=== PATIENT | male | born 1970 | race Caucasian/White ===

== ENCOUNTER 2020-03-01 16:26 | Emergency (ER) | payer OTHER, SELFPAY ==
--- NOTE | ~2020-03-01 | US_ITS ---
EXAMINATION: US venous doppler LE RT EXAM DATE: 03/01/2020 17:39 INDICATION: Right leg swelling, redness. TECHNIQUE: Multiple grayscale, color flow and Doppler images of the right lower extremity deep venous system were obtained and reviewed. Comparison is made to prior examination from 06/23/2010. FINDINGS: The right common femoral, femoral, popliteal and profunda veins demonstrate normal color fl ow, respiratory variation, augmentation and compressibility. Color flow confirmed within the posteri or tibial, peroneal, and greater saphenous veins. IMPRESSION: No right lower extremity deep venous thrombosis. Reviewed, dictated and finalized at location A.
--- NOTE | 2020-03-01 17:03 | PC.NURSE ---
Patient in ultrasound when called for triage.
[2020-03-01 17:55] VITALS: BP 140/67; PULSE 80; RESP 18; TEMP 36.5; O2SAT 100
--- NOTE | 2020-03-01 18:48 | ED.GENADULT ---
HPI - General Adult General Chief complaint: Extremity Injury, Lower Stated complaint: possible dvt Time Seen by Provider: 03/01/20 18:20 Source: patient History of Present Illness HPI narrative: Patient is a 49 y/o male complaining of right lower leg pain since yesterday. He describes his pain as sharp stabbing and rates it as 7/10. His pain is located on medial aspect of lower part of right lower leg and radiate to upper part of right lower leg. There is no alleviating or exacerbating factor. He suspect that he may have been bitten by something, but did not witness any bug biting her. He was seen at urgent care and directed here for further evaluation. He also notes that he has some swelling of right lower leg and foot starting several days ago. He states that he had DVT and PE many years ago. Related Data Home Medications Medication Instructions Recorded Confirmed clonazepam 1 mg tablet 1 mg PO DAILY 05/22/19 05/25/19 mirtazapine 15 mg tablet 15 mg PO HS 05/22/19 05/25/19 aspirin 81 mg PO DAILY 03/01/20 Allergies Allergy/AdvReac Type Severity Reaction Status Date / Time No Known Allergies Allergy Verified 03/04/20 10:35 Review of Systems Constitutional: Constitutional: Denies chills, Denies fever(s), Denies headache(s) and Denies weakness Eyes: Eyes: Denies blurry vision ENT: Denies headache(s) and Denies neck pain Cardiovascular: Cardiovascular: Denies chest pain and Denies dyspnea Respiratory: Respiratory: Denies cough and Denies dyspnea Gastrointestinal: Gastrointestinal: Denies abdominal pain, Denies diarrhea, Denies nausea and Denies vomiting Genitourinary: Genitourinary: Denies hematuria and Denies dysuria Musculoskeletal: Musculoskeletal: Reports as per HPI, Denies back pain, Denies neck pain and Reports other (right lower leg pain and swelling) Neurologic: Denies headache(s) and Denies weakness [facility] Past Medical History Medical History History of pulmonary embolism Family History Family History Father Cerebrovascular accident Patient's father is Family history of aortic aneurysm Mother Patient's mother is Sibling Hypertension Social History Social History (Updated 03/04/20 @ 10:36 by Jacqui Vines [facility]) Smoking packs per day: 0.25 Smoking cigarettes per day: 5.0 Years smoked: 30 Smoking pack-years: 7.50 Smoking status: Current some day smoker Tobacco type: cigarettes Second hand tobacco smoke exposure: No Smoking end date: 05/20/10 Alcohol intake: current Exam Const: General: no acute distress and well developed Orientation/consciousness: oriented to person, oriented to place, oriented to time and patient oriented x3 HENMT: Head: normocephalic Ears: external ears normal General nose exam: Normal external nose present Eyes: General: appearance normal, both eyes and all related structures Conjunctivae: conjunctivae normal Neck: Neck: normal visual inspection and full ROM Chest: Chest palpation & inspection: normal inspection of the chest and no tenderness Resp: Effort & Inspection: normal respiratory effort Auscultation: clear to auscultation bilaterally Cardio: Rate: regular rate Rhythm: regular rhythm GI: GI Palp: No abdominal tenderness and Yes Soft to palpation Skin: General skin exam: normal color and turgor normal Neuro: General: oriented to person, oriented to place, oriented to time and patient oriented x3 Cognition (Neuro): normal cognition Extrem: General: normal to inspection and full ROM Right upper extremity: edema Psych: Appearance: grossly normal Mental Status: mental status grossly normal Affect: normal affect Course Consultations Consultation #1: Discussed with Dr. Joseph, who agrees to follow up with the patient. Date: 03/01/20 Time: 19:57 Vital Signs Vital signs: Vital Signs Tem
[2020-03-01 19:25] LABS: Basophils Absolute Auto 0.1 K/mm3 (0.0-0.1); Basophils Percent Auto 0.7 % (0.2-1.2); Eosinophils Absolute Auto 0.3 K/mm3 (0-0.3); Eosinophils Percent Auto 3.8 % (0-4.4); Hematocrit 46.5 % (42.0-52.0); Hemoglobin 15.5 g/dL (14.0-18.0); Immature Granulocyte Absolute 0.03 K/mm3 (0.00-0.031); Immature Granulocyte Percent A 0.4 % (0-0.5); Lymphocytes Absolute Auto 1.75 K/mm3 (0.9-3.2); Lymphocytes Percent Auto 25.7 % (18.3-44.2); Mean Corpuscular HGB Conc 33.3 g/dl (32-36); Mean Corpuscular Hemoglobin 30.8 pg (26-34); Mean Corpuscular Volume 92.4 fl (80-100); Mean Platelet Volume 8.6 fl (7.4-10.4); Monocytes Absolute Auto 0.6 K/mm3 (0.1-0.6); Neutrophils Absolute Auto 4.1 K/mm3 (1.3-6.7); Neutrophils Percent Auto 60.4 % (45.5-73.1); Platelet Count Result 192 k/mm3 (150-375); Red Blood Count 5.03 M/mm3 (4.6-6.20); Red Cell Distribution Width 12.4 % (11.5-14.5); White Blood Count 6.8 K/mm3 (4.5-10.0)
[2020-03-01 19:35] LABS: INR 0.9; Prothrombin Time 12.3 Seconds (11.1-14.7)
[2020-03-01 19:36] LABS: Partial Thromboplastin Time 25.8 SECONDS (22.3-36.8)
[2020-03-01 19:40] LABS: Anion Gap 12 mmol/L (8-16); Blood Urea Nitrogen 18 mg/dL (9-20); Calcium 9.9 mg/dL (8.4-10.2); Carbon Dioxide 26 mmol/L (22-30); Chloride 103 mmol/L (98-107); D Dimer 0.39 ug/mL (<0.48); Estimated CRCL calculation 101 ml/min; Estimated Glomerular Filt Rate > 60; Glucose 148 mg/dL (75-110); Potassium 4.2 mmol/L (3.4-5.0); Sodium 141 mmol/L (137-145); Uric Acid 6.5 mg/dL (3.5-8.5)
[2020-03-01 19:57] LABS: NT Pro B Type Natriuretic Pept 31 PG/ML (5-100)
[2020-03-01 20:23] VITALS: BP 137/93; PULSE 81; RESP 20; O2SAT 99
== END 2020-03-01 20:24 | disposition home or self-care (01) ==
PROVIDERS: Emergency Provider Emergency Medicine; PCP Internal Medicine
DX: M79.661 Pain in right lower leg (principal); Z79.82 Long term (current) use of aspirin; Z86.711 Personal history of pulmonary embolism; F17.210 Nicotine dependence, cigarettes, uncomplicated
CPT/HCPCS: 36415; 80048; 83880; 84550; 85025; 85380; 85610; 85730; 93971; 99284

== ENCOUNTER 2020-03-21 12:42 | Outpatient (CLI) | payer OTHER, SELFPAY ==
--- NOTE | 2020-03-21 13:22 | ECHO_ITS ---
Patient Info Name: Soy Bucio Age: 50 years : 1970 Gender: Male Ht: 76 in Wt: 260 lbs BSA: 2.54 m2 HR: 71 bpm BP: 141 / 91 mmHg Technical Quality: Good Exam Date: 03/21/2020 1:51 PM Exam Location: [facility] Patient Status: Outpatient Admit Date: 03/21/2020 Staff Ordering Physician: Nirmal Whitley PA-C Supervisor Transcribing Operators: Frederick Manrique RDCS, RT Attending Provider: Nirmal Whitley PA-C Referring Physician: Angi AVILA; Exam Type: CA echo doppler color flow Study Info Indications R60.0 - Localized edema Complete two-dimensional, color flow and Doppler transthoracic echocardiogram is performed. Summary 1. Complete two-dimensional, color flow and Doppler transthoracic echocardiogram is performed. 2. Left ventricular chamber dimension is normal. 3. Left ventricular systolic function is normal, estimated at 60-65%. 4. The left ventricular diastolic function is normal. 5. E/e' 4 is not elevated. 6. Global longitudinal strain is normal at -17.4%. Left Ventricle E/e' 4 is not elevated. Global longitudinal strain is normal at -17.4%. Left ventricular chamber dimension is normal. Left ventricular systolic function is normal, estimated at 60-65%. The left ventricular diastolic function is normal. Right Ventricle Right ventricular chamber dimension is normal. Right ventricular systolic function is normal. Left Atria Left atrial chamber dimension is normal. Right Atria Right atrial chamber dimension is normal. Aortic Valve The aortic valve is trileaflet. There is no aortic valve stenosis. There is no aortic valve regurgitation. Pulmonic Valve There is no pulmonic regurgitation. Mitral Valve There is no mitral valve stenosis. There is no mitral valve regurgitation. Tricuspid Valve There is no tricuspid valve regurgitation. Pericardium/Pleural There is no pericardial effusion. Inferior Vena Cava Normal inferior vena cava with >50% collapse upon inspiration consistent with normal right atrial pressure, 5 mmHg. Aorta The aortic root size at the sinus of Valsalva is normal. Left Ventricular Outflow Tract Name Value Normal LVOT 2D LVOT Diameter 2.2 cm LVOT Doppler LVOT Peak Gradient 5 mmHg LVOT Mean Gradient 3 mmHg LVOT VTI 24 cm LVOT VTI/AV VTI Ratio 0.7 LVOT Stroke Volume 94 ml LVOT CO 7.3 l/min LVOT CI 2.9 l/min/m2 Mitral Valve Name Value Normal MV Doppler MV Decel Addison 236 cm/s2 MV PHT 74 ms MV Area (PHT) 3.0 cm2 4.0-5.0 MV Diastolic Function
== END 2020-03-21 12:43 | disposition home or self-care (01) ==
PROVIDERS: PCP Internal Medicine; Visit Provider Physician Assistant
DX: R60.0 Localized edema (principal)
CPT/HCPCS: 93306

== ENCOUNTER 2020-07-18 11:27 | Emergency (ER) | payer BC, SELFPAY ==
[2020-07-18] VITALS (12 sets, daily range): BP systolic 129–149; BP diastolic 72–91; PULSE 70–86; RESP 12–20; TEMP 36.1; O2SAT 95
--- NOTE | ~2020-07-18 | XR_ITS ---
EXAMINATION: XR chest 2V EXAM DATE: 07/18/2020 13:21 INDICATION: Cough, left leg swelling. TECHNIQUE: Frontal and lateral projections of the chest obtained and reviewed. Comparison is made to prior examination from 03/26/2014. FINDINGS: The lungs are clear. There are no pleural effusions. The cardiomediastinal silhouette is within normal limits. There is no pneumothorax suspected. The bones and soft tissues are unremarkab le. IMPRESSION: No acute cardiopulmonary findings. Reviewed, dictated and finalized at location A. [employer]
--- NOTE | ~2020-07-18 | US_ITS ---
EXAMINATION: US venous doppler [facility] EXAM DATE: 07/18/2020 12:36 INDICATION: Warm swollen left leg. TECHNIQUE: Multiple grayscale, color flow and Doppler images of the left lower extremity deep venous system were obtained and reviewed. There is no prior study for comparison. FINDINGS: The left common femoral, femoral and profunda veins demonstrate normal color flow, respirat ory variation, augmentation and compressibility. Compressibility, color flow confirmed within the le ft popliteal, posterior tibial, peroneal veins. The origin of the greater saphenous is patent. Several centimeters distal to the origin the greater s aphenous vein is completely thrombosed. Enlarged right inguinal lymph nodes measuring up to 3.1 x 0.8 x 1.8 cm, likely reactive given the fatty abril. IMPRESSION: 1. Left greater saphenous superficial thrombophlebitis. 2. No left lower extremity deep venous thrombosis. 3. Left inguinal lymphadenopathy, probably reactive. Reviewed, dictated and finalized at location A. NG MACHINE TENDER
--- NOTE | 2020-07-18 12:15 | PC.NURSE ---
At approximately 1212 pt to [facility] via wheelchair and radiology staff. Skin signs and breathing wnl. No acute distress.
--- NOTE | 2020-07-18 13:07 | ECG_ITS ---
Measurements Intervals [place] Rate: 72 P: 39 UT: 160 QRS: 43 QRSD: 105 T: 45 QT: 395 QTc: 434 Interpretive Statements SINUS RHYTHM NORMAL ECG Electronically Signed On 07-18-2020 14:00:59 OYSTER FISHERMAN by Jason Vigil D.O.
[2020-07-18 13:30] LABS: Alanine Aminotransferase 92 U/L (4-50); Albumin Level 4.8 g/dL (3.5-5.1); Alkaline Phosphatase 72 U/L (38-126); Anion Gap 6 mmol/L (8-16); Aspartate Amino Transferase 63 U/L (17-59); Bilirubin,Total 0.7 mg/dL (0.2-1.3); Blood Urea Nitrogen 13 mg/dL (9-20); Calcium 9.7 mg/dL (8.4-10.2); Carbon Dioxide 28 mmol/L (22-30); Chloride 103 mmol/L (98-107); Estimated CRCL calculation 101 ml/min; Estimated Glomerular Filt Rate > 60; Glucose 115 mg/dL (75-110); Potassium 4.1 mmol/L (3.4-5.0); Sodium 137 mmol/L (137-145)
[2020-07-18 13:35] LABS: CRP 2.4 mg/dL (<1.0)
[2020-07-18 13:40] LABS: NT Pro B Type Natriuretic Pept 33 PG/ML (5-100)
[2020-07-18 14:30] LABS: INR 0.9; Prothrombin Time 13.1 Seconds (11.1-14.7)
[2020-07-18 14:31] LABS: Partial Thromboplastin Time 28.6 SECONDS (22.3-36.8)
[2020-07-18 14:47] LABS: Basophils Absolute Auto 0.1 K/mm3 (0.0-0.1); Basophils Percent Auto 0.6 % (0.2-1.2); Eosinophils Absolute Auto 0.1 K/mm3 (0-0.3); Eosinophils Percent Auto 1.4 % (0-4.4); Hematocrit 45.3 % (42.0-52.0); Hemoglobin 15.1 g/dL (14.0-18.0); Immature Granulocyte Absolute 0.04 K/mm3 (0.00-0.031); Immature Granulocyte Percent A 0.5 % (0-0.5); Lymphocytes Absolute Auto 1.07 K/mm3 (0.9-3.2); Lymphocytes Percent Auto 13.4 % (18.3-44.2); Mean Corpuscular HGB Conc 33.3 g/dl (32-36); Mean Corpuscular Hemoglobin 30.2 pg (26-34); Mean Corpuscular Volume 90.6 fl (80-100); Mean Platelet Volume 9.1 fl (7.4-10.4); Monocytes Absolute Auto 0.8 K/mm3 (0.1-0.6); Monocytes Percent Auto 9.9 % (2.6-8.5); Neutrophils Absolute Auto 5.9 K/mm3 (1.3-6.7); Neutrophils Percent Auto 74.2 % (45.5-73.1); Platelet Count Result 218 k/mm3 (150-375); Red Cell Distribution Width 12.4 % (11.5-14.5)
--- NOTE | 2020-07-18 15:18 | ED.EXTPRO ---
HPI - Extremity Problem General Chief complaint: Extremity Problem,Nontraumatic Stated complaint: LLE swelling and artery is sore to touch Time Seen by Provider: 07/18/20 12:59 Source: patient Mode of arrival: ambulatory Limitations: no limitations History of Present Illness HPI Narrative: This is a 50 year old male with history of PE who presents for evaluation of left lower extremity swelling. He states he has had bilateral leg swelling for several months. HE has noticed over the past 2 days he has worsening swelling to his left leg. He also notes tenderness along inner leg and he has redness. He denies leg numbness or tingling. He denies chest pain or shortness of breath. He also denies fever. He reports he was diagnosed with PE 6 years ago but he was not placed on fpc anticoagulation. He takes aspirin 81 mg. Related Data Home Medications Medication Instructions Recorded Confirmed clonazepam 1 mg tablet 1 mg PO DAILY 05/22/19 03/23/20 mirtazapine 15 mg tablet 15 mg PO HS 05/22/19 03/23/20 aspirin 81 mg PO DAILY 03/01/20 03/23/20 Allergies Allergy/AdvReac Type Severity Reaction Status Date / Time No Known Allergies Allergy Verified 07/18/20 11:49 Review of Systems Review of Systems: All systems reviewed & are unremarkable except as noted in HPI and below Constitutional: Constitutional: Denies chills, Denies fever(s) and Denies weakness Respiratory: Respiratory: Denies cough and Denies dyspnea Gastrointestinal: Gastrointestinal: Denies abdominal pain, Reports bloating, Denies diarrhea, Denies nausea and Denies vomiting Integumentary/Breasts: Skin/Breast: Reports erythema Neurologic: Denies headache(s), Denies numbness and Denies weakness [facility] Past Medical History Medical History History of pulmonary embolism Family History Family History Father Cerebrovascular accident Patient's father is Family history of aortic aneurysm Mother Patient's mother is Sibling Hypertension Social History Social History Smoking packs per day: 0.25 Smoking cigarettes per day: 5.0 Years smoked: 30 Smoking pack-years: 7.50 Smoking status: Current every day smoker Tobacco type: cigarettes Second hand tobacco smoke exposure: No Smoking end date: 05/20/10 Alcohol intake: current Gender identity (if verbalized by the patient): Male Exam Narrative: Exam Narrative: GENERAL: Well-appearing, well-nourished, and in no acute distress. HEAD: Normocephalic, atraumatic EYES: PERRLA and EOMI, conjunctiva clear without discharge THROAT:Mucous membranes moist, RESPIRATORY: No respiratory distress, Airway patent, Respirations non-labored, Clear to auscultation without rales, rhonchi or wheeze HEART: Regular rate and rhythm. No murmur heard. Normal peripheral pulses. ABDOMEN: Soft, nontender, nondistended, normal active bowel sounds. No masses. No rebound or guarding, No organomegaly. NEURO: Alert and oriented x3. CN 2-12 grossly intact. No focal deficits. PSYCH: Normal mood and affect. Const: General: alert Orientation/consciousness: patient oriented x3 Skin: Other: mild erythema to left lower extremity medial thigh and lower leg, TTP palpation Neuro: General: patient oriented x3 and moves all extremities Extrem: Other: bilateral pedal edema, worse on left, pitting edema to left; bilateral palpable pedal pulses Course Reevaluation(s) Reevaluation #1: I Discussed with patient labs and ultrasound findings. I discussed discharge plan to start on prophylaxis thinner. He understands he will need to follow up with PCP Date: 07/18/20 Time: 15:00 Consultations Consultation #1: I Discussed case with Dr. Joseph about diagnosis and my plan to start prophylactic anticoagulation given hi
== END 2020-07-18 15:51 | disposition home or self-care (01) ==
PROVIDERS: Emergency Provider General Practice; PCP Internal Medicine
DX: I80.292 Phlebitis and thrombophlebitis of other deep vessels of left lower extremity (principal); Z86.711 Personal history of pulmonary embolism; R60.0 Localized edema; Z79.82 Long term (current) use of aspirin; F17.210 Nicotine dependence, cigarettes, uncomplicated
CPT/HCPCS: 36415; 71046; 80053; 83880; 85025; 85610; 85730; 86140; 93005; 93971; 99284

== ENCOUNTER → 2020-09-06 03:32 | Outpatient (CLI) | payer BC, SELFPAY ==
[2020-09-06 20:30] LABS: SARS-CoV-2 RNA PCR Negative
== END ==
PROVIDERS: PCP Internal Medicine; Visit Provider Internal Medicine Gastroenterology
DX: Z01.812 Encounter for preprocedural laboratory examination (principal); Z20.822 Contact with and (suspected) exposure to COVID-19
CPT/HCPCS: C9803; U0003; U0005

== ENCOUNTER 2020-09-09 01:43 | Day surgery (SDC) | payer BC, SELFPAY ==
[2020-08-31 16:13] VITALS: BMI 30.3
[2020-09-09 08:31] VITALS: BP 139/80; PULSE 79; RESP 18; TEMP 37.2; O2SAT 99; BMI 30.6
[2020-09-09] MEDS: LACTATED RINGERS 1,000 ML 150 ML IV CONT (08:37)
--- NOTE | 2020-09-09 08:46 | WPDANESEPPF ---
Anes - Initial Pre Proc Eval Procedure: Operation Date: 09/09/20 11:30 Proposed Procedures p Esophagogastroduodenoscopy - Valdemar Huerta MD Date/Time: 09/09/20 08:46 Surgeon: Valdemar Huerta MD Pre Op Diagnosis: dysphagia Patient Data Age: 50 Gender: M Height: 6 ft 4 in Weight: 114.1 kg Last Vital Signs Temp 99 F 09/09/20 08:31 Pulse 79 09/09/20 08:31 Resp 18 09/09/20 08:31 BP 139/80 09/09/20 08:31 Pulse Ox 99 09/09/20 08:31 Allergies Allergy/AdvReac Type Severity Reaction Status Date / Time No Known Allergies Allergy Verified 09/09/20 08:29 Home Medications Medication Instructions Recorded Confirmed Type clonazepam 1 mg tablet 1 mg PO DAILY 05/22/19 08/31/20 History mirtazapine 15 mg tablet 15 mg PO HS 05/22/19 08/31/20 History aspirin 81 mg PO DAILY 03/01/20 08/31/20 History simvastatin 20 mg tablet 20 mg PO DAILY #90 tablet 03/02/20 08/31/20 Rx fenofibrate 54 mg tablet 54 mg PO DAILY #90 tablet 03/29/20 08/31/20 Rx clindamycin phosphate 1 % topical 1 applic TOPICAL BID #30 g 06/27/20 08/31/20 Rx gel losartan 100 mg tablet 100 mg PO DAILY #90 tablet 07/25/20 08/31/20 Rx gabapentin 100 mg capsule 100 mg PO .hs #90 cap 08/16/20 08/31/20 Rx hydrocodone 10 mg-acetaminophen 1 tablet PO Q12H PRN #60 tablet 08/17/20 08/31/20 Rx 325 mg tablet varenicline 0.5 mg (11)-1 mg (42) See Rx Instructions PO DIRECTED 08/22/20 09/09/20 Rx tablets in a dose pack #53 ea Patient hx anesthesia problems: none Family hx anesthesia problems: none PMFSH Past Medical History Medical History (Updated 09/09/20 @ 08:40 by Angel Maki MD) Anxiety disorder, unspecified Essential (primary) hypertension History of pulmonary embolism Pure hypercholesterolemia, unspecified Family History Family History Father Cerebrovascular accident Patient's father is Family history of aortic aneurysm Mother Patient's mother is Sibling Hypertension Social History Social History Smoking packs per day: 1 Smoking cigarettes per day: 20.0 Years smoked: 35 Smoking pack-years: 35.00 Smoking status: Current every day smoker Tobacco type: cigarettes Second hand tobacco smoke exposure: No Smoking end date: 05/20/10 Alcohol intake: current Drinks per week: 7 Living arrangements: with family Gender identity (if verbalized by the patient): Male Spiritual care concerns: No Anes - Eval Final PreProcedure Day of Procedure 09/09/20 08:46 Patient weight: obese Heart: regular rate and rhythm Lungs: clear to auscultation Airway: Mallampati scale class II Neurological: alert and oriented Last oral intake: >/= 8 hours ASA classification: III Emergent: no Anesthetic plan: proceed Anesthesia type and monitoring: general GIVS and standard monitoring Informed Consent: The patient's anesthetic plan and its attendant risks and benefits were discussed with the patient/family/POA. Questions were solicited and answers provided to the satisfaction of the patient/family/POA.
--- NOTE | 2020-09-09 08:54 | PM.HPGS ---
History of Present Illness History of Present Illness Consent: Risks, benefits, and alternatives have been discussed and questions answered. Patient agrees to proceed with procedure. Chief complaint: dysphagia Narrative: Soy Bucio is a 50 year old male With swallowing issues. At times it feels as though saliva from his throat will go down the wrong pipe and gag him. also, sometimes when drinking water it will seem to go the wrong way and caused him to choke. He denies any difficulty getting food down Review of Systems Review of Systems: All systems reviewed & are unremarkable except as noted in HPI and below PMFSH Past Medical History Medical History Anxiety disorder, unspecified Essential (primary) hypertension History of pulmonary embolism Pure hypercholesterolemia, unspecified Family History Family History Father Cerebrovascular accident Patient's father is Family history of aortic aneurysm Mother Patient's mother is Sibling Hypertension Social History Social History Smoking packs per day: 1 Smoking cigarettes per day: 20.0 Years smoked: 35 Smoking pack-years: 35.00 Smoking status: Current every day smoker Tobacco type: cigarettes Second hand tobacco smoke exposure: No Smoking end date: 05/20/10 Alcohol intake: current Drinks per week: 7 Living arrangements: with family Gender identity (if verbalized by the patient): Male Spiritual care concerns: No Meds Home Medications and Allergies Home Medications Medication Instructions Recorded Confirmed Type clonazepam 1 mg tablet 1 mg PO DAILY 05/22/19 08/31/20 History mirtazapine 15 mg tablet 15 mg PO HS 05/22/19 08/31/20 History aspirin 81 mg PO DAILY 03/01/20 08/31/20 History simvastatin 20 mg tablet 20 mg PO DAILY #90 tablet 03/02/20 08/31/20 Rx fenofibrate 54 mg tablet 54 mg PO DAILY #90 tablet 03/29/20 08/31/20 Rx clindamycin phosphate 1 % topical 1 applic TOPICAL BID #30 g 06/27/20 08/31/20 Rx gel losartan 100 mg tablet 100 mg PO DAILY #90 tablet 07/25/20 08/31/20 Rx gabapentin 100 mg capsule 100 mg PO .hs #90 cap 08/16/20 08/31/20 Rx hydrocodone 10 mg-acetaminophen 1 tablet PO Q12H PRN #60 tablet 08/17/20 08/31/20 Rx 325 mg tablet varenicline 0.5 mg (11)-1 mg (42) See Rx Instructions PO DIRECTED 08/22/20 09/09/20 Rx tablets in a dose pack #53 ea Allergies Allergy/AdvReac Type Severity Reaction Status Date / Time No Known Allergies Allergy Verified 09/09/20 08:29 Vital Signs Vital Signs - 24 hr 09/09/20 08:31 Temperature 37.2 C Pulse Rate 79 Respiratory Rate 18 Blood Pressure 139/80 Pulse Oximetry 99 Exam Const: General: alert Orientation/consciousness: patient oriented x3 Resp: Auscultation: clear to auscultation bilaterally Cardio: Rhythm: regular rhythm GI: GI Palp: Yes Soft to palpation and No Tenderness to palpation present (GI) Neuro: General: patient oriented x3 Assessment and Plan Assessment and plan (1) Dysphagia: Code(s): R13.10 - Dysphagia, unspecified Status: Acute Assessment and Plan: EGD with possible biopsy or dilatation or cautery.
[2020-09-09 09:07] VITALS: BP 118/75; PULSE 78; RESP 18; O2SAT 95
[2020-09-09 09:17] VITALS: BP 122/72; PULSE 66; RESP 18; O2SAT 98
[2020-09-09 09:25] VITALS: BP 128/78; PULSE 67; RESP 18; O2SAT 96
== END 2020-09-09 09:42 | disposition home or self-care (01) ==
PROVIDERS: PCP Internal Medicine; Visit Provider Internal Medicine Gastroenterology
PROC: 0DJ08ZZ Inspection of Upper Intestinal Tract, Via Natural or Artificial Opening Endoscopic (ICD-10-PCS; CPT 43235; principal; 2020-09-09 11:30)
DX: R13.12 Dysphagia, oropharyngeal phase (principal); K22.70 Barrett's esophagus without dysplasia; K21.00 Gastro-esophageal reflux disease with esophagitis, without bleeding; K29.70 Gastritis, unspecified, without bleeding; Z79.82 Long term (current) use of aspirin; F41.9 Anxiety disorder, unspecified; Z86.711 Personal history of pulmonary embolism; E78.00 Pure hypercholesterolemia, unspecified; Z87.891 Personal history of nicotine dependence; E66.9 Obesity, unspecified; Z68.30 Body mass index [BMI] 30.0-30.9, adult
CPT/HCPCS: 43239; 87081; 88305; 88313; C9803; J2704; J7120; U0003; U0005

== ENCOUNTER 2022-10-16 15:27 | Outpatient (CLI) | payer BC, SELFPAY ==
--- NOTE | 2022-10-16 15:42 | ECG_ITS ---
Measurements Intervals [place] Rate: 73 P: 32 CT: 159 QRS: 10 QRSD: 104 T: 17 QT: 410 QTc: 454 Interpretive Statements SINUS RHYTHM DELAYED PRECORDIAL R/S TRANSITION BORDERLINE T WAVE ABNORMALITY- INFERIOR LEADS BASELINE ARTIFACT- I, II, III, AVR, AVL, AVF BORDERLINE ECG COMPARED TO ECG 07/18/2020 13:29:14 NO SIGNIFICANT CHANGES Electronically Signed On 10-16-2022 16:27:01 CDT by Jason Vigil D.O.
[2022-10-16 16:12] LABS: Anion Gap 9 mmol/L (8-16); Blood Urea Nitrogen 10 mg/dL (9-20); Calcium 9.4 mg/dL (8.4-10.2); Carbon Dioxide 29 mmol/L (22-30); Chloride 102 mmol/L (98-107); Estimated Glomerular Filt Rate > 60; Glucose 109 mg/dL (65-110); Potassium 4.1 mmol/L (3.4-5.0); Sodium 140 mmol/L (137-145)
== END 2022-10-16 15:28 | disposition home or self-care (01) ==
LOC: ANHSURGERY 15:32
PROVIDERS: Anesthesiology; PCP Internal Medicine; Visit Provider Surgery
DX: I10 Essential (primary) hypertension (principal); Z79.899 Other long term (current) drug therapy; E78.00 Pure hypercholesterolemia, unspecified
CPT/HCPCS: 36415; 80048; 93005

== ENCOUNTER 2022-10-17 00:14 | Day surgery (SDC) | payer BC, SELFPAY ==
[2022-10-11 09:28] VITALS: BMI 32.2
--- NOTE | 2022-10-11 09:36 | PC.NURSE ---
Report to the Outpatient Waiting Room, entrance under the green pavilion located off [facility], at time 6:00 on date 10/17/22. Planned Procedure Time: 7:30. Time changes happen often and if your time is changed the preop area will call you the afternoon before. - You and your visitor will be asked to self-screen and do not enter if you have any COVID symptoms. - A mask is optional within the hospital at this time. Patients may have clear liquids (water, carbonated beverages, clear teas, apple juice) until 3 hours prior to surgery (4:30) with a maximum of 20 ounces. - No food from midnight until time of surgery Take the following medications with a SIP of water the morning of surgery: CARVEDILOL, CLONAZEPAM, PAROXETINE DO NOT STOP ANY OF YOUR OTHER PRESCRIPTION MEDICATIONS PRIOR TO SURGERY?EXCEPT THE FOLLOWING Medications to discontinue per physician: SWITCH TO 81MG ASPIRIN STARTING 10/11/22 Please no make-up, nail setswana, hairspray, perfume, deodorant, or body powder the day of surgery. No jewelry (including any body piercings) or valuables the day of surgery, leave them at home. Please take a shower or bath the night before, or the morning of, surgery with an antibacterial soap (HIBICLENS). Wear comfortable, loose fitting clothing. - Jewelry must be removed prior to entering the operating room. Rings and piercings that are not removed may be cut off. - The hospital will not accept responsibility for valuables. - Please leave all valuables, including medications, at home the day of surgery. If you are going home after surgery, a licensed front end driver must drive you home. - NO public transportation without another adult if you receive anesthesia. - We recommend that an adult stay with you for 24 hours following discharge. - We also recommend that you do not drive, make important decision, drink alcoholic beverages, or take any drugs that were not prescribed by your health care provider for at least 24 hours after your discharge time. Follow any additional instructions given to you from your surgeon. If you or anyone in your household have experienced Covid symptoms in the past week, please notify your surgeon or the nurse liaison at the phone number below for possible testing. Telephone instructions given to PT - EDY FRENCH and asked if any additional questions and then verbalized understanding. Patient advised to call surgeon office or pre surgery nurse liaison [phone] if any additional questions.
--- NOTE | 2022-10-16 14:32 | WPDANESEPPF ---
Anes - Initial Pre Proc Eval Procedure: Operation Date: 10/17/22 07:30 Proposed Procedures p Open Umbilical Hernia Repair with Possible Mesh - Josiah Bowden MD Date/Time: 10/16/22 14:32 Surgeon: Josiah Bowden MD Pre Op Diagnosis: reducible umbilical hernia Patient Data Age: 52 Gender: M Height: 1.93 m Weight: 120.2 kg Allergies Allergy/AdvReac Type Severity Reaction Status Date / Time No Known Allergies Allergy Verified 10/17/22 06:22 Home Medications Medication Instructions Recorded Confirmed Type clonazepam 1 mg tablet (Klonopin) 1 mg PO DAILY 05/22/19 10/17/22 History mirtazapine 15 mg tablet (Remeron) 15 mg PO HS 05/22/19 10/17/22 History hydrochlorothiazide 12.5 mg tablet 12.5 mg PO DAILY #30 tabs 04/11/22 10/17/22 Rx simvastatin 20 mg tablet 20 mg PO DAILY #90 tabs 05/30/22 10/17/22 Rx paroxetine HCl 10 mg tablet (Paxil) 10 mg PO DAILY 07/25/22 10/17/22 History fenofibrate 54 mg tablet 54 mg PO DAILY #90 tabs 09/10/22 10/17/22 Rx aspirin 325 mg tablet 325 mg PO DAILY 10/11/22 10/17/22 History carvedilol 6.25 mg tablet 6.25 mg PO Q12H #60 tabs 10/11/22 10/17/22 Rx omeprazole 40 mg capsule,delayed See Rx Instructions .Route 10/11/22 10/17/22 Rx release .COMPLEX #30 caps Patient hx anesthesia problems: none Family hx anesthesia problems: none Results Review: All pre-operative results and documents have been reviewed as part of the pre-operative evaluation. FORMERLY [facility], [facility]–1983 Past Medical History Medical History Anxiety disorder, unspecified Essential (primary) hypertension History of pulmonary embolism Pure hypercholesterolemia, unspecified Family History Family History Father Cerebrovascular accident Patient's father is Family history of aortic aneurysm Mother Patient's mother is Sibling Hypertension Social History Social History Smoking packs per day: 0.5 Smoking cigarettes per day: 10.0 Years smoked: 35 Smoking pack-years: 17.50 Smoking status: Current some day smoker Tobacco type: cigarettes Second hand tobacco smoke exposure: No Smoking end date: 05/20/10 Alcohol intake: current Drinks per week: 6 Substance use: never Substance use type: does not use Lack of Transportation: No Lack of Food: Never True Current Housing: I Have Housing Concerned About Future Housing: No Difficulty Paying Gas/Electric Bills: No Difficulty Paying for Meds: No Currently Unemployed: No Living arrangements: with family Gender identity (if verbalized by the patient): Male Spiritual care concerns: No Anes - Eval Final PreProcedure Day of Procedure 10/16/22 14:32 Patient weight: obese Heart: regular rate and rhythm Lungs: clear to auscultation Airway: Mallampati scale class II (upper chipped tooth) Neurological: alert and oriented Last oral intake: >/= 8 hours ASA classification: III Emergent: no Anesthetic plan: proceed Anesthesia type and monitoring: general ETT and standard monitoring Results Review: All pre-operative results and documents have been reviewed as part of the pre-operative evaluation. Informed Consent: The patient's anesthetic plan and its attendant risks and benefits were discussed with the patient/family/POA. Questions were solicited and answers provided to the satisfaction of the patient/family/POA.
[2022-10-17] VITALS (8 sets, daily range): BP systolic 124–157; BP diastolic 70–99; PULSE 66–77; RESP 10–20; TEMP 36.3–36.5; O2SAT 93–99
[2022-10-17] MEDS: ACETAMINOPHEN 500 MG TABLET 1000 MG PO (06:25)
[2022-10-17] MEDS: LACTATED RINGERS 1,000 ML 30 ML IV CONT (06:51)
[2022-10-17] MEDS: KETOROLAC 15 MG/ML VIAL (*BKC) IV PUSH ×2 (06:53→08:24)
--- NOTE | 2022-10-17 07:27 | WPDHPUPDATE1 ---
History and Physical Update Update Date/Time: 10/17/22 07:27 History and Physical has been reviewed, including an updated exam of the patient. There are NO changes in the patient's condition. Risks, benefits, and alternatives have been discussed and questions answered. Patient agrees to proceed with procedure.
[2022-10-17] MEDS: ceFAZolin 3 GM/D5W 100 ML 100 ML IVPB (07:38)
[2022-10-17] MEDS: LIDO 1%/EPINEPHRINE 1:100,000 20 ML VIAL 30 ML INFILTRATE (07:59)
--- NOTE | 2022-10-17 08:43 | P.OP_ITS ---
Procedure Note - Detailed Date of Procedure 10/17/22 Pre-op Diagnosis Reducible umbilical hernia Post-op Diagnosis Same Procedure Performed Open umbilical hernia repair without mesh Surgeon Josiah Bowden MD Premium Card Cancellation Clerk Franco WILLAMS Anesthesia General Indications Patient is a 52-year-old male presented with a enlarging bulge at the umbilicus. It was reducible. On examination he had a reducible umbilical hernia. Presents now for repair. Findings 2cm x 2cm umbilical defect. Preperitoneal fat within the hernia sac. Description of Procedure After informed consent was obtained patient brought to the operating room was placed in supine position and general LMA anesthesia was then administered. The abdomen was then prepped and draped in usual sterile fashion. Time-out was then performed correctly identifying the patient as well as procedure to be performed. He was given 3g of Ancef for perioperative IV antibiotics. I then made a curved half-clemens incision just at the lower portion of the umbilical fold. This was to excise some of the excess skin at the umbilicus due to the herniation. Dissection carried down through the dermis with a scalpel and the portion of excess skin was excised off and discarded. I then dissected down through the subcutaneous tissues electrocautery and identified the hernia sac. I followed this down to the neck of the hernia sac at the fascial defect. I then encircled the. With blunt clamp dissection and then disconnected the hernia sac from the overlying dermis of the umbilicus. We then opened the hernia sac to find some preperitoneal fat within the hernia sac. I then resected the hernia sac down to the level of the fascia edges. The preperitoneal fat was then reduced back into the abdomen. The defect measured 2cm in length by 2cm in width. I then decided to go ahead closed the defect with out the use of any mesh. Edges came together without any tension. Eight separate 0 Ethibond sutures were then placed with good 1cm bites on either side of the defect of fascia. The defect was closed without any problems. I then irrigated the incision sterile saline solution hemostasis was excellent. I then injected 1% lidocaine mixed with 0.5% Marcaine with epinephrine around the fascial edges and in the subcutaneous tissues around the incision. I then recreated the inverted umbilicus by tacking down the dermis of the umbilicus to the fascia utilizing 3-0 Vicryl suture. Interrupted 2-0 Vicryl sutures were then used to close the deeper subcutaneous tissues. This is followed by liver interrupted 3-0 Vicryl sutures placed in a deep dermal fashion to approximate the skin edges. A running subcuticular 4-0 Monocryl suture was then used to close the incision and approximate the skin edges completely. The incision was then cleaned and then skin glue was applied to the incision line. A pressure dressing was applied to the wound. And abdominal binder was placed as well. The patient tolerated the procedure well no complications. All sponges, needles, and instrument counts were correct at the end procedure. EBL was __5_cc. The patient was awakened and taken to recovery in stable and satisfactory condition. Implants None Estimated Blood Loss 5 Drains No Packing No Pathology None sent Complications No immediate complications Condition Stable Disposition PACU [facility] Billing Surgery - Charge Forward: Surgery Billing
[2022-10-17] MEDS: oxyCODONE HCL (*CRX) 5 MG TAB IR PO (09:54)
== END 2022-10-17 10:38 | disposition home or self-care (01) ==
PROVIDERS: PCP Internal Medicine; Visit Provider Surgery
PROC: (CPT 49591; principal; 2022-10-17 07:30)
DX: K42.9 Umbilical hernia without obstruction or gangrene (principal); I10 Essential (primary) hypertension; E78.00 Pure hypercholesterolemia, unspecified; F41.9 Anxiety disorder, unspecified; Z86.711 Personal history of pulmonary embolism; Z79.82 Long term (current) use of aspirin; F17.210 Nicotine dependence, cigarettes, uncomplicated; E66.9 Obesity, unspecified; Z68.32 Body mass index [BMI] 32.0-32.9, adult
CPT/HCPCS: 49591; A9270; J0690; J1100; J1170; J1885; J2250; J2405; J2704; J3010; J7120

== ENCOUNTER 2022-11-09 08:01 | Outpatient (CLI) | payer BC, SELFPAY ==
--- NOTE | ~2022-11-09 | MR_ITS ---
MRI of the brain Clinical History: Imbalance, vertigo Technique: Axial and sagittal T1-weighted images were acquired. These were followed by axial T2-weigh brisa, diffusion weighted, gradient, and FLAIR images. Thin cut coronal T1-weighted and T2-weighted sarahy ges, and thin cut axial T1-weighted images, were acquired through the internal auditory canals. Follo wing intravenous administration of 20 cc MultiHance gadolinium, T1-weighted fat-sat imaging was perfo rmed through the brain in the axial and coronal planes. Thin cut T1-weighted postcontrast imaging was performed through the internal auditory canals in the axial and coronal planes. Findings: No abnormal signal seen in the brain parenchyma. No acute infarct, intracranial hemorrhage, or mass lesion. Ventricles and subarachnoid spaces are mildly prominent. Orbits are unremarkable. Paranasal sinuses a nd mastoid air cells are clear. Major intracranial flow voids are intact. Sagittal midline structures are intact. No abnormal mass lesion or enhancement seen at the internal auditory canals or cerebellopontine angle regions. IMPRESSION: Unremarkable exam. Reviewed, dictated and finalized at location . IMPRESSION: Unremarkable exam.
== END 2022-11-09 08:02 | disposition home or self-care (01) ==
PROVIDERS: PCP Internal Medicine; Visit Provider Physician Assistant
DX: R42 Dizziness and giddiness (principal); R29.6 Repeated falls; R26.89 Other abnormalities of gait and mobility
CPT/HCPCS: 70553; A9577

== ENCOUNTER 2023-05-28 13:07 | Emergency (ER) | payer OTHER, SELFPAY ==
--- NOTE | ~2023-05-28 | XR_ITS ---
EXAMINATION: XR hip RT 2V w AP pelvis DATE: 05/28/2023 14:30 INDICATION: Hip pain. Fall. TECHNIQUE: An anteroposterior view of the pelvis and 2 views of right hip were obtained. COMPARISON: Right hip radiographs 04/17/2011 FINDINGS: Bone alignment is normal. No fracture. There is mild osteoarthritis of the hips. IMPRESSION: 1. Mild osteoarthritis of the hips. Reviewed, dictated and finalized at location A. IFIED TECHNICIAN SPECIALIST
[2023-05-28 13:10] VITALS: BP 146/88; PULSE 70; RESP 16; TEMP 36.5; O2SAT 100
[2023-05-28 14:16] VITALS: BP 136/88; PULSE 72; RESP 15; O2SAT 95
--- NOTE | 2023-05-28 15:18 | ED.LOWEXIN ---
HPI - Extremity Injury (Lower) General Chief Complaint: Extremity Injury, Lower Stated Complaint: Hip pain Time Seen by Provider: 05/28/23 14:11 Source: patient Mode of arrival: ambulatory Limitations: no limitations History of Present Illness HPI Narrative: Patient is a 53-year-old male who presents ED with report of right hip pain. Patient reports he injured himself while deer hunting several weeks ago and states he tripped while trying to jump over a [place]ut. He states his right leg folded up towards his face. He complains of pain to his right hip and groin since then. Patient has been ambulatory, but pain is worse with walking and sitting. Patient has not tried anything for pain. 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 Has not tried contacting PCP. Denies any numbness or tingling. No swelling. Related Data Home Medications Medication Instructions Recorded Confirmed clonazepam 1 mg tablet (Klonopin) 1 mg PO DAILY 05/22/19 01/14/23 mirtazapine 15 mg tablet (Remeron) 15 mg PO HS 05/22/19 01/14/23 paroxetine HCl 10 mg tablet (Paxil) 10 mg PO DAILY 07/25/22 01/14/23 aspirin 325 mg tablet 325 mg PO DAILY 10/11/22 01/14/23 Allergies Allergy/AdvReac Type Severity Reaction Status Date / Time No Known Allergies Allergy Verified 05/28/23 14:09 Review of Systems Review of Systems: CONSTITUTIONAL: Denies fever, chills, or sweats. MUSCULOSKELETAL: See HPI. NEUROLOGIC: Denies headache, dizziness, numbness, or weakness. All systems reviewed & are unremarkable except as noted in HPI and below PMFSH Past Medical History Medical History Anxiety disorder, unspecified Essential (primary) hypertension History of pulmonary embolism Pure hypercholesterolemia, unspecified Surgical History Surgical History Hx of umbilical hernia repair Open umbilical hernia repair on 10/17/22. Family History Family History Father Cerebrovascular accident Patient's father is Family history of aortic aneurysm Mother Patient's mother is Sibling Hypertension Social History Social History Smoking packs per day: 0.5 Smoking cigarettes per day: 10.0 Years smoked: 35 Smoking pack-years: 17.50 Smoking status: Current some day smoker Tobacco type: cigarettes Second hand tobacco smoke exposure: No Smoking end date: 05/20/10 Alcohol intake: current Drinks per week: 6 Substance use: never Substance use type: does not use Lack of Transportation: No Lack of Food: Never True Current Housing: I Have Housing Concerned About Future Housing: No Difficulty Paying Gas/Electric Bills: No Difficulty Paying for Meds: No Currently Unemployed: No Living arrangements: with family Gender identity (if verbalized by the patient): Male Spiritual care concerns: No Exam Narrative: GENERAL: Well appearing, well-nourished, non-toxic, in no acute distress. HEAD: Normocephalic, atraumatic. RESPIRATORY: Airway patent, respirations nonlabored. Clear to auscultation bilaterally, no rales, rhonchi, wheezing. CARDIOVASCULAR: Regular rate and rhythm without murmurs, rubs, or gallops. Pedal pulses 2+. MUSCULOSKELETAL: Moves all extremities. No gross deformities. No significant pain with range of motion of right leg/flexion/extension of hip. Negative SLR. Mild tenderness to palpation over right proximal lateral thigh/hip joint. No swelling. SKIN: Warm, dry, normal color. NEURO: A&O X3. Speech clear. Cranial nerves II-XII grossly intact. Steady gait. No ataxic movements. PSYCHIATRIC: Appropriate mood and affect. Normal interaction. Course Vital Signs Vital signs: Vital Signs
[2023-05-28] MEDS: KETOROLAC (*BKC) 60 MG/2 ML VIAL IM (15:24)
== END 2023-05-28 15:52 | disposition home or self-care (01) ==
PROVIDERS: Emergency Provider Physician Assistant; PCP Internal Medicine
DX: M25.551 Pain in right hip (principal); F17.210 Nicotine dependence, cigarettes, uncomplicated; F41.9 Anxiety disorder, unspecified; I10 Essential (primary) hypertension; Z86.711 Personal history of pulmonary embolism
CPT/HCPCS: 73502; 96372; 99283; J1885

== ENCOUNTER 2023-08-29 14:42 | Outpatient (CLI) | payer BC, SELFPAY ==
--- NOTE | ~2023-08-29 | XR_ITS ---
XR hip BI 2V w AP pelvis 08/29/2023 15:12 Indication: Status post fall. Right hip pain. Procedure: AP pelvis and 2 views each hip Comparison: No prior studies for comparison. Findings: Pelvic rings are intact. No fracture, subluxation or dislocation. Sacral foramen are symmet candace. There is mild symmetric osteoarthritis of the hips. Impression: 1: No acute fracture. Reviewed, dictated and finalized at location A. Impression: 1: No acute fracture.
== END 2023-08-29 14:43 ==
PROVIDERS: PCP Internal Medicine; Visit Provider Internal Medicine
DX: M25.551 Pain in right hip (principal); W19.XXXD Unspecified fall, subsequent encounter
CPT/HCPCS: 73521

== ENCOUNTER 2023-09-12 08:42 | Outpatient (CLI) | payer BC, SELFPAY ==
--- NOTE | ~2023-09-12 | MR_ITS ---
MRI of the right hip Clinical history: Pain Technique: Coronal T1-weighted, T2-weighted, and proton-density fat-sat images, and axial T1-weighted and proton-density fat-sat images were acquired through the pelvis. Coronal T2-weighted images and c oronal, axial, and sagittal proton-density fat-sat images were acquired through the right hip. Findings: There is no acute fracture or avascular necrosis of either hip. Bone marrow signals the pro ximal femora and pelvic bones are unremarkable. Bilateral hip joint spaces are intact. Bilateral mild diffuse chondral thinning bilaterally. No hip joint effusion seen. Probable mild degenerative tearin g of the right anterior acetabular labrum. Visualized musculature about the pelvis and right hip is unremarkable. No muscle atrophy or edema. Vi sualized tendons are intact. No soft tissue mass or fluid flexion seen. No evidence of bursitis. IMPRESSION: Suspected mild degenerative tearing of the anterior acetabular labrum. Mild chondral thinning of bilateral hip joints. No acute abnormality seen. Reviewed, dictated and finalized at location .
--- NOTE | ~2023-09-12 | US_ITS ---
US abdomen limited INDICATION: Abnormal lab studies. PROCEDURE: Realtime right upper abdominal ultrasound. COMPARISON: No prior studies for comparison. FINDINGS: The pancreas is normal without focal mass or pancreatic ductal dilation. Liver echotexture is increased, consistent with fatty infiltration. There is normal directional flow in the portal ve in. The gallbladder is normal without stones, gallbladder wall thickening or pericholecystic fluid. Comm on bile duct measures 4 mm. No sonographic Manrique's sign. IMPRESSION: 1: Fatty infiltration of the liver. Reviewed, dictated and finalized at location B.
== END 2023-09-12 08:43 ==
PROVIDERS: PCP Internal Medicine; Visit Provider Internal Medicine
DX: R79.89 Other specified abnormal findings of blood chemistry (principal); M25.551 Pain in right hip; K76.0 Fatty (change of) liver, not elsewhere classified
CPT/HCPCS: 73721; 76705

== ENCOUNTER 2023-11-11 10:03 | Outpatient (CLI) | payer BC, SELFPAY ==
--- NOTE | ~2023-11-11 | XR_ITS ---
XR hip BI 2V w AP pelvis Ordering provider: Bryson Samuels DO History: . PAIN FROM FALL X4 MNTHS AGO, TEAR IN RT HIP ON MRI . Comparison: August 29, 2023 FINDINGS: BONES: No acute fracture or dislocation. Sclerotic lesion seen in the right femoral neck most likely bone island. HIP JOINT SPACES: Normal. SACROILIAC JOINT SPACES/LUMBAR SPINE: The sacroiliac joint spaces are normal. Normal visualized lower lumbar spine. PUBIC SYMPHYSIS: Normal. SOFT TISSUES: Normal. IMPRESSION: No acute osseous abnormality of the bilateral hips and pelvis. Reviewed, dictated and finalized at location A.
--- NOTE | ~2023-11-11 | US_ITS ---
EXAMINATION: US arterial ankle brachial ind DATE: 11/11/2023 10:49 INDICATION: Right lower limb pain TECHNIQUE: Segmental pressures and plethysmographic and Doppler waveforms of the brachial and lower e xtremity arteries were obtained. COMPARISON: None. FINDINGS: Right and left brachial artery pressures of 137 mm Hg and 137 mm Hg, respectively, are concordant (no rmal difference <= 30 mmHg). The right ankle-brachial index (CHRISTIANO) is 1.42 (normal >= 0.9-1.0). The right great toe-brachial index (TBI) is 1.09 (normal >= 0.65). Arterial Doppler waveforms are triphasic with brisk systolic upstroke s at both right posterior tibial and dorsalis pedis arteries. The left CHRISTIANO is 1.36. The left TBI is 0.97. Arterial Doppler waveforms are triphasic with brisk systo lic upstrokes at both left posterior tibial and dorsalis pedis arteries. IMPRESSION: 1. No significant arterial occlusive disease with normal bilateral ABIs and TBIs. Reviewed, dictated and finalized at location B. IMPRESSION: 1. No significant arterial occlusive disease with normal bilateral ABIs and TBI s.
== END 2023-11-11 10:04 | disposition home or self-care (01) ==
PROVIDERS: PCP Internal Medicine; Visit Provider Internal Medicine
DX: M79.604 Pain in right leg (principal); M79.605 Pain in left leg; M25.551 Pain in right hip
CPT/HCPCS: 73521; 93922

== ENCOUNTER 2024-02-11 14:39 | Outpatient (CLI) | payer BC, SELFPAY ==
--- NOTE | ~2024-02-11 | MR_ITS ---
EXAMINATION: MR pelvis wo con DATE: 02/11/2024 16:00 INDICATION: Left hip pain TECHNIQUE: 1. Magnetic resonance imaging (MRI) of the pelvis was performed without intravenous contrast. Sequenc es included axial, sagittal and coronal T1-weighted FSE, axial and coronal PD-weighted FS FSE and sag ittal T2-weighted FS FSE. 2. MRI of the left hip was performed without intravenous contrast. Sequences included small field of view of the left hip with axial PD-weighted FS FSE, sagittal PD-weighted FS FSE, coronal PD-weighted FS FSE and coronal T2 weighted FSE. Additional radial T1-weighted FGR oriented orthogonal to the le ft acetabular rim were obtained for evaluation of the labrum. COMPARISON: None. FINDINGS: Bones/labrum/cartilage: Alignment is normal. There is bilateral decreased anterosuperiorly femoral head/neck offset which can predispose towards cam-type femoral acetabular impingement. Low signal intensity bone island at the right femoral neck. No fracture, avascular necrosis or pathologic marrow replacing process. There is degenerative tearing of the left acetabular labrum most prominent anterosuperiorly where it has a mac erated appearance. There are small marginal osteophytes extending into the base of the posterior supe rior left acetabular labrum. There is mild partial-thickness cartilage loss with smooth chondral surf carissa and without degenerative subchondral changes along the posterior left hip. Fluid: Symmetric physiologic amount of fluid within both hip joints. No bursitis or other abnormal fluid col lections. Soft tissues: Normal and symmetric muscle bulk and signal in the pelvis and visualized proximal thighs. The iliopso as, gluteal and proximal hamstring tendons are normal. Limited evaluation of visceral organs of the p ignacia is unremarkable. No pathologically enlarged pelvic/inguinal lymphadenopathy. IMPRESSION: 1. Mild left hip osteoarthritis with anterosuperior predominant degenerative tearing of the left acet abular labrum. Reviewed, dictated and finalized at location A. IMPRESSION: 1. Mild left hip osteoarthritis with anterosuperior predominant degenerative te aring of the left acetabular labrum.
== END 2024-02-11 14:40 | disposition home or self-care (01) ==
PROVIDERS: PCP Internal Medicine; Visit Provider Internal Medicine
DX: M16.12 Unilateral primary osteoarthritis, left hip (principal); S73.102A Unspecified sprain of left hip, initial encounter; X58.XXXA Exposure to other specified factors, initial encounter; R10.31 Right lower quadrant pain; R10.32 Left lower quadrant pain
CPT/HCPCS: 72195; 73721

== ENCOUNTER 2024-03-04 12:42 | Outpatient (CLI) | payer BC, SELFPAY ==
--- NOTE | 2024-03-04 13:00 | ECG_ITS ---
Test Date: 2024-03-04 13:02:37 Measurements Intervals [place] Rate: 66 P: 37 NV: 192 QRS: 18 QRSD: 103 T: 15 QT: 382 QTc: 402 Interpretive Statements SINUS RHYTHM WARNING: DATA QUALITY MAY AFFECT INTERPRETATION No previous ECG available for comparison Electronically Signed On 03-04-2024 13:07:04 CDT by Devika Ovalle M.D.
== END 2024-03-04 12:43 | disposition home or self-care (01) ==
LOC: ANHSURGERY 12:48
PROVIDERS: PCP Internal Medicine; Visit Provider Surgery
DX: Z01.810 Encounter for preprocedural cardiovascular examination (principal); I10 Essential (primary) hypertension
CPT/HCPCS: 93005

== ENCOUNTER 2024-03-09 00:16 | Day surgery (SDC) | payer BC, SELFPAY ==
[2024-02-28 15:51] VITALS: BMI 29.8
--- NOTE | 2024-02-28 16:07 | SUR.PREOP ---
Report to the Outpatient Waiting Room, entrance under the green pavilion located off [facility], at time 1030 on date 03/09/24. Planned Procedure Time: 1230.? Time changes happen often and if your time is changed the preop area will call you the afternoon before. - You and your visitor will be asked to self-screen and do not enter if you have any COVID symptoms. Please call surgeon if you need to reschedule. - A mask is optional within the hospital at this time. Patients may have clear liquids (water, carbonated beverages, clear teas, apple juice) until 3 hours prior to surgery with a maximum of 20 ounces. - No food from midnight until time of surgery and no smoking - Infants may have breast milk until 4 hours before surgery, formula 6 hours prior to surgery. - Children will be allowed to drink immediately following surgery.? If applicable, please bring a bottle or sippy cup to assist with drinking. Juice, water, soda, and popsicles are readily available.? For infants on formula, please bring formula the day of surgery.? Pacifiers are allowed. Take only the following medications with a SIP of water on the morning of surgery: carvedilol, trintellix DO NOT STOP ANY OF YOUR OTHER PRESCRIPTION MEDICATIONS PRIOR TO SURGERY EXCEPT THE FOLLOWING Medications to discontinue per physician ___check with dr. welsh on aspirin if needed to stop Date to take last dose Please no make-up, nail greek, hairspray, perfume, deodorant, or body powder the day of surgery.? No jewelry (including any body piercings) or valuables the day of surgery, leave them at home.? Please take a shower or bath the night before, or the morning of, surgery with an antibacterial soap.? Wear comfortable, loose fitting clothing.? Children are encouraged to wear pajamas. - Jewelry must be removed prior to entering the operating room.? Rings and piercings that are not removed may be cut off. - The hospital will not accept responsibility for valuables.? - Please leave all valuables, including medications, at home the day of surgery. If you are going home after surgery, a licensed driver lifter of sanitation truck must drive you home.? - NO public transportation without another adult if you receive anesthesia. - We recommend that an adult stay with you for 24 hours following discharge. - We also recommend that you do not drive, make important decision, drink alcoholic beverages, or take any drugs that were not prescribed by your health care provider for at least 24 hours after your discharge time. For Pediatric surgeries, we recommend two adults accompany the child home. Follow any additional instructions given to you from your surgeon. Telephone instructions given to ___patient___and asked if any additional questions and then verbalized understanding. Patient advised to call surgeon office or pre surgery nurse liaison [phone] if any additional questions.
[2024-03-09] VITALS (8 sets, daily range): BP systolic 133–162; BP diastolic 86–95; PULSE 73–91; RESP 13–18; TEMP 36.6–36.8; O2SAT 97–100
[2024-03-09] MEDS: LACTATED RINGERS 1,000 ML 30 ML IV CONT (08:55)
--- NOTE | 2024-03-09 09:06 | WPDHPUPDATE1 ---
History and Physical Update Update Date/Time: 03/09/24 09:06 History and Physical has been reviewed, including an updated exam of the patient. There are NO changes in the patient's condition. Risks, benefits, and alternatives have been discussed and questions answered. Patient agrees to proceed with procedure.
--- NOTE | 2024-03-09 09:42 | WPDANESEPPF ---
Anes - Initial Pre Proc Eval Procedure: Operation Date: 03/09/24 10:30 Proposed Procedures p Pilonidal Cystectomy - Josiah Bowden MD Date/Time: 03/09/24 09:42 Surgeon: Josiah Bowden MD Pre Op Diagnosis: Chr Pilonidal Cyst Patient Data Age: 54 Gender: M Height: 1.93 m Weight: 112.6 kg Last Vital Signs Temp 97.8 F 03/09/24 08:46 Pulse 73 03/09/24 08:46 Resp 18 03/09/24 08:46 BP 133/86 03/09/24 08:46 Pulse Ox 98 03/09/24 08:46 O2 Del Method Room Air 03/09/24 08:46 Allergies Allergy/AdvReac Type Severity Reaction Status Date / Time No Known Allergies Allergy Verified 03/09/24 08:57 Home Medications Medication Instructions Recorded Confirmed Type aspirin 325 mg tablet 325 mg PO DAILY 10/11/22 03/09/24 History carvedilol 12.5 mg tablet 12.5 mg PO Q12H #180 tabs 08/19/23 03/09/24 Rx clonazepam 1 mg tablet (Klonopin) 1 mg PO DAILY #90 tabs 11/20/23 03/09/24 Rx fenofibrate 54 mg tablet 54 mg PO DAILY #90 tabs 11/20/23 03/09/24 Rx lisinopril 20 mg tablet 20 mg PO DAILY #90 tabs 11/20/23 03/09/24 Rx simvastatin 20 mg tablet 20 mg PO DAILY #90 tabs 11/20/23 03/09/24 Rx omeprazole 40 mg capsule,delayed 40 mg PO DAILY 02/28/24 03/09/24 History release vortioxetine 20 mg tablet 20 mg PO DAILY 02/28/24 03/09/24 History (Trintellix) Patient hx anesthesia problems: none Family hx anesthesia problems: none Results Review: All pre-operative results and documents have been reviewed as part of the pre-operative evaluation. [facility] Past Medical History Medical History Anxiety disorder, unspecified Essential (primary) hypertension History of pulmonary embolism Pure hypercholesterolemia, unspecified Surgical History Surgical History Hx of umbilical hernia repair Open umbilical hernia repair on 10/17/22. Family History Family History Father Cerebrovascular accident Patient's father is Family history of aortic aneurysm Mother Patient's mother is Sibling Hypertension Social History Social History Smoking packs per day: 0.5 Smoking cigarettes per day: 10.0 Years smoked: 35 Smoking pack-years: 17.50 Smoking status: Former smoker Tobacco type: cigarettes Second hand tobacco smoke exposure: No Smoking end date: 05/20/10 Alcohol intake: current Drinks per week: 6 Substance use: never Substance use type: does not use Do You Feel Safe in your Home?: Yes Lack of Transportation: No Lack of Food: Never True Current Housing: I Have Housing Concerned About Future Housing: No Difficulty Paying Gas/Electric Bills: No Difficulty Paying for Meds: No Currently Unemployed: No Education: Bachelor's Degree Difficulty w/ Childcare or Family Care: No Living arrangements: with family Occupation/Education: occupation 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 HTN, hyperlipidemia, smoker 1pack/week, suspect CEZAR pt prev uses CPAP on his own for snoring, no longer uses. Hypercoagulable state in the past w PE/DVT, pt w factor 5 leiden def, apparently heterozygote, only on full dose ASA.
[2024-03-09] MEDS: ceFAZolin 2 GM/D5W 50 ML 2 GM/50 ML BAG IVPB (10:24)
[2024-03-09] MEDS: LIDO 1%/EPINEPHRINE 1:100,000 50 ML VIAL 30 ML INFILTRATE (11:34)
--- NOTE | 2024-03-09 12:20 | W.PM.PROC2 ---
Procedure Note - Detailed Date of Procedure 03/09/24 Pre-op Diagnosis Chr Pilonidal Cyst Post-op Diagnosis Same Procedure Performed Extensive pilonidal cystectomy Surgeon Josiah Bowden MD Anesthesia General Indications Patient is a 53-year-old gentleman who has had a prior pilonidal abscess which was drained. The abscess resolved he has continued to have problems with a pilonidal cyst with formation of a draining sinus tract to the upper midline of the gluteal cleft. He presents now for elective pilonidal cystectomy and excision of the sinus tract. Findings Patient pilonidal cystic disease of the upper 1/2 of the midline gluteal cleft. The single draining sinus tract extended about 2cm above the upper portion of the cleft in the midline. No active abscess in the subcutaneous tissues was noted. Description of Procedure After informed consent was obtained patient brought to the operating room where he was placed under general endotracheal anesthesia and then turned into the prone position on the operating table. Care was taken to make sure all the pressure points well padded. A time-out was then performed and the patient was identified the procedure to be performed was stated. He was given perioperative IV antibiotics. The area the lower back and upper midline gluteal cleft was then prepped and draped usual sterile fashion. I then started by making a elongated elliptical incision to incorporate the sinus tract opening and the upper 1/2 of the upper midline gluteal cleft. Dissection was initially carried down through the dermis skin with a scalpel and then electrocautery was used to completely excise out the ellipse of skin and the underlying subcutaneous tissue containing the whole cyst wall and chronic inflammatory tissue. The subcutaneous tissue was sized all the way down to the presacral fascia. The specimen was passed off table sent to pathology for examination. Electrocautery was then used to achieve hemostasis in the wound. The wound was then irrigated sterile saline solution. I then injected 1% lidocaine mixed with 0.5% Marcaine in a 50 50 mixture cement epinephrine in the presacral fascia and subcutaneous tissues around the incision. The wound was then closed in multiple layers of interrupted 0 Vicryl suture, followed by layers of 2-0 Vicryl suture, and then layers of interrupted 3-0 Vicryl sutures to close the subcutaneous tissues and close all the space. Lastly interrupted 3-0 nylon sutures were placed in a vertical mattress fashion to approximate the skin edges. Incision was then cleaned and then antibiotic ointment and a sterile dressing was applied. There was no significant tension on the closure. The patient tolerated the procedure well no complications. All sponges, needles, and instrument counts were correct at the end procedure. EBL was _50__cc. The patient was awakened and taken to recovery in stable and satisfactory condition. Implants None Estimated Blood Loss 50 Drains No Packing No Pathology Yes (Pilonidal cyst and sinus tract sent to pathology) Complications No immediate complications Condition Stable Disposition PACU [facility] Billing Surgery - Charge Forward: Surgery Billing
== END 2024-03-09 13:42 | disposition home or self-care (01) ==
PROVIDERS: PCP Internal Medicine; Visit Provider Surgery
PROC: (CPT 11771; principal; 2024-03-09 10:30)
DX: L05.91 Pilonidal cyst without abscess (principal); I10 Essential (primary) hypertension; F41.9 Anxiety disorder, unspecified; E78.00 Pure hypercholesterolemia, unspecified; Z79.82 Long term (current) use of aspirin; Z98.890 Other specified postprocedural states; Z87.891 Personal history of nicotine dependence; Z86.711 Personal history of pulmonary embolism; Z82.49 Family history of ischemic heart disease and other diseases of the circulatory system
CPT/HCPCS: 11771; 88305; A9270; J0690; J1100; J1885; J2003; J2004; J2250; J2405; J2704; J3010; J7120

== ENCOUNTER 2024-03-17 08:59 | Outpatient (CLI) | payer BC, SELFPAY ==
--- NOTE | 2024-03-17 09:20 | NEURO_ITS ---
Impression: # Complains of numbness of feet. Not diabetic. # Sensory neuropathy # Normal needle/EMG exam. # Clinical correlation recommended. Nerve Conduction Studies Anti Sensory Summary Table Stim Site NR Peak (ms) P-T Amp (?V) Site1 Site2 Delta-P (ms) Dist (cm) Per (m/s) Left Sup Fibular Anti Sensory (Ant Lat Mall) NO RESPONSE 14 cm NR 14 cm Ant Lat Mall 16.0 Right Sup Fibular Anti Sensory (Ant Lat Mall) NO RESPONSE 14 cm NR 14 cm Ant Lat Mall 16.0 Left Sural Anti Sensory (Lat Mall) NO RESPONSE Calf NR Calf Lat Mall 16.0 Right Sural Anti Sensory (Lat Mall) NO RESPONSE Calf NR Calf Lat Mall 16.0 Motor Summary Table Stim Site NR Onset (ms) O-P Amp (mV) Site1 Site2 Delta-0 (ms) Dist (cm) Per (m/s) Left Peroneal Motor (Vastus Med) Ankle 4.4 3.9 Popit Ankle 10.1 45.0 45 Popit 14.5 3.4 Right Peroneal Motor (Vastus Med) Ankle 4.1 2.5 Popit Ankle 9.7 43.0 44 Popit 13.8 2.2 Left Tibial Motor (Abd Teresa Brev) Ankle 4.2 1.5 Knee Ankle 11.9 45.0 38 Knee 16.1 1.1 Right Tibial Motor (Abd Teresa Brev) Ankle 4.5 5.2 Knee Ankle 11.5 44.0 38 Knee 16.0 2.4 F Wave Studies NR F-Lat (ms) L-R F-Lat (ms) Left Peroneal (Mrkrs) (EDB) 60.40 1.57 Right Peroneal (Mrkrs) (EDB) 58.83 1.57 Left Tibial (Mrkrs) (Abd Hallucis) 60.82 1.64 Right Tibial (Mrkrs) (Abd Hallucis) 59.19 1.64 EMG Side Muscle Nerve Root Ins Act Fibs Amp Dur Recrt Comment Right AntTibialis Dp Br Fibular L4-5 Nml Nml Nml Nml Nml Right Gastroc Tibial S1-2 Nml Nml Nml Nml Nml Right Fibularis Long Sup Br Fibular L5-S1 Nml Nml Nml Nml Nml Right Flex Dig Long Tibial L5-S2 Nml Nml Nml Nml Nml Right Ext Dig Brev Dp Br Fibular L5, S1 Nml Nml Nml Nml Nml Right QuadratusFem QuadFemoris L4-5, S1 Nml Nml Nml Nml Nml Left AntTibialis Dp Br Fibular L4-5 Nml Nml Nml Nml Nml Left Gastroc Tibial S1-2 Nml Nml Nml Nml Nml Left Fibularis Long Sup Br Fibular L5-S1 Nml Nml Nml Nml Nml Left Flex Dig Long Tibial L5-S2 Nml Nml Nml Nml Nml Left Ext Dig Brev Dp Br Fibular L5, S1 Nml Nml Nml Nml Nml Left QuadratusFem QuadFemoris L4-5, S1 Nml Nml Nml Nml Nml MTDD
== END 2024-03-17 09:00 | disposition home or self-care (01) ==
PROVIDERS: PCP Internal Medicine; Visit Provider Internal Medicine
DX: R20.0 Anesthesia of skin (principal); G62.9 Polyneuropathy, unspecified
CPT/HCPCS: 95886; 95910

== ENCOUNTER 2024-09-30 08:14 | Outpatient (CLI) | payer BC, SELFPAY ==
--- OUTSIDE RECORDS SUMMARY | 2024-09-30 08:25 | XMS_ITS ---
Author Organization [employer] [facility] Address [address] [place] [address] Care Team Providers Care Rn Review Name Role Phone Lis Polk Primary Care Provider REASON FOR VISIT Lab Review/TEXT PLEASE Vital Signs Height 74 in 06/29/2024 Weight 250 lbs 06/29/2024 BMI 32.09 kg/m2 06/29/2024 Encounters Encounter Location Date Provider Diagnosis [facility], [facility] - Lis Polk [address] [place] [address] 06/29/2024 Lis Polk Plan Of Treatment No Information Progress Notes * Soy FRENCHDOB:[birth year] (54 yo M)Acc No.[id number]:06/29/2024 Progress Notes Patient: Soy ROWLAND Provider: Socrates Polk MD :1970 A ge:54 Y S ex:Male Date:06/29/2024 Address:[facility] [address] , [facility] Subjective: * Chief Complaints: * 1 . Lab Review/TEXT PLEASE. * Medical History: Objective: * Vitals: H t: 74, Wt: 250, BMI: 32.09. Assessment: Plan: * Treatment: * Billing Information: * Visit Code: * Procedure Codes: * Electronic signature of Horacio Polk MD on 09/30/2024 at 08:25 AM CDT Sign off status: Pending * Provider: Socrates Polk MD Date: 0 06/29/2024 Generated for Printi ng/Faxing/eTransmitting on: 0 09/30/2024 08:25 AM CDT
--- OUTSIDE RECORDS SUMMARY | 2024-09-30 08:25 | XMS_ITS | Clinical Summary ---
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 Active clonazePAM (KlonoPIN) 1 mg tablet Take 1 mg by mouth. Active fenofibrate (LOFIBRA) 54 mg Take 54 mg by mouth. Active losartan (COZAAR) 100 mg tablet Take 100 mg by mouth. Active mirtazapine (REMERON) 15 mg tablet Take 15 mg by mouth daily at bedtime. Active PARoxetine HCl (PAXIL) 20 mg tablet 08/28/2020 Active rivaroxaban (XARELTO) 15 mg Tablet 15 mg. Active simvastatin (ZOCOR) 20 mg tablet Take 20 mg by mouth daily at bedtime. Active varenicline (Chantix Starting Month Box) 0.5 mg (11)- 1 mg (42) tablets STARTER dose pack 08/29/2020 Active HYDROcodone-acet aminophen (NORCO) 10-325 mg Tablet Take by mouth. 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 Gender Identity Not on file Sexual Orientation Not on file Last Filed Vital Signs Vital Sign Reading Time Taken Comments Blood Pressure 133/81 10/21/2020 9:18 AM CDT Pulse 84 10/21/2020 9:18 AM CDT Temperature 36.7 C (98 F) 10/21/2020 9:18 AM CDT Respiratory Rate - - Oxygen Saturation 98% 10/21/2020 9:18 AM CDT Inhaled Oxygen Concentration - - Weight 113.1 kg (249 lb 4.8 oz) 10/21/2020 9:18 AM CDT Height 193 cm (6' 4) 10/21/2020 9:18 AM CDT Body Mass Index 30.35 10/21/2020 9:18 AM CDT Plan of Treatment Health Maintenance Due Date Last Done Comments DTAP/TDAP/TD VACCINES (1 - Tdap) 1990 HEPATITIS B VACCINES (1 of 3 - 19+ 3-dose series) 02/17 COLORECTAL SCREENING 2016 Colorectal Cancer Screening 2016 FIT-DNA Q 3 years 2016 FIT/FOBT Q 1 year 2016 Flex Sig/CT Colonography Q 5 years 2016 ZOSTER VACCINE (1 of 2) 2021 INFLUENZA VACCINE (#1) 2023 Care Teams Propeller Driven Airplane Mechanic Relationship Specialty Start Date End Date Cam Joseph DO [address] [facility] [address] [place] [address] PCP - General Internal Medicine 09/22/20
--- OUTSIDE RECORDS SUMMARY | 2024-09-30 08:25 | XMS_ITS ---
Author Name Auto Generated, Auto Generated Organization [facility] [facility] Address [address] [place] [address] Phone [phone] Care Team Providers Care Gas Plumber Name Role Phone Angelica Fowler Unavailable Bryson Samuels I Unavailable [phone] Functional Status No Results Mental Status No Results Allergies and Intolerances Name Onset Date Reaction Severity No Known Allergies (Allergy) [place] Jul 05 21:56:00 2024 Encounters Program Name Primary Diagnosis Admission Date/Time Dis charge Date/Time Home Care SatJul 08 19:00 :00 2024Jul 14 18:59:59 2024 Medications Medication Directions Start Date End Date acetaminophen 500 mg tablet 2 tabs TABLE T Oral PRN Every 8 Hours as needed for pain. SatJul 09:00:00 2024Jul 14:00:00 2024 Eliquis 2.5 mg tablet 1 tab TABLET Oral 2 Times Daily SatJul 09:00:00 2024Jul 14:00:00 2024 carvediloL 12.5 mg tablet 1 tab TABLET O ral 2 Times Daily SatJul 09:00:00 2024Jul 14:00:00 2024 clonazePAM 1 mg tablet 1-2 tabs TABLET O ral PRN Every 12 Hours as needed for anxiety SatJul 09:00:00 2024Jul 14:00:00 2024 Valium 5 mg tablet 1 tab TABLET Oral VA N Every 8 Hours as needed for muscle spasms SatJul 09 01:00:00 2024Jul 14 01:00:00 EST 2024 BenadryL 25 mg capsule 1 cap CAPSULE Ora l Hour Of Sleep Isabel Feb 20 01:00:00 EST 2024 Feb 25 01:00:00 EST 2024 fenofibrate 54 mg tablet 1 tab TABLET Or al Every Morning Isabel Feb 20 01:00:00 EST 2024 Feb 25 01:00:00 EST 2024 Mcgrath 5 mg-325 mg tablet 1 tab TABLET Or al PRN Every 4 Hours as needed for pain Isabel Feb 20 01:00:00 EST 2024 Feb 25 01:00:00 EST 2024 lisinopriL 20 mg tablet 1 tab TABLET Ora l Every Morning Isabel Feb 20 01:00:00 EST 2024 Feb 25 01:00:00 EST 2024 melatonin 10 mg tablet 1 tab TABLET Oral Hour Of Sleep Isabel Feb 20 01:00:00 EST 2024 Feb 25 01:00:00 EST 2024 meloxicam 7.5 mg tablet 1 tab TABLET Ora l 2 Times Daily for 14 Days Isabel Feb 20 01:00:00 EST 2024 Feb 25 01:00:00 EST 2024 Remeron 15 mg tablet 1 tab TABLET Oral H our Of Sleep Isabel Feb 20 01:00:00 EST 2024 Feb 25 01:00:00 EST 2024 PriLOSEC 40 mg capsule,delayed release 1 cap CAPSULE,DELAYED RELEASE (ENTERIC COATED) Oral Every Morning Isabel Feb 20 01:00:00 EST 2024 Feb 25 01:00:00 EST 2024 Zofran 4 mg tablet 1 tab TABLET Oral VA N Every 6 Hours as needed for nausea/vomiting Isabel Feb 20 01:00:00 EST 2024e Feb 25 01:00:00 EST 2024 Lyrica 75 mg capsule 1 cap CAPSULE Oral 2 Times Daily for 14 Days Isabel Feb 20 01:00:00 EST 2024 Feb 25 01:00:00 EST 2024 Senna-S 8.6 mg-50 mg tablet 1-2 tabs TAB LET Oral 2 Times Daily Isabel Feb 20 01:00:00 EST 2024 Feb 25 01:00:00 EST 2024 simvastatin 20 mg tablet 1 tab TABLET Or al Every Morning Isabel Feb 20 01:00:00 EST 2024 Feb 25 01:00:00 2024 traMADoL 50 mg tablet 1 tab TABLET Oral PRN Every 8 Hours as needed for pain. SatJul 09 01:00:00 2024Jul 14 01:00:00 2024 Problems Active Concerns * Nicotine dependence, cigarettes, uncomplicated* Code: * Start Date: SatJul 09 00:00:00 2024 * End Date: * Text: * Other [place] [facility]current[facility] drug therapy* Code: * Start Date: SatJul 09 00:00:00 2024 * End Date: * Text: * prison (current) use of aspirin* Code: * Start Date: SatJul 09 00:00:00 2024 * End Date: * Text: * Other reduced mobility* Code: * Start Date: SatJul 09 00:00:00 2024 * End Date: * Text: * Personal history of other venous thrombosis and embolism* Code: * Start Date: SatJul 09 00:00:00 2024 * End Date: * Text: * Personal history of pulmonary embolism* Code: * Start Date: SatJul 09 00:00:00 2024 * End Date: * Text: * Hyperlipidemia, unspecified* Code: * Start Date: SatJul 09 00:00:00 2024 * End Date: * Text: * Anxiety disorder, unspecified* Code: * Start Date: SatJul 09 00:00:00 2024 * End Date: * Text: * Essential (primary) hypertension* Code: * Start Date: SatJul 09 00:00:00 2024 * End Date: * Text: * Strain of muscle, fascia and tendon of right hip, subsequent encounter* Code: * Start Date: SatJul 09 00:00:00 2024 * End Date: * Text: Resolved Concerns * Problem Other specified injury of muscle, fascia and tendon of unspecified hip, subsequent encounter* Code: * Start Date: SatJul 07 00:00:00 2024 * End Date: SatJul 09 00:00:00 2024 Reason for Referral
--- OUTSIDE RECORDS SUMMARY | 2024-09-30 08:25 | XMS_ITS | Patient Health Record ---
Author [place] [facility] [place] [facility] Address [address] [facility] [address] [place] [address] Care Team Providers Care Office Rental Clerk Name Role Phone Bryson Samuels DO Primary Care Provider Rodney Cedeno Unavailable [phone] Migration, Provider Unavailable Unavailable Allergies No Known Allergies Results Component Value Reference Range Notes UDT Reviewed date:10/31/2023 05:13:27 PM Interpretation:Normal Performing Lab: Notes/Report: Normal THC neg 0 - 50 ng/ml Cocaine neg Amphetamine neg Buprenorphine (BUP) neg Secobarbital (Bar) neg Oxazepam (BZO) neg 6-krprgrlyyx-2,5-ueatxorj-6,3-diphenylpyrrolidine (FLOYD P) neg Methamphetamine (MET) neg Methylenedioxymethamphetamine (MDMA) neg Morphine (MOP 300/[id number]) neg Methadone (MTD) neg Phencyclidine (PCP) neg Nortriptyline (TCA) neg x neg UDT Reviewed date:11/28/2023 04:14:38 PM Interpretation: Performing Lab: Notes/Report: THC N 0 - 50 ng/ml Cocaine N 0 - 300 ng/ml Amphetamine N 0 - 1000 ng/ml Buprenorphine (BUP) N 0 - 10 ng/ml Secobarbital (Bar) N 0 - 300 ng/ml Oxazepam (BZO) N 0 - 300 ng/ml 2-obcxbzrftt-1,3-ioeufxqv-3,3-diphenylpyrrolidine (FLOYD P) N 0 - 300 ng/ml Methamphetamine (MET) N 0 - 1000 ng/ml Methylenedioxymethamphetamine (MDMA) N 0 - 500 ng/ml Morphine (MOP 300/[id number]) N 0 - 300 ng/ml Methadone (MTD) N 0 - 300 ng/ml Phencyclidine (PCP) N 0 - 25 ng/ml Nortriptyline (TCA) N 0 - 1000 ng/ml x N 0 - 300 ng/ml Reason For Referral No Information Medications Medication SIG (Take, Route, Fr equency, Duration) Notes Start Date End Date Status clonazePAM 1 MG 1 tablet Oral three times a day for 30 days 02/03/2024 Active Mirtazapine 15 MG 1 tablet at bedtime Oral Once a day for 30 days Active Simvastatin 20 MG TAKE 1 TABLET BY CHARMAINE TH DAILY Oral for 90 Days Active Trintellix 20 MG 1 tablet Orally Once a day for 30 days Active Fenofibrate 54 MG TAKE 1 TABLET BY CHARMAINE TH EVERY DAY Oral for 90 Days Active Omeprazole 40 MG TAKE 1 CAPSULE BY MO UTH EVERY DAY Oral for 90 Days Active Lisinopril 20 MG TAKE 1 TABLET BY CHARMAINE TH DAILY Oral for 90 Days Active Social History Tobacco Use: Social History Observation Description Date Details (start date - stop date) Former Smoker NA - NA Sex Assigned At : Social History Observation Description Sex Assigned At Male Tobacco Control (Standard) Question Answer Notes Tobacco use: Former smoker AUDIT-C (Standard) Question Answer Notes Did you have a drink containing alcohol in the p ast year? Yes How often did you have six o r more drinks on one occasion in the past year? Never (0 point) Problems Problem Type SNOMED Code ICD Code Onset Dates Problem Status W/U Status Risk Notes Problem Alcohol dependence (94707551) Alcohol dependence, uncomplicated (F10.20) Active confirmed Problem Severe recurrent major depression without psychotic features (36526616) Major depressive disorder, recurrent severe without psychotic features (F33.2) Active confirmed Problem Generalized anxiety disorder (00299499) Generalized anxiety disorder (F41.1) Active confirmed Vital Signs Heart Rate 68 /min 02/03/2024 Height-cm 193.04 cm 02/03/2024 Blood pressure diastolic 78 mm Hg 02/03/2024 Weight-kg 113.58 kg 02/03/2024 Height 76.00 in 02/03/2024 Blood pressure systolic 133 mm Hg 02/03/2024 Weight 250.4 lbs 02/03/2024 BMI 30.48 kg/m2 02/03/2024 Encounters Encounter Location Date Provider Diagnosis [facility] [address] [facility] [address] [place] [address] 10/03/2023 Rodney Balbir Alcohol dependence, uncomplicated F10.20 ; Major depressive disorder, recurrent severe without psychotic features F33.2 ; Hyperglycemia, unspecified R73.9 and Generalized anxiety disorder F41.[address] [facility] [address] [place] [address] 10/31/2023 Rodney Balbir [facility] Z79.899 ; Major depressive disorder, recurrent severe without psychotic features F33.2 ; Generalized anxiety disorder F41.1 and Alcohol dependence, uncomplicated F10.20 [place] [id number] [facility] [address] [facility] [address] [place] [address] 11/28/2023 Rodney Balbir Major depressive disorder, recurrent severe without psychotic features F33.2 ; 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 ; Generalized anxiety disorder F41.1 and Alcohol dependence, uncomplicated F10.[address] [address] 02/03/2024 Rodney Balbir Major depressive disorder, recurrent severe without psychotic features F33.2 ; [facility] drug therapy Z79.899 ; Generalized anxiety disorder F41.1 and Alcohol dependence, uncomplicated F10.[address] [address] 10/05/2023 Provider Migration [address] [address] 10/06/2023 Provider Migration [address] [address] 03/25/2024 Rodney Balbir [place] [address] [address] 03/25/2024 Rodney Balbir Assessments Encounter Date Diagnosis (ICD Code) Assessment Notes Treatment Notes Treatment Clinical Notes Section Notes 10/03/2023 Alcohol dependence, uncomplicated (ICD-10 - F10.20) 10/03/2023 Major depressive disorder, recurrent severe without psychotic features (ICD-10 - F33.2) 10/03/2023 Generalized anxiety disorder (ICD-10 - F41.1) 10/03/2023 Hyperglycemia, unspecified (ICD-10 - R73.9) 10/31/2023 Major depressive disorder, recurrent severe without psychotic features (ICD-10 - F33.2) Electronic Prior Authorization was requested for Trintellix 20 MG Tablet. Provider can order medication once approval received. Anxiety and Depression - Assessment: Patient reports continued anxiety and depression despite current medications (clonazepam 1 mg TID, vilazodone 40 mg daily). - Plan: - Discontinue vilazodone by tapering down to 20 mg for one week and then stopping. - Initiate Trintellix, starting with 10 mg for one week and then increasing to 20 mg. - Complete prior authorization for Trintellix. - Schedule a four-week follow-up appointment to assess response to the new medication. Insomnia - Assessment: Patient reports difficulty falling back asleep due to racing thoughts. - Plan: - Monitor sleep patterns and discuss potential interventions at the next follow-up appointment. Sexual Dysfunction - Assessment: Patient reports sexual side effects with vilazodone and previous use of Paxil. - Plan: - Discontinue vilazodone as mentioned above and switch to Trintellix, which may help reverse SSRI-induced sexual dysfunction. - Monitor for improvement in sexual side effects at the next follow-up appointment. Alcohol Use - Assessment: Patient reports consuming one to two alcoholic drinks daily after work. - Plan: - Encourage moderation in alcohol consumption and discuss potential impact on mental health at the next follow-up appointment. Medication Management - Assessment: Patient is currently taking clonazepam, mirtazapine, Coreg 12.5, Vascepa 20 mg, and fenofibrate. - Plan: - Continue current medications, with the exception of vilazodone as mentioned above. - Monitor for any potential interactions or side effects at the next follow-up appointment. Follow-up Appointments - Assessment: Due to the patient's use of clonazepam, in-person appointments are required for monitoring purposes. - Plan: - Schedule a four-week follow-up appointment to assess the patient's response to Trintellix and overall mental health status. - Once the patient is more stable, consider extending the interval between appointments to two or three months, while still requiring in-person visits. 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 - Plan: - Discontinue vilazodone by tapering down to 20 mg for one week and then stopping. - Initiate Trintellix, starting with 10 mg for one week and then increasing to 20 mg. - Complete prior authorization for Trintellix. - Schedule a four-week follow-up appointment to assess response to the new medication. Insomnia - Assessment: Patient reports difficulty falling back asleep due to racing thoughts. - Plan: - Monitor sleep patterns and discuss potential interventions at the next follow-up appointment. Sexual Dysfunction - Assessment: Patient reports sexual side effects with vilazodone and previous use of Paxil. - Plan: - Discontinue vilazodone as mentioned above and switch to Trintellix, which may help reverse SSRI-induced sexual dysfunction. - Monitor for improvement in sexual side effects at the next follow-up appointment. Alcohol Use - Assessment: Patient reports consuming one to two alcoholic drinks daily after work. - Plan: - Encourage moderation in alcohol consumption and discuss potential impact on mental health at the next follow-up appointment. Medication Management - Assessment: Patient is currently taking clonazepam, mirtazapine, Coreg 12.5, Vascepa 20 mg, and fenofibrate. - Plan: - Continue current medications, with the exception of vilazodone as mentioned above. - Monitor for any potential interactions or side effects at the next follow-up appointment. Follow-up Appointments - Assessment: Due to the patient's use of clonazepam, in-person appointments are required for monitoring purposes. - Plan: - Schedule a four-week follow-up appointment to assess the patient's response to Trintellix and overall mental health status. - Once the patient is more stable, consider extending the interval between appointments to two or three months, while still requiring in-person visits. 11/28/2023 Major depressive disorder, recurrent severe without psychotic features (ICD-10 - F33.2) Electronic Prior Authorization was requested for Trintellix 20 MG Tablet. Provider can order medication once approval received. Depression - Plan: - Continue Trintellix 20 mg daily for depression management. - Monitor for any side effects and report any new or worsening symptoms. Anxiety - Plan: - Continue mirtazapine for anxiety management. - Consider counseling or therapy for long-term anxiety management and coping skills development. - Discuss with primary care physician about the possibility of adding propranolol or metoprolol for anxiety and blood pressure management. Insomnia - Plan: - Continue Clonazepam at the current dose for now, with a plan to gradually reduce the dose by 0.5 mg every two months. - Consider erjm-goe-zuoxnku sleep aid, such as melatonin, as an alternative for sleep management. - Discuss with primary care physician about the possibility of prescribing hydroxyzine for anxiety and sleep. Sexual Side Effects - Plan: - Discuss with primary care physician about the possibility of prescribing sildenafil (generic for Viagra) for sexual side effects management. - Monitor for any side effects and report any new or worsening symptoms. Hypertension - Plan: - Continue current blood pressure medications as prescribed by primary care physician. - Discuss with primary care physician about the possibility of adding propranolol or metoprolol for blood pressure and anxiety management. - Monitor blood pressure regularly and report any significant changes to primary care physician. Follow-up - Plan: - Schedule a follow-up appointment in two months to assess progress and adjust treatment plan as needed. 02/03/2024 Major depressive disorder, recurrent severe without psychotic features (ICD-10 - F33.2) Electronic Prior Authorization was requested for Trintellix 20 MG Tablet. Provider can order medication once approval received. Depression - Assessment: The patient reports that his depression is still present but manageable. He is able to function fairly well in his day-to-day routine and work. - Plan: - Continue current medications, Trintellix 20 mg once daily and mirtazapine 15 mg once daily. - Reassess in 3 months or sooner if the patient experiences any significant changes in symptoms. Anxiety - Assessment: The patient experiences excessive worrying and anticipatory anxiety before social events but is able to enjoy himself once he arrives. 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 - Plan: - Continue clonazepam 1 mg three times a day for anxiety management. - Encourage the patient to gradually increase exposure to situations that cause anxiety and consider seeking therapy for additional support. - Reassess in 3 months or sooner if needed. Torn Cartilage - Assessment: The patient has a torn cartilage and is postponing surgery until winter. This limits his ability to engage in physical activities such as walking and squatting. - Plan: - Encourage the patient to discuss the surgery and recovery plan with his orthopedic surgeon. - Recommend exploring alternative low-impact exercises that can be done safely while waiting for surgery. Sexual Side Effects - Assessment: The patient reports that the sexual side effects from his medications are manageable but is interested in obtaining sildenafil (Viagra) for additional support. He mentions that Trintellix (centelixis) is better than other medications in terms of side effects. - Plan: - Send a note to Dr. Nuñez, the patient's primary care physician, to discuss the possibility of prescribing sildenafil. - The patient will follow up with Dr. Nuñez in a couple of months. Alcohol Intake - Assessment: The patient reports that his alcohol intake is better and limited to weekends. He states it's controllable. - Plan: - Encourage the patient to continue monitoring his alcohol intake and to seek support if needed. Follow-up - Plan: - Schedule a 3-month follow-up appointment to reassess the patient's symptoms and treatment plan. - The patient is advised to contact the clinic if any significant changes in symptoms occur before the scheduled follow-up. 02/03/2024 [facility] drug [facility] (ICD-10 - Z79.899) Depression - Assessment: The patient reports that his depression is still present but manageable. He is able to function fairly well in his day-to-day routine and work. - Plan: - Continue current medications, Trintellix 20 mg once daily and mirtazapine 15 mg once daily. - Reassess in 3 months or sooner if the patient experiences any significant changes in symptoms. Anxiety - Assessment: The patient experiences excessive worrying and anticipatory anxiety before social events but is able to enjoy himself once he arrives. 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 - Plan: - Continue clonazepam 1 mg three times a day for anxiety management. - Encourage the patient to gradually increase exposure to situations that cause anxiety and consider seeking therapy for additional support. - Reassess in 3 months or sooner if needed. Torn Cartilage - Assessment: The patient has a torn cartilage and is postponing surgery until winter. This limits his ability to engage in physical activities such as walking and squatting. - Plan: - Encourage the patient to discuss the surgery and recovery plan with his orthopedic surgeon. - Recommend exploring alternative low-impact exercises that can be done safely while waiting for surgery. Sexual Side Effects - Assessment: The patient reports that the sexual side effects from his medications are manageable but is interested in obtaining sildenafil (Viagra) for additional support. He mentions that Trintellix (centelixis) is better than other medications in terms of side effects. - Plan: - Send a note to Dr. Nuñez, the patient's primary care physician, to discuss the possibility of prescribing sildenafil. - The patient will follow up with Dr. Nuñez in a couple of months. Alcohol Intake - Assessment: The patient reports that his alcohol intake is better and limited to weekends. He states it's controllable. - Plan: - Encourage the patient to continue monitoring his alcohol intake and to seek support if needed. Follow-up - Plan: - Schedule a 3-month follow-up appointment to reassess the patient's symptoms and treatment plan. - The patient is advised to contact the clinic if any significant changes in symptoms occur before the scheduled follow-up. 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 - Monitor for any side effects and report any new or worsening symptoms. Anxiety - Plan: - Continue mirtazapine for anxiety management. - Consider counseling or therapy for long-term anxiety management and coping skills development. - Discuss with primary care physician about the possibility of adding propranolol or metoprolol for anxiety and blood pressure management. Insomnia - Plan: - Continue Clonazepam at the current dose for now, with a plan to gradually reduce the dose by 0.5 mg every two months. - Consider aeug-jgu-dnvihqr sleep aid, such as melatonin, as an alternative for sleep management. - Discuss with primary care physician about the possibility of prescribing hydroxyzine for anxiety and sleep. Sexual Side Effects - Plan: - Discuss with primary care physician about the possibility of prescribing sildenafil (generic for Viagra) for sexual side effects management. - Monitor for any side effects and report any new or worsening symptoms. Hypertension - Plan: - Continue current blood pressure medications as prescribed by primary care physician. - Discuss with primary care physician about the possibility of adding propranolol or metoprolol for blood pressure and anxiety management. - Monitor blood pressure regularly and report any significant changes to primary care physician. Follow-up - Plan: - Schedule a follow-up appointment in two months to assess progress and adjust treatment plan as needed. 10/31/2023 Generalized anxiety disorder (ICD-10 - F41.1) Anxiety and Depression - Assessment: Patient reports continued anxiety and depression despite current medications (clonazepam 1 mg TID, vilazodone 40 mg daily). - Plan: - Discontinue vilazodone by tapering down to 20 mg for one week and then stopping. - Initiate Trintellix, starting with 10 mg for one week and then increasing to 20 mg. - Complete prior authorization for Trintellix. - Schedule a four-week follow-up appointment to assess response to the new medication. Insomnia - Assessment: Patient reports difficulty falling back asleep due to racing thoughts. - Plan: - Monitor sleep patterns and discuss potential interventions at the next follow-up appointment. Sexual Dysfunction - Assessment: Patient reports sexual side effects with vilazodone and previous use of Paxil. - Plan: - Discontinue vilazodone as mentioned above and switch to Trintellix, which may help reverse SSRI-induced sexual dysfunction. - Monitor for improvement in sexual side effects at the next follow-up appointment. Alcohol Use - Assessment: Patient reports consuming one to two alcoholic drinks daily after work. - Plan: - Encourage moderation in alcohol consumption and discuss potential impact on mental health at the next follow-up appointment. Medication Management - Assessment: Patient is currently taking clonazepam, mirtazapine, Coreg 12.5, Vascepa 20 mg, and fenofibrate. - Plan: - Continue current medications, with the exception of vilazodone as mentioned above. - Monitor for any potential interactions or side effects at the next follow-up appointment. Follow-up Appointments - Assessment: Due to the patient's use of clonazepam, in-person appointments are required for monitoring purposes. - Plan: - Schedule a four-week follow-up appointment to assess the patient's response to Trintellix and overall mental health status. - Once the patient is more stable, consider extending the interval between appointments to two or three months, while still requiring in-person visits. 11/28/2023 Generalized anxiety disorder (ICD-10 - F41.1) Depression - Plan: - Continue Trintellix 20 mg daily for depression management. - Monitor for any side effects and report any new or worsening symptoms. Anxiety - Plan: - Continue mirtazapine for anxiety management. - Consider counseling or therapy for long-term anxiety management and coping skills development. - Discuss with primary care physician about the possibility of adding propranolol or metoprolol for anxiety and blood pressure management. Insomnia - Plan: - Continue Clonazepam at the current dose for now, with a plan to gradually reduce the dose by 0.5 mg every two months. - Consider tloe-fne-xucxhcz sleep aid, such as melatonin, as an alternative for sleep management. - Discuss with primary care physician about the possibility of prescribing hydroxyzine for anxiety and sleep. Sexual Side Effects - Plan: - Discuss with primary care physician about the possibility of prescribing sildenafil (generic for Viagra) for sexual side effects management. - Monitor for any side effects and report any new or worsening symptoms. Hypertension - Plan: - Continue current blood pressure medications as prescribed by primary care physician. - Discuss with primary care physician about the possibility of adding propranolol or metoprolol for blood pressure and anxiety management. - Monitor blood pressure regularly and report any significant changes to primary care physician. Follow-up - Plan: - Schedule a follow-up appointment in two months to assess progress and adjust treatment plan as needed. 10/31/2023 Alcohol dependence, uncomplicated (ICD-10 - F10.20) Anxiety and Depression - Assessment: Patient reports continued anxiety and depression despite current medications (clonazepam 1 mg TID, vilazodone 40 mg daily). - Plan: - Discontinue vilazodone by tapering down to 20 mg for one week and then stopping. - Initiate Trintellix, starting with 10 mg for one week and then increasing to 20 mg. - Complete prior authorization for Trintellix. - Schedule a four-week follow-up appointment to assess response to the new medication. Insomnia - Assessment: Patient reports difficulty falling back asleep due to racing thoughts. - Plan: - Monitor sleep patterns and discuss potential interventions at the next follow-up appointment. Sexual Dysfunction - Assessment: Patient reports sexual side effects with vilazodone and previous use of Paxil. - Plan: - Discontinue vilazodone as mentioned above and switch to Trintellix, which may help reverse SSRI-induced sexual dysfunction. - Monitor for improvement in sexual side effects at the next follow-up appointment. Alcohol Use - Assessment: Patient reports consuming one to two alcoholic drinks daily after work. - Plan: - Encourage moderation in alcohol consumption and discuss potential impact on mental health at the next follow-up appointment. Medication Management - Assessment: Patient is currently taking clonazepam, mirtazapine, Coreg 12.5, Vascepa 20 mg, and fenofibrate. - Plan: - Continue current medications, with the exception of vilazodone as mentioned above. - Monitor for any potential interactions or side effects at the next follow-up appointment. Follow-up Appointments - Assessment: Due to the patient's use of clonazepam, in-person appointments are required for monitoring purposes. - Plan: - Schedule a four-week follow-up appointment to assess the patient's response to Trintellix and overall mental health status. - Once the patient is more stable, consider extending the interval between appointments to two or three months, while still requiring in-person visits. 02/03/2024 Generalized anxiety disorder (ICD-10 - F41.1) Depression - Assessment: The patient reports that his depression is still present but manageable. He is able to function fairly well in his day-to-day routine and work. - Plan: - Continue current medications, Trintellix 20 mg once daily and mirtazapine 15 mg once daily. - Reassess in 3 months or sooner if the patient experiences any significant changes in symptoms. Anxiety - Assessment: The patient experiences excessive worrying and anticipatory anxiety before social events but is able to enjoy himself once he arrives. 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 - Plan: - Continue clonazepam 1 mg three times a day for anxiety management. - Encourage the patient to gradually increase exposure to situations that cause anxiety and consider seeking therapy for additional support. - Reassess in 3 months or sooner if needed. Torn Cartilage - Assessment: The patient has a torn cartilage and is postponing surgery until winter. This limits his ability to engage in physical activities such as walking and squatting. - Plan: - Encourage the patient to discuss the surgery and recovery plan with his orthopedic surgeon. - Recommend exploring alternative low-impact exercises that can be done safely while waiting for surgery. Sexual Side Effects - Assessment: The patient reports that the sexual side effects from his medications are manageable but is interested in obtaining sildenafil (Viagra) for additional support. He mentions that Trintellix (centelixis) is better than other medications in terms of side effects. - Plan: - Send a note to Dr. Nuñez, the patient's primary care physician, to discuss the possibility of prescribing sildenafil. - The patient will follow up with Dr. Nuñez in a couple of months. Alcohol Intake - Assessment: The patient reports that his alcohol intake is better and limited to weekends. He states it's controllable. - Plan: - Encourage the patient to continue monitoring his alcohol intake and to seek support if needed. Follow-up - Plan: - Schedule a 3-month follow-up appointment to reassess the patient's symptoms and treatment plan. - The patient is advised to contact the clinic if any significant changes in symptoms occur before the scheduled follow-up. 02/03/2024 Alcohol dependence, uncomplicated (ICD-10 - F10.20) Depression - Assessment: The patient reports that his depression is still present but manageable. He is able to function fairly well in his day-to-day routine and work. - Plan: - Continue current medications, Trintellix 20 mg once daily and mirtazapine 15 mg once daily. - Reassess in 3 months or sooner if the patient experiences any significant changes in symptoms. Anxiety - Assessment: The patient experiences excessive worrying and anticipatory anxiety before social events but is able to enjoy himself once he arrives. 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 - Plan: - Continue clonazepam 1 mg three times a day for anxiety management. - Encourage the patient to gradually increase exposure to situations that cause anxiety and consider seeking therapy for additional support. - Reassess in 3 months or sooner if needed. Torn Cartilage - Assessment: The patient has a torn cartilage and is postponing surgery until winter. This limits his ability to engage in physical activities such as walking and squatting. - Plan: - Encourage the patient to discuss the surgery and recovery plan with his orthopedic surgeon. - Recommend exploring alternative low-impact exercises that can be done safely while waiting for surgery. Sexual Side Effects - Assessment: The patient reports that the sexual side effects from his medications are manageable but is interested in obtaining sildenafil (Viagra) for additional support. He mentions that Trintellix (centelixis) is better than other medications in terms of side effects. - Plan: - Send a note to Dr. Nuñez, the patient's primary care physician, to discuss the possibility of prescribing sildenafil. - The patient will follow up with Dr. Nuñez in a couple of months. Alcohol Intake - Assessment: The patient reports that his alcohol intake is better and limited to weekends. He states it's controllable. - Plan: - Encourage the patient to continue monitoring his alcohol intake and to seek support if needed. Follow-up - Plan: - Schedule a 3-month follow-up appointment to reassess the patient's symptoms and treatment plan. - The patient is advised to contact the clinic if any significant changes in symptoms occur before the scheduled follow-up. 11/28/2023 Alcohol dependence, uncomplicated (ICD-10 - F10.20) Depression - Plan: - Continue Trintellix 20 mg daily for depression management. - Monitor for any side effects and report any new or worsening symptoms. Anxiety - Plan: - Continue mirtazapine for anxiety management. - Consider counseling or therapy for long-term anxiety management and coping skills development. - Discuss with primary care physician about the possibility of adding propranolol or metoprolol for anxiety and blood pressure management. Insomnia - Plan: - Continue Clonazepam at the current dose for now, with a plan to gradually reduce the dose by 0.5 mg every two months. - Consider [id number] sleep aid, such as melatonin, as an alternative for sleep management. - Discuss with primary care physician about the possibility of prescribing hydroxyzine for anxiety and sleep. Sexual Side Effects - Plan: - Discuss with primary care physician about the possibility of prescribing sildenafil (generic for Viagra) for sexual side effects management. - Monitor for any side effects and report any new or worsening symptoms. Hypertension - Plan: - Continue current blood pressure medications as prescribed by primary care physician. - Discuss with primary care physician about the possibility of adding propranolol or metoprolol for blood pressure and anxiety management. - Monitor blood pressure regularly and report any significant changes to primary care physician. Follow-up - Plan: - Schedule a follow-up appointment in two months to assess progress and adjust treatment plan as needed. Plan Of Treatment No Information Insurance Providers Payer Name Payer Address Payer Phone Subscriber Number Group Number Insured Name Patient Relationship to Insured Coverage Start Date Coverage End Date [employer] [employer] [address] [place] [address] [id number] GERALDO FRENCH Self - patient is the insured Medical (General) History Medical History History ICD Code Problems: Alcohol dependence Complaining of erectile dysfunction Essential hypertension Generalized anxiety disorder Hyperglycemia Hyperlipidemia Severe recurrent major depression withou t psychotic features ,
--- OUTSIDE RECORDS SUMMARY | 2024-09-30 08:25 | XMS_ITS | Encounter Summary ---
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
--- OUTSIDE RECORDS SUMMARY | 2024-09-30 08:25 | XMS_ITS | Encounter Summary ---
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
--- OUTSIDE RECORDS SUMMARY | 2024-09-30 08:25 | XMS_ITS ---
Author Name Auto Generated, Auto Generated Organization [facility] Address [address] [place] [address] Phone [phone] Care Team Providers Care Crystal Evaluator Name Role Phone Angelica Fowler Unavailable Bryson Samuels I Unavailable [phone] Functional Status No Results Mental Status No Results Allergies and Intolerances Name Onset Date Reaction Severity No Known Allergies (Allergy) [place] Jul 05 21:56:00 2024 Encounters Program Name [...] 5 mg tablet 1 tab TABLET Oral SC N Every 8 Hours as needed for muscle spasms SatJul 09 01:00:00 2024Jul 14 01:00:00 EST 2024 BenadryL 25 mg capsule 1 cap CAPSULE Ora l Hour Of Sleep Isabel Feb 20 01:00:00 EST 2024 Feb 25 01:00:00 EST 2024 fenofibrate 54 mg tablet 1 tab TABLET Or al Every Morning Isabel Feb 20 01:00:00 EST 2024 Feb 25 01:00:00 EST 2024 [place] 5 mg-325 mg tablet 1 tab TABLET [...] 4 mg tablet 1 tab TABLET Oral SC N Every 6 Hours as needed for [...] * End Date: * Text: * Other custodial (current) drug therapy* Code: * Start Date: SatJul 09 00:00:00 2024 * End Date: * Text: * retirement (current) use of aspirin* Code: * Start [...]
--- OUTSIDE RECORDS SUMMARY | 2024-09-30 08:25 | XMS_ITS ---
Author Organization [facility] Address [address] [place] [address] Care Team Providers Care Channel Director Name Role Phone Lis Polk Primary Care Provider REASON FOR VISIT Needing Insurance Information Encounters Encounter Location Date Provider Diagnosis [facility] - Lis Polk [address] [place] [address] 06/19/2024 Lis Polk Plan Of Treatment No Information Progress Notes * Soy FRENCHDOB:[birth year] (54 yo M)Acc No.[id number]:06/19/2024 Patient: Brea JAMES Soy :1970 A ge:54 Y S ex:Male Address:[address] , [place], [address] * true * Date: Generated for Printi ng/Faxing/eTransmitting on: 0 09/30/2024 08:25 AM CDT
--- OUTSIDE RECORDS SUMMARY | 2024-09-30 08:26 | XMS_ITS | Clinical Summary ---
Author Organization [facility] Address [address] [place] [address] Care Team Providers Care Recreation Technician Name Role Phone Cam Joseph MD Unavailable [phone] Bryson Samuels DO Unavailable Bryson Samuels DO Primary Care Provider [phone] Allergies No known active allergies Medications clonazePAM (KlonoPIN) 1 mg tabletIndicati ons:anxiety Take 1-2 tablets (1-2 mg total) by mouth 2 (two) times a day as needed for anxiety Active mirtazapine (REMERON) 15 mg tablet Take 1 tablet (15 mg total) by mouth nightly Active aspirin 325 mg tablet Take 1 tablet (325 mg total) by mouth every evening Active simvastatin (ZOCOR) 20 mg tablet Take 1 tablet (20 mg total) by mouth every morning Active fenofibrate (TRICOR) 54 mg tablet Take 1 tablet (54 mg total) by mouth every morning Active omeprazole (PriLOSEC) 40 mg capsule Take 1 capsule (40 mg total) by mouth every morning 09/10/19 21 Active carvediloL (COREG) 12.5 mg tablet Take 1 tablet (12.5 mg total) by mouth 2 (two) times a day 12/01/19 24 Active lisinopriL (PRINIVIL,ZEST RIL) 20 mg tablet Take 1 tablet (20 mg total) by mouth every morning 11/10/19 24 Active diphenhydrAMIN E 25 mg capsule Take 1 tablet/capsule (25 mg total) by mouth nightly Active melatonin 10 mg tablet Take 1 tablet (10 mg total) by mouth nightly Active chlorhexidine (HIBICLENS) 4 % external liquid Shower once a day starting 5 days before surgery, and morning of surgery. 120 mL 07/01/19 25 Active diazePAM (VALIUM) 5 mg tablet Take 1 tab every 8 hours as needed for muscle spasms 15 tablet 07/01/19 25 Active acetaminophen (TYLENOL) 500 mg tablet Take 2 tablets (1,000 mg total) by mouth every 8 (eight) hours as needed for pain Do not exceed 4g acetaminophen in 24hrs 90 tablet 07/06/19 25 Active hydrOXYzine (VISTARIL) 25 mg capsule Take 1 capsule (25 mg total) by mouth 3 (three) times a day as needed for anxiety 40 capsule 07/09/19 25 Active Additional Information Patient not taking.Reported on 08/20/2024 sildenafiL (VIAGRA) 100 mg tablet TAKE 1 TABLET BY MOUTH DAILY NEEDED. MAX DAILY DOSE: 1 TABLET 06/18/19 25 Active ergocalciferol (VITAMIN D) 50,000 unit capsule TAKE 1 CAPSULE BY MOUTH WEEKLY. MAX DAILY DOSE: 84772 UNITS 06/21/19 25 Active dextroamphetam ine-amphetamin e XR (ADDERALL XR) 20 mg 24 hr capsule TAKE 1 CAPSULE BY MOUTH EVERY DAY. MAX DAILY DOSE: 20 08/05/19 25 Active oxyCODONE (ROXICODONE) 5 mg immediate release tabletIndicati ons:Pain Take 1 tablet (5 mg total) by mouth every 4 (four) hours as needed for pain 30 tablet 09/02/19 25 Active oxyCODONE (ROXICODONE) 5 mg immediate release tabletIndicati ons:Pain Take 1 tablet (5 mg total) by mouth every 4 (four) hours as needed for pain 30 tablet 08/07/19 25 025 Discontin ued(Reord er) Active Problems Problem Noted Date Diagnosed Date Anxiety disorder, unspecified 07/09/2024 Essential (primary) hypertension 07/09/2024 Hyperlipidemia, unspecified 07/09/2024 Nicotine dependence, cigarettes, uncomplicated 0 07/09/2024 Strain of muscle, fascia and tendon of right hip, subsequent encounter 07/09/2024 Tear of right gluteus medius tendon, initial enc ounter 07/06/2024 Tear of right gluteus medius tendon 06/11/2024 Secondary hypercoagulable state 09/22/2020 Phlebitis and thrombophlebit is of superficial vessels of left lower extremity 08/31/2020 Assessment & Plan (08/31/2020 8:46 AM CDT): Continue warm compresses and compression therapy. Symptomatic varicose veins, left 08/31/2020 Assessment & Plan (08/31/2020 8:48 AM CDT): I recommended knee-high compression therapy. Obtain venous reflux study follow- up 2 weeks. Tobacco abuse 08/31/2020 Assessment & Plan (08/31/2020 8:48 AM CDT): A greater than 3 minutes was spent on smoking cessation and Education. Different modalities were discussed. The patient verbalized understanding and hopes to quit within 3 months. Chronic pulmonary embolism without acute cor pul monale 08/31/2020 Assessment & Plan (08/31/2020 8:50 AM CDT): History of pulmonary embolism unprovoked. Would recommend referral to Hematology for appropriate hypercoagulable workup. Encounters Date Type Department Care Team Description 08/20/2024 3:00 PM CDT Office Visit [facility] [address] [place] [address] 4 [address] [place] [address] Angelica King MD Pain of right hip (Primary Dx) 07/22/2024 Orders Only [facility] [address] [place] [address] 4 [address] [place] [address] Angelica King MD Right hip pain (Primary Dx) 07/22/2024 Telephone [facility] [address] [place] [address] 4 [address] [place] [address] Angelica King MD 07/06/2024 12:45 PM ELECTRICAL ENGINEERING INTERN - 07/06/2024 2:30 PM ELECTRICAL ENGINEERING INTERN Surgery [facility] Operating Room [address], [place] [address] Angelica King MD RIGHT REPAIR TENDON HIP ABDUCTOR 07/06/2024 12:00 PM ELECTRICAL ENGINEERING INTERN Anesthesia Event [facility] Operating Room [address] [address], [place] [address] Dax Jacobo MD Thomas, Karen D., FIELD OBSERVER 07/06/2024 10:15 AM ELECTRICAL ENGINEERING INTERN - 07/06/2024 4:50 PM ELECTRICAL ENGINEERING INTERN Hospital Encounter [facility] Operating Room [address] [address], [place] [address] Angelica King MD Tear of right gluteus medius tendon, initial encounter (Primary Dx) Discharge Disposition: Discharge to home or self care from Last 3 Months Surgical History Surgery Date Site/Laterality Comments OTHER SURGICAL HISTORY 05/20/2014 - 05/19/2015 Right lung collapsed chest tube ESOPHAGOGASTRODUODENOSCOPY 05/20/2020 - 05/19/2021 Medical History Medical History Date Comments Pulmonary embolism (HCC) HTN (hypertension) Hyperglycemia Dysphagia Anxiety Broken ankle r PE (pulmonary thromboembolism) (HCC) Family History Medical History Relation Name Comments Aortic aneurysm Father Heart attack Father No Known Problems Mother Relation Name Status Comments Father Mother Social History Tobacco Use Types Packs/Day Years Used Date Smoking Tobacco: Some Days Cigarettes 1 25.3 Started: 06/15/1999 Smokeless Tobacco: Never Tobacco Cessation:Ready to Q uit: Not Asked; Counseling Given: Not Answered AUDIT-C Answer Date Recorded Q1: How often do you have a drink containing alcohol? 4 or more times a week 06/15/2024 Q2: How many drinks containi ng alcohol do you have on a typical day when you are drinking? 3 or 4 Q3: How often do you have si x or more drinks on one occasion? Monthly 06/15/2024 Personal Safety Answer Date Recorded Have you ever been in or are you currently in a harmful physical or emotional relationship or is someone making you feel afraid or unsafe? Denies 07/06/2024 Sex and Gender Information Value Date Recorded Sex Assigned at Not on file Legal Sex Male 2:02 AM ELECTRICAL ENGINEERING INTERN Gender Identity Not on file Sexual Orientation Not on file Obstetrics History Last Filed Vital Signs Vital Sign Reading Time Taken Comments Blood Pressure 155/69 07/06/2024 2:50 PM ELECTRICAL ENGINEERING INTERN Pulse 62 07/06/2024 3:00 PM ELECTRICAL ENGINEERING INTERN Temperature 36.9 C (98.4 F) 07/06/2024 3:00 PM ELECTRICAL ENGINEERING INTERN Respiratory Rate 22 07/06/2024 3:00 PM ELECTRICAL ENGINEERING INTERN Oxygen Saturation 92% 07/06/2024 3:00 PM ELECTRICAL ENGINEERING INTERN Inhaled Oxygen Concentration - - Weight 118.4 kg (261 lb) 07/06/2024 11:37 AM ELECTRICAL ENGINEERING INTERN Height 193 cm (6' 3.98) 07/06/2024 11:37 AM ELECTRICAL ENGINEERING INTERN Body Mass Index 31.78 07/06/2024 11:37 AM ELECTRICAL ENGINEERING INTERN Plan of Treatment Health Maintenance Due Date Last Done Comments Colon Cancer Screening-Colonoscopy 1971 Depression Screening 1971 Hepatitis C Screening 1971 Prostate Cancer Screening-PSA 1971 DTaP/Tdap/Td Vaccine (1 - Tdap) 1982 Hepatitis B Screening 1989 Regular Well Visit/Exam 18-64 1989 Pneumococcal vaccine <65 (1 of 2 - PCV) 1990 Lung Cancer Screening 2021 Zoster Vaccine (1 of 2) 2021 Covid-19 Vaccine (4 - season) 2024 06/05/2021, 08/29/2020, 08/01/2020 Influenza Vaccine (Season Ended) 2025 Medical Devices Implanted Type Area Last Turner Device Identifier Shelf Expiration Date Model / Serial / Lot [place] Suture 4.75mm Mo-6 Alphavent Taper Biocompos 2 Implanted:Qty : 1 on 07/06/2024 at [facility] Other - see comments Right: Hip Cody 02/03/2025 3910-847- 120 / / [id number] [place] Suture 4.75mm Mo-6 Alphavent Taper Biocompos 2 Implanted:Qty : 1 on 07/06/2024 at [facility] Other - see comments Right: Hip Aditya 01/16/2025 3910-847- 120 / / [id number] Aditya Endoscopy [place] Suture Alphavent Knotless Sp 4.75mm Peek Sterile 3776-831-240 - [id number] Implanted:Qty : 1 on 07/06/2024 at [facility] Right: Hip Aditya Endoscopy 03/23/2026 3911-956- 547 / / [id number] Cody Endoscopy [place] Suture Alphavent Knotless Sp 4.75mm Peek Sterile [id number] - [id number] Implanted:Qty : 1 on 07/06/2024 at [facility] Right: Hip Aditya Endoscopy 03/23/2026 3911-956- 547 / / [id number] Procedures Procedure Name Priority Date/Time Associated Diagnosis Comments CT AN PROCEDURE PLACEHOLDER Routine 07/06/2024 12:11 [address]N [address] AN ELECTIVE ENDOTRACHEAL AIRWAY Routine 07/06/2024 12:11 PM ELECTRICAL ENGINEERING INTERN REPAIR TENDON HIP ABDUCTOR 07/06/2024 12:00 PM ELECTRICAL ENGINEERING INTERN Tear of right gluteus medius tendon, initial encounter Special Needs Free needles, Beanbag, Arthrex 2.6 Knotless RC FiberTaks, Arthrex 3.9mm SwiveLocks, Arthrex 4.75mm SwiveLocks, Open glute tray, (Arthrex Arthroflex 200 if graft needed) from Last 3 Months Results * CT AN ELECTIVE ENDOTRACHEAL AIRWAY, CT AN PROCEDURE PLACEHOLDER (07/06/2024 12:11 PM ELECTRICAL ENGINEERING INTERN) Narrative Aundrea Underwood CRNA - 07/06/2024 12:11 PM ELECTRICAL ENGINEERING INTERN Aundrea Underwood CRNA 07/06/2024 12:11 PM Airway Patient location: OR Urgency: elective Indications for airway management: anesthesia Difficult airway: no Staff: Placed by: PROFESSIONAL WRESTLER: Aundrea Underwood CRNA Airway prep: Preoxygenated: yes Patient position: sniffing Mask difficulty assessment: 1 - vent by mask Sedation level during airway: GA Final airway details: Final airway type: endotracheal airway Tube type: ETT ETT size: 8.0 mm Cuffed: yes Technique used for successful ETT placement: direct laryngoscopy Devices/Methods used in placement: cricoid pressure and stylet Insertion site: oral Blade type: Bennett Blade size: 2 Cormack-Lehane (direct): grade I - full view of glottis Cuff inflated with: air Placement verified by: auscultation and CO2 detection Airway secured with: silk tape Number of attempts: 1 Dax Jacobo MD ANESTHESIA ORDERABLES Shira ha Result from Last 3 Months Insurance [employer] [place] [employer] [place] Care Teams Recreation Technician Relationship Specialty Start Date End Date Bryson Samuels DO [address] [facility] [address] [place] [id number] PCP - General Internal Medicine 06/25/24 Cam Joseph MD [address] [facility] [address] [place] [address] Internal Medicine 10/12/20 Bryson Samuels DO [address] [facility] [address] [place] [address] Referring Physician Internal Medicine 09/24/23
--- OUTSIDE RECORDS SUMMARY | 2024-09-30 08:26 | XMS_ITS ---
Author Organization [facility] Address [address] [place] [address] Care Team Providers Care It Intern Name Role Phone Lis Polk Primary Care Provider REASON FOR VISIT Duplicate Lab Orders Encounters Encounter Location Date Provider Diagnosis [facility] - Lis Polk [address] [place] [address] 06/11/2024 Lis Polk Plan Of Treatment No Information Progress Notes * Soy FRENCHDOB:[birth year] (54 yo M)Acc No.[id number]:06/11/2024 Patient: Brea JAMES Soy :1970 A ge:54 Y S ex:Male Address:[address] , [place], [address] * true * Date: Generated for Printi ng/Faxing/eTransmitting on: 0 09/30/2024 08:25 AM CDT
--- OUTSIDE RECORDS SUMMARY | 2024-09-30 08:26 | XMS_ITS | Clinical Summary ---
Author Organization [facility] Address [address] [place] [address] Care Team Providers Care Web Systems Developer Name Role Phone Unavailable Primary Care Provider Unavailabl e Social History Tobacco Use Types Packs/Day Years Used Date Smoking Tobacco: Never Assessed Sex and Gender Information Value Date Recorded Sex Assigned at Not on file Legal Sex Male 4:32 PM CDT Gender Identity Not on file Sexual Orientation Not on file Plan of Treatment Health Maintenance Due Date Last Done Comments Colorectal Cancer Screening Colonoscopy (10 Years) 1971 Annual Physical 1974 Hepatitis C 1989 DTaP, Tdap and Td Vaccines ( 1 - Tdap) 1990 Hepatitis B Vaccines (1 of 3 - 19+ 3-dose series) 1990 Pneumococcal Vaccine: 50+ Ye ars (1 of 1 - PCV) 2021 Zoster Vaccines (1 of 2) 2021 COVID-19 Vaccine (2023-2 5 season) 2024 Meningococcal B Vaccine Aged Out No l onger eligible based on patient's age to complete this topic Meningococcal Vaccine Aged Out No julianna cheyanne eligible based on patient's age to complete this topic RSV Immunizations Under 20 Months Aged Out No longer eligible based on patient's age to complete this topic
--- OUTSIDE RECORDS SUMMARY | 2024-09-30 08:26 | XMS_ITS | Patient Health Record ---
Author Organization [facility] Address [address] [address] Care Team Providers Care Watcher Automat Long Goods Name Role Phone Jam Lis Primary Care Provider Allergies No Known Allergies Results Component Value Reference Range Notes DEXAMETHASONE Reviewed date:06/14/2024 02:53:31 PM Interpretation: Performing Lab:[facility]by THOMAS/Tin [facility],, [address] [place], [address] Mindy Bird MD,PhD,SEAN Notes/Report: FASTING:YES FASTING: YES DEXAMETHASONE 357 Reference Ranges for Dexamethasone: Baseline: Less than 20 ng/dL 1 mg dexamethasone overnight: 180-550 ng/dL (8:00-10:00 AM) This test was developed and its analytical performance characteristics have been determined by [facility]. It has not been cleared or approved by FDA. This assay has been validated pursuant to the CLIA regulations and is used for clinical purposes. CORTISOL, TOTAL Reviewed date:06/06/2024 10:15:12 AM Interpretation: Performing Lab:Tabby BROWN-[facility], [address] [facility] [place], [address] Mary Anne Potter MD Notes/Report: FASTING:YES FASTING: YES ACTH, PLASMA Reviewed date:06/20/2024 07:39:26 PM Interpretation: Performing Lab:[facility], [address], [place], [address] Dominick Diana M.D.,PhD Notes/Report: DHEA SULFATE Reviewed date:06/18/2024 01:24:34 PM Interpretation: Performing Lab:[place], [facility], [address], [place], [address] Mary Anne Potter MD Notes/Report: FSH Reviewed date:06/18/2024 01:24:34 PM Interpretation: Performing Lab:[place], [facility], [address], [place], [address] Mary Anne Potter MD Notes/Report: INSULIN Reviewed date:06/18/2024 01:24:34 PM Interpretation: Performing Lab:KS, [facility], [address], [place], [address] Mary Anne Potter MD Notes/Report: LH Reviewed date:06/18/2024 01:24:34 PM Interpretation: Performing Lab:[place], [facility], [address], [place], [address] Mary Anne Potter MD Notes/Report: VITAMIN B12/FOLATE, SERUM PA MARIA T Reviewed date:06/18/2024 01:24:34 PM Interpretation: Performing Lab:KS, [facility], [address], [place], [address] Mary Anne Potter MD Notes/Report: PROLACTIN Reviewed date:06/18/2024 01:24:34 PM Interpretation: Performing Lab:KS, [facility], [address], [place], [address] Mary Anne Potter MD Notes/Report: LIPID PANEL Reviewed date:06/18/2024 01:24:34 PM Interpretation: Performing Lab:[facility], [facility], [address], [place], [address] Mary Anne Potter Notes/Report: Reason For Referral No Information Medications Medication SIG (Take, Route, Frequency, Duration) Notes Start Date End Date Status Fenofibrate 54 MG 1 tablet with food Orally Once a day Active Lisinopril 20 MG 1 tablet Orally Once a day Active dexAMETHasone 1 MG 1 tablet Orally at 1 0 pm night before 8 am cortisol for 1 days 05/25/2024 Active Simvastatin 20 MG 1 tablet in the evening Orally Once a day Active Omeprazole 40 MG 1 capsule 1/2 to 1 hour before morning meal Orally Once a day Active Carvedilol 12.5 MG 1 tablet with food Orally Twice a day Active KlonoPIN 1 MG 1 tablet Orally Once a day twice daily Active clomiPRAMINE HCl 50 MG 1 capsule at bedt salina Orally Once a day taken for OCD Active Mirtazapine 15 MG 1 tablet at bedtime Orally Once a day Active Aspirin 325 MG 1 tablet Orally Once a day Active Problems Problem Type SNOMED Code ICD Code Onset Dates Problem Status W/U Status Risk Notes Problem Obesity (730569154) Obesity, unspecified (E66.9) Active confirmed Problem Generalized anxiety disorder (08008320) Generalized anxiety disorder (F41.1) Active confirmed Problem Insomnia (177609957) Insomnia due to medical condition (G47.01) Active confirmed Vital Signs Heart Rate 82 /min 05/25/2024 Respiratory Rate 12 /min 05/25/2024 Blood pressure diastolic 80 mm Hg 05/25/2024 Height 74 in 06/29/2024 Blood pressure systolic 130 mm Hg 05/25/2024 Weight 250 lbs 06/29/2024 BMI 32.09 kg/m2 06/29/2024 Encounters Encounter Location Date Provider Diagnosis [facility] [address] [place] [address] 05/25/2024 [facility], [facility] - [facility] [address] [place] [address] 06/11/2024 Lis Polk [facility], [facility] - [facility] [address] [place] [address] 06/19/2024 Lis Polk [facility], [facility] - [facility] [address] [place] [address] 05/25/2024 Lis Polk Obesity, unspecified E66.9 ; Abnormal weight gain R63.5 ; Generalized anxiety disorder F41.1 ; Insomnia due to medical condition G47.01 and Encounter for screening for lipoid disorders Z13.220 [facility], [facility] - [facility] [address] [place] [address] 06/29/2024 Lis Polk Assessments Encounter Date Diagnosis (ICD Code) Assessment Notes Treatment Notes Treatment Clinical Notes Section Notes 05/25/2024 Obesity, unspecified (ICD-10 - E66.9) 05/25/2024 Abnormal weight gain (ICD-10 - R63.5) 05/25/2024 Generalized anxiety disorder (ICD-10 - F41.1) 05/25/2024 Insomnia due to medical condition (ICD-10 - G47.01) 05/25/2024 Encounter for screening for lipoid disorders (ICD-10 - Z13.220) 05/25/2024 Other Assessment and Plan: 1. Anxiety and sexual side effects- Continue Clonazepam 1 mg twice a day, Clomipramine 50 mg once a day, Mirtazapine 15 mg once a day- Monitor medication response and side effects 2. Erectile dysfunction- Assess for factors contributing to condition, including effects of anxiety medications, blood pressure, and dyslipidemia- Explore alternative treatments if Viagra and Cialis are ineffective, such as penile injections 3. High blood pressure- Maintain Lisinopril 20 mg and Carvedilol 12.5 mg twice a day- Regularly monitor blood pressure 4. High cholesterol- Continue Fenofibrate 54 mg and Simvastatin 20 mg- Monitor lipid profile 5. Insomnia- Persist with current sleep aids, including vgvy-yjk-[id number] options, Mirtazapine 15 mg, and Acetaminophen- Evaluate for sleep apnea and consider further assessment if indicated 6. Possible cortisol imbalance- Order dexamethasone suppression test for pituitary and adrenal function evaluation- Test fasting glucose and insulin levels for insulin resistance- Reevaluate testosterone levels 7. History of deep vein thrombosis (DVT) and clotting issues- Continue Aspirin 325 mg- Watch for signs of recurrent clotting 8. Gastroesophageal reflux disease (GERD)- Maintain Omeprazole 40 mg Follow-up:- Arrange a follow-up visit in 3-4 weeks to discuss lab results and further management- Send orders for blood work and dexamethasone prescription to [facility]- Provide explicit instructions for lab tests, ensuring tests are conducted separately and at least 3-4 days apart to prevent inaccurate results Spent 45 minutes preparing to see the patient (ex review of tests/chart), obtaining and / or reviewing separately obtained history, performing a medically appropriate examination and/or evaluation, counseling and educating the patient/family/careg iver, ordering medications, tests, or procedures, referring and communicating with other health acute care assistant, documenting clinical information in the electronic or other health record, independently interpreting results and communicating results to the patient/family/careg iver and care coordinating patient plan. Patient alert and oriented x 4 and aware of discussion noted above and in agreeance to plan in management of obestity, low libido/decreased erections in seteting of hypertension, dyslipidemia, JACINTA, insomnia. Due to the nature of telemedicine, the ability to do physical assessment was limited to what can be accomplished by patient directed telehealth visit based on instruction. Those limits are understood by the patient and myself. Impression is based on history, available information, and physical findings accomplished with telehealth visit. Chronic disease/problem list/ medication list reviewed and updated where indicated. Discussed diagnosis, plan including risks, benefits, and options of treatment. Advised to call for new, worsening, or persistent symptoms. Level of patient risk was of moderate complexity due to the documented nature of presentation, the information assessment required and the nature of the development of an evaluation and treatment plan as documented. PMH, FHx, SHx, Surgical Hx, Quality management review carried out and addressed as documented today as part of this visit. Medication list was reviewed and adjusted as indicated. Medication requiring a refill was addressed. Risk and benefits of any new medications were discussed and all questions were answered. Plan Of Treatment No Information Insurance Providers Payer Name Payer Address Payer Phone Subscriber Number Group Number Insured Name Patient Relationship to Insured Coverage Start Date Coverage End Date [facility] [address] [address] [place] [address] [id number] Soy Bucio Self - patient is the insured Medical (General) History Medical History History ICD Code hypertension obesity insomnia generalized anxiety
--- OUTSIDE RECORDS SUMMARY | 2024-09-30 08:26 | XMS_ITS | Referral Summary ---
Author Organization [facility] Address [address] [place] [address] Care Team Providers Care Program Production Specialist Name Role Phone Cam Joseph MD Unavailable [phone] Bryson Samuels DO Unavailable Bryson Samuels DO Primary Care Provider [phone] Encounters Date Type Department Care Team Description 08/20/2024 3:00 PM CDT Office Visit [facility] [address] [place] [address] [address] [place] [phone] Angelica King MD Pain of right hip (Primary Dx) 07/22/2024 Orders Only [facility] [address] [place] [address] [address] [place] [phone] Angelica King MD Right hip pain (Primary Dx) 07/22/2024 Telephone [facility] [address] [place] [address] Office [facility] [address] [place] [address] Angelica King MD 07/06/2024 12:45 PM FIRE WARDEN - 07/06/2024 2:30 PM FIRE WARDEN Surgery [facility] Operating Room [address] [address] Angelica King MD RIGHT REPAIR TENDON HIP ABDUCTOR 07/06/2024 12:00 PM FIRE WARDEN Anesthesia Event [facility] Operating Room [address], [address] [address] Dax Jacobo MD Thomas, Karen D., HYDRO MECHANIC 07/06/2024 10:15 AM FIRE WARDEN - 07/06/2024 4:50 PM FIRE WARDEN Hospital Encounter [facility] Operating Room [address], [address] [address] Angelica King MD Tear of right gluteus medius tendon, initial encounter (Primary Dx) Discharge Disposition: Discharge to home or self care from Last 3 Months Allergies No known active allergies Medications clonazePAM [...] CAPSULE BY MOUTH WEEKLY. MAX DAILY DOSE: [id number] UNITS 06/21/19 25 Active dextroamphetam ine-amphetamin e [...] referral to Hematology for appropriate hypercoagulable workup. Social History Tobacco Use Types Packs/Day Years [...] on file Legal Sex Male 2:02 AM FIRE WARDEN Gender Identity Not on file Sexual Orientation Not on file Last Filed Vital Signs Vital Sign Reading Time Taken Comments Blood Pressure 155/69 07/06/2024 2:50 PM FIRE WARDEN Pulse 62 07/06/2024 3:00 PM FIRE WARDEN Temperature 36.9 C (98.4 F) 07/06/2024 3:00 PM FIRE WARDEN Respiratory Rate 22 07/06/2024 3:00 PM FIRE WARDEN Oxygen Saturation 92% 07/06/2024 3:00 PM FIRE WARDEN Inhaled Oxygen Concentration - - Weight 118.4 kg (261 lb) 07/06/2024 11:37 AM FIRE WARDEN Height 193 cm (6' 3.98) 07/06/2024 11:37 AM FIRE WARDEN Body Mass Index 31.78 07/06/2024 11:37 AM FIRE WARDEN Plan of Treatment Not on file Medical Devices Implanted Type Area Waybill Clerk Device Identifier Shelf Expiration Date Model / Serial / Lot [place] Suture 4.75mm Mo-6 Alphavent Taper Biocompos 2 Implanted:Qty : 1 on 07/06/2024 at [facility] Other - see comments Right: Hip Aditya 02/03/2025 3910-847- 120 / / [id number] [place] Suture 4.75mm Mo-6 Alphavent Taper Biocompos 2 Implanted:Qty : 1 on 07/06/2024 at [facility] Other - see comments Right: Hip Aditya 01/16/2025 3910-847- 120 / / [id number] [facility] [place] Suture Alphavent Knotless Sp 4.75mm Peek Sterile [id number] - [id number] Implanted:Qty : 1 on 07/06/2024 at [facility] Right: Hip [facility] 03/23/2026 3911-956- [id number] / / [id number] Aditya [facility] [place] Suture Alphavent Knotless Sp 4.75mm Peek Sterile [id number] - [id number] Implanted:Qty : 1 on 07/06/2024 at [facility] Right: Hip [facility] 03/23/2026 [id number] / / [id number] Procedures Procedure Name Priority Date/Time Associated Diagnosis Comments W[place] AN PROCEDURE PLACEHOLDER Routine 07/06/2024 12:11 PM FIRE WARDEN WY AN ELECTIVE ENDOTRACHEAL AIRWAY Routine 07/06/2024 12:11 PM FIRE WARDEN REPAIR TENDON HIP ABDUCTOR 07/06/2024 12:00 PM FIRE WARDEN Tear of right gluteus medius tendon, initial encounter Special Needs Free needles, Beanbag, Arthrex 2.6 Knotless RC FiberTaks, Arthrex 3.9mm SwiveLocks, Arthrex 4.75mm SwiveLocks, Open glute tray, (Arthrex Arthroflex 200 if graft needed) from Last 3 Months Results * WY AN ELECTIVE ENDOTRACHEAL AIRWAY, W[place] AN PROCEDURE PLACEHOLDER (07/06/2024 12:11 PM FIRE WARDEN) Aundrea Ruiz CRNA - 07/06/2024 12:11 PM FIRE WARDEN Aundrea Underwood CRNA 07/06/2024 12:11 PM Airway Patient location: OR Urgency: elective Indications for airway management: anesthesia Difficult airway: no Staff: Placed by: MEMORY CARE DIRECTOR: Aundrea Underwood CRNA Airway prep: Preoxygenated: yes [...] ha Result from Last [address] [place] [address] [facility] Care Teams Program Production Specialist Relationship Specialty Start Date End Date Bryson Samuels DO [address] [place] [address] PCP - General Internal Medicine 06/25/24 Cam Joseph MD [address] [place] [address] Internal Medicine 10/12/20 Bryson Samuels DO [address] [place] [address] Referring Physician Internal Medicine 09/24/23
[2024-10-19 16:20] VITALS: BMI 29.8
--- NOTE | 2024-10-19 16:20 | P.SLEEP_ITS ---
Sleep Study - Home Unattended Date of Study: 09/30/24 Ordering Provider: Moo Myers APRN Interpreting Provider: Kary Rodriguez, DO Home Sleep Study Type: Watch PAT Height: 1.93 m Weight: 111.13 kg Body Mass Index: 29.8 Neck Circumference (inches): 17.5 Stoddard: 12 Reason for Sleep Study Daytime hypersomnia Sleep History The patient is a 54-year-old male that had a sleep study ordered by his primary care for evaluation of sleep apnea. The patient admits to snoring loudly, trouble falling asleep, trouble staying asleep, and unwanted behaviors during sleep. The patient does have interruptions in breathing while asleep. He denies choking or gasping at night. He denies having trouble breathing on his back. He denies morning headaches. He does have a dry or sore mouth/throat in the morning. He denies nocturnal heartburn. He denies nocturia. He denies having difficulty returning to sleep if he wakes up throughout the night. He does use hypnotics or sedatives. He does feel anxious about sleep. He does feel tired or sleepy during the day. He does feel tired in the morning. He does have the urge to fall asleep during the day. He denies feeling drowsy while driving. He denies sleep paralysis, cataplexy, and hypnagogic/hypnopompic hallucinations. He does clench or grind his teeth. He denies kicking or jerking his legs excessively. He denies having a restless feeling in his legs. He goes to bed at 10 p.m. on workdays and at 11:30 p.m. on his days off. It takes him 45 minutes to fall asleep on workdays and 30 minutes on his days off. He gets 8 hours of sleep on his days off. His sleep is somewhat restorative on his days off. He does take planned naps in the afternoon that are less than 1 hour. His naps are restorative. He does act out his dreams. He does sleepwalk as an adult. He denies consuming any caffeinated beverages throughout the day. He consumes 2 alcoholic beverages 3-4 nights per week. He smokes 6-20 cigarettes per day. He denies exercising on a regular basis. PMFSH Past Medical History Medical History History of pulmonary embolism Anxiety disorder, unspecified Essential (primary) hypertension Pure hypercholesterolemia, unspecified Surgical History Surgical History S/P pilonidal cyst excision 03/09/24 Dr. Bowden Hx of umbilical hernia repair Open umbilical hernia repair on 10/17/22. Family History Family History Father Cerebrovascular accident Patient's father is Family history of aortic aneurysm Mother Patient's mother is Sibling Hypertension Social History Social History Smoking packs per day: 0.5 Smoking cigarettes per day: 10.0 Years smoked: 35 Smoking pack-years: 17.50 Smoking status: Former smoker Tobacco type: cigarettes Second hand tobacco smoke exposure: No Smoking end date: 05/20/10 Alcohol intake: current Drinks per week: 6 Substance use: never Substance use type: does not use Do You Feel Safe in your Home?: Yes Lack of Transportation: No Lack of Food: Never True Current Housing: I Have Housing Concerned About Future Housing: No Difficulty Paying Gas/Electric Bills: No Difficulty Paying for Meds: No Currently Unemployed: No Education: Bachelor's Degree Difficulty w/ Childcare or Family Care: No Living arrangements: with family Occupation/Education: occupation 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[employer] Gender identity (if verbalized by the patient): Male Spiritual care concerns: No Medications Home Medications ?Medication ?Instructions ?Recorded ?Confirmed ?Type aspirin 325 mg tablet 325 mg PO DAILY 10/11/22 05/02/24 History fenofibrate 54 mg tablet 54 mg PO DAILY #90 tabs 11/20/23 05/02/24 Rx simvastatin 20 mg tablet 20 mg PO DAILY #90 tabs 11/20/23 05/02/24 Rx gabapentin 300 mg capsule 300 mg PO QHS #30 caps 04/20/24 05/02/24 Rx clonazepam 1 mg tablet (Klonopin) 1 mg PO DAILY #90 tabs 01/21/25 Rx omeprazole 40 mg capsule,delayed See Rx Instructions .Route 07/31/24 Rx release .COMPLEX #90 caps carvedilol 12.5 mg tablet 12.5 mg PO Q12H #180 tabs 09/02/24 Rx lisinopril 20 mg tablet See Rx Instructions .Route 09/28/24 Rx .COMPLEX #90 tabs Sleep Procedure The sleep study was completed using HojokiPAT a technically adequate device with seven channels: peripheral arterial tone, actigraphy, body position, snore, respiratory movement, pulse oximetry, sleep staging, and heart rate. Prior to using the device, the patient received verbal and written instructions for its application and was provided with the help desk phone number for additional telephonic instruction with 24-hour availability of qualified personnel to answer questions. The study was scored using CMS guidelines. Sleep Architecture The total recording time is 8 hrs, 22 min. The total sleep time is 7 hrs, 55 min. Sleep latency is 16 minutes. REM latency is 101 minutes. The patient had 3 episodes of waking. Sleep architecture shows 29.1% deep sleep, 30.7% light sleep, and (as % Total Sleep Time) showed NREM (Light 30.7%; Deep 29.1%), and a 40.2% stage REM. The patient spent 63.4% of total sleep time in the supine position. Sleep efficiency was 94.62. Respiratory Analysis The overall AHI (pAHI 4%:) is 3.4. The overall AHI (pAHI 3%:) is 6.1. The central AHI is 0.5. The AHI was 1.3 in NREM and 13.2 in REM sleep. The AHI was 6.0 in Supine and 6.2 in Non-supine sleep. Percent of Blas Wright respirations is 0.0. Oximetry Data The oxygen desaturation index (LULY 4%:) is 3.4. The mean saturation is 91%, and the lowest saturation is 86%. Time spent with saturation < 88% is 4.4 minutes. Snoring Profile Snoring average intensity is 42 dB. The patient snored above 45 decibels for 68.2 minutes, 14.3% of sleep time. Cardiac Profile The average pulse rate is 62 beats per minutes. The lowest pulse rate is 50 bpm. The highest pulse rate reported is 84 bpm. Atrial fibrillation was not detected. Premature beats occur <0.1 per minute. Assessment and Plan Assessment and Plan (1) Sleep disturbances: Code(s): G47.9 - Sleep disorder, unspecified Status: Acute Assessment and Plan: The patient had an overall AHI of 3.4 with desaturation down to 86%. This is not consistent with sleep disordered breathing. Due to the patient's dream enactment behavior mentioned in the sleep history and excessive daytime sleepiness, furthe r evaluation is warranted. I recommend that the patient have a split study with the use of a hypnotic to ensure we obtain enough sleep data. Data The data obtained during this sleep study is adequate for interpretation. Certification This sleep study has been reviewed by a board certified sleep medicine physician.
== END 2024-10-01 10:45 | disposition home or self-care (01) ==
LOC: ANHCSM 08:16
PROVIDERS: PCP Internal Medicine; Visit Provider Nurse Practitioner
DX: G47.9 Sleep disorder, unspecified (principal); R79.89 Other specified abnormal findings of blood chemistry; E66.9 Obesity, unspecified
CPT/HCPCS: 95800

== ENCOUNTER 2024-11-27 14:12 | Outpatient (CLI) | payer BC, SELFPAY ==
--- NOTE | ~2024-11-27 | MR_ITS ---
MRI of the right hip Clinical history: Pain Technique: Coronal T1-weighted, T2-weighted, and proton-density fat-sat images, and axial T1-weighted and proton-density fat-sat images were acquired through the pelvis. Coronal T2-weighted images and c oronal, axial, and sagittal proton-density fat-sat images were acquired through the right hip. Findings: There is no fracture or avascular necrosis of either hip. Bone marrow signals the proximal femora and pelvic bones are unremarkable. There is mild chondral thinning of the bilateral hip joints . No significant joint effusion in either side. Probable degenerative attenuation of the anterior rig ht acetabular labrum. Visualized musculature about the pelvis and right hip is unremarkable. No muscle atrophy or edema laisha ntified. Probable developing right trochanteric bursitis. The tendons appear to be intact. No other s oft tissue mass or fluid collection seen. IMPRESSION: Probable right greater trochanteric bursitis. Mild chondral thinning diffusely of both hip joints. Probable mild degenerative attenuation of the anterior right acetabular labrum. Reviewed, dictated and finalized at location .
== END 2024-11-27 14:13 | disposition home or self-care (01) ==
LOC: GOSHIMG 14:13
PROVIDERS: PCP Orthopaedic Surgery; Visit Provider Orthopaedic Surgery
DX: Z47.89 Encounter for other orthopedic aftercare (principal); M94.251 Chondromalacia, right hip; M94.252 Chondromalacia, left hip
CPT/HCPCS: 73721

== ENCOUNTER 2024-12-10 09:09 | Outpatient (CLI) | payer BC, SELFPAY ==
--- OUTSIDE RECORDS SUMMARY | 2024-12-10 09:18 | XMS_ITS | Encounter Summary ---
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
--- OUTSIDE RECORDS SUMMARY | 2024-12-10 09:18 | XMS_ITS ---
Author Organization [facility] Address [address] [place] [address] Care Team Providers Care Round Up Ring Hand Name Role Phone Lis Polk Primary Care Provider REASON FOR VISIT Lab Review/TEXT PLEASE Vital Signs Height 74 in 06/29/2024 Weight 250 lbs 06/29/2024 BMI 32.09 kg/m2 06/29/2024 Encounters Encounter Location Date Provider Diagnosis [facility] - Lis Polk [address] [place] [address] 06/29/2024 Lis Polk Plan Of Treatment No Information Progress Notes * Soy FRENCHDOB:[birth year] (54 yo M)Acc No.[id number]:06/29/2024 Progress Notes Patient: Soy ROWLAND Provider: Socrates Polk MD :1970 A ge:54 Y S ex:Male Date:06/29/2024 Address:[facility] [address] , [facility] Subjective: * Chief Complaints: * 1 . Lab Review/TEXT PLEASE. * Medical History: Objective: * Vitals: H t: 74, Wt: 250, BMI: 32.09. Assessment: Plan: * Treatment: * Billing Information: * Visit Code: * Procedure Codes: * Electronic signature of Horacio Polk MD on 12/10/2024 at 09:18 AM CDT Sign off status: Pending * Provider: Socrates Polk MD Date: 06/29/2024 Generated for Printi ng/Faxing/eTransmitting on: 0 12/10/2024 09:18 AM CDT
--- OUTSIDE RECORDS SUMMARY | 2024-12-10 09:18 | XMS_ITS | Referral Summary ---
Author Organization [facility] Address [address] [place] [address] Care Team Providers Care Hand Cooper Helper Name Role Phone Cam Joseph MD Unavailable [phone] Bryson Samuels DO Unavailable Bryson Samuels DO Primary Care Provider [phone] Encounters Date Type Department Care Team Description 12/07/2024 10:21 AM CDT - 12/07/2024 11:59 PM CDT Hospital Encounter [facility] [address] [place] [address] Arrived Discharge Disposition: Discharge to home or self care 11/11/2024 11:30 AM CDT Office Visit [facility] Orthopaedic Surgery [address] [place] [address] Medical Office Building [address] [place] [address] Angelica King MD Pain of right hip (Primary Dx); Right hip pain; Orthopedic aftercare from Last 3 Months Allergies No known [...] (40 mg total) by mouth every morning 1 Active carvediloL (COREG) 12.5 mg tablet Take 1 tablet (12.5 mg total) by mouth 2 (two) times a day 4 Active lisinopriL (PRINIVIL,ZEST RIL) 20 mg tablet Take 1 tablet (20 mg total) by mouth every morning 4 Active diphenhydrAMIN E 25 mg capsule Take 1 tablet/capsule (25 mg total) by mouth nightly Active melatonin 10 mg tablet Take 1 tablet (10 mg total) by mouth nightly Active chlorhexidine (HIBICLENS) 4 % external liquid Shower once a day starting 5 days before surgery, and morning of surgery. 120 mL 5 Active diazePAM (VALIUM) 5 mg tablet Take 1 tab every 8 hours as needed for muscle spasms 15 tablet 5 Active acetaminophen (TYLENOL) 500 mg tablet Take 2 tablets (1,000 mg total) by mouth every 8 (eight) hours as needed for pain Do not exceed 4g acetaminophen in 24hrs 90 tablet 5 Active hydrOXYzine (VISTARIL) 25 mg capsule Take 1 capsule (25 mg total) by mouth 3 (three) times a day as needed for anxiety 40 capsule 5 Active Additional Information Patient not taking.Reported on 11/11/2024 sildenafiL (VIAGRA) 100 mg tablet TAKE 1 TABLET BY MOUTH DAILY NEEDED. MAX DAILY DOSE: 1 TABLET 5 Active ergocalciferol (VITAMIN D) 50,000 unit capsule TAKE 1 CAPSULE BY MOUTH WEEKLY. MAX DAILY DOSE: 41335 UNITS 5 Active dextroamphetam ine-amphetamin e XR (ADDERALL XR) 20 mg 24 hr capsule TAKE 1 CAPSULE BY MOUTH EVERY DAY. 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 Gender Identity Not on file Sexual Orientation Not on file Last Filed Vital Signs Vital Sign Reading Time Taken Comments Blood Pressure 155/69 07/06/2024 2:50 PM BOILER HOUSE MECHANIC Pulse 62 07/06/2024 3:00 PM BOILER HOUSE MECHANIC Temperature 36.9 C (98.4 F) 07/06/2024 3:00 PM BOILER HOUSE MECHANIC Respiratory Rate 22 07/06/2024 3:00 PM BOILER HOUSE MECHANIC Oxygen Saturation 92% 07/06/2024 3:00 PM BOILER HOUSE MECHANIC Inhaled Oxygen Concentration - - Weight 118.4 kg (261 lb) 07/06/2024 11:37 AM BOILER HOUSE MECHANIC Height 193 cm (6' 3.98) 07/06/2024 11:37 AM BOILER HOUSE MECHANIC Body Mass Index 31.78 07/06/2024 11:37 AM BOILER HOUSE MECHANIC Plan of Treatment Not on file Medical Devices Implanted Type Area Sports Teacher Device Identifier Shelf Expiration Date Model / Serial / Lot [place] Suture 4.75mm Mo-6 Alphavent Taper Biocompos 2 Implanted:Qty : 1 on 07/06/2024 at [facility] Other - see comments Right: Hip [place] 02/03/2025 3910-847- 120 / / [id number] [place] Suture 4.75mm Mo-6 Alphavent Taper Biocompos 2 Implanted:Qty : 1 on 07/06/2024 at [facility] Other - see comments Right: Hip [place] 01/16/2025 3910-847- 120 / / [id number] [facility] [place] Suture Alphavent Knotless Sp 4.75mm Peek Sterile 0346-711-716 - [id number] Implanted:Qty : 1 on 07/06/2024 at [facility] Right: Hip [place] [facility] 03/23/2026 [id number] / / [id number] [facility] [facility] [place] Suture Alphavent Knotless Sp 4.75mm Peek Sterile [id number] - [id number] Implanted:Qty : 1 on 07/06/2024 at [facility] Right: Hip [place] [facility] 03/23/2026 3911-956- [id number] / / [id number] Procedures Procedure Name Priority Date/Time Associated Diagnosis Comments MR BODY OUTSIDE REFERENCE Routine 12/07/2024 10:21 AM CDT from Last 3 Months Results * MR Body Outside Reference (12/07/2024 10:21 AM CDT) Impressions [facility] - 12/07/2024 10:21 AM CDT These images are for Reference purposes only and have not been reviewed by [facility]. There will be no report generated by a [facility] Radiologist. Narrative [facility] - 12/07/2024 10:21 AM CDT EXAMINATION: Images For Reference Purposes Only us Angelica Quan MD IMG MRI PROCEDURES Fi nal Result [facility] from Last [address] [place] [address] FORMERLY [facility] Care Teams Hand Cooper Helper Relationship Specialty Start Date End Date Bryson Samuels DO [address] [place] [address] PCP - General Internal Medicine 06/25/24 Cam Joseph MD [address] [place] [address] Internal Medicine 10/12/20 Bryson Samuels DO [address] [place] [address] Referring Physician Internal Medicine 09/24/23
--- OUTSIDE RECORDS SUMMARY | 2024-12-10 09:18 | XMS_ITS ---
Author Name Auto Generated, Auto Generated Organization [facility] Address [address] [place] [address] Phone [phone] Care Team Providers Care Optical Sales Associate Name Role Phone Angelica Fowler Unavailable Bryson Samuels I Unavailable [phone] Functional Status No Results Mental Status No Results Allergies and Intolerances Name Onset Date Reaction Severity No Known Allergies (Allergy) Parrott Jul 05 21:56:00 2024 Encounters Program Name [...] as needed for anxiety SatJul 09:00:00 2024Jul 14 01:00:00 2024 Valium 5 mg tablet 1 tab TABLET Oral NE N Every 8 Hours as needed for muscle spasms SatJul 09 01:00:00 2024Jul 14 01:00:00 EST 2024 BenadryL 25 mg capsule 1 cap CAPSULE Ora l Hour Of Sleep Isabel Feb 20 01:00:00 EST 2024 Feb 25 01:00:00 EST 2024 fenofibrate 54 mg tablet 1 tab TABLET Or al Every Morning Isabel Feb 20 01:00:00 EST 2024 Feb 25 01:00:00 EST 2024 [place] 5 mg-325 mg tablet 1 tab TABLET [...] 4 mg tablet 1 tab TABLET Oral NE N Every 6 Hours as needed for [...] Or al Every Morning Isabel Feb 20 01:00:2024Jul 14 01:00:00 2024 traMADoL 50 mg tablet 1 tab TABLET Oral PRN Every 8 Hours as needed for pain. SatJul 09 01:00:00 2024Jul 14 01:00:00 2024 Problems Active Concerns * Other specified injury of muscle, fascia and tendon of unspecified hip, subsequent encounter* Code: * Start Date: SatJul 07 00:00:00 2024 * End Date: SatJul 09 00:00:00 2024 * Text: * Nicotine dependence, cigarettes, uncomplicated* Code: * Start Date: SatJul 09 00:00:00 2024 * End Date: * Text: * Other [place] [facility] (current) drug therapy* Code: * Start Date: SatJul 09 00:00:00 2024 * End Date: * Text: * terminal press operator (current) use of aspirin* Code: * Start [...] 00:00:00 2024 * End Date: * Text: Reason for Referral
--- OUTSIDE RECORDS SUMMARY | 2024-12-10 09:18 | XMS_ITS | Clinical Summary ---
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
--- OUTSIDE RECORDS SUMMARY | 2024-12-10 09:18 | XMS_ITS | Patient Health Record ---
Author Organization [facility] Address [address] [address] Care Team Providers Care Screen Printing Press Operator Name Role Phone Jam Lis Primary Care Provider [phone] Allergies No Known Allergies Results Component Value Reference Range Notes DEXAMETHASONE Reviewed date:06/14/2024 02:53:31 PM Interpretation: Performing Lab:[facility],, [address] [place], [address] Mindy Bird MD,PhD,SEAN Notes/Report: FASTING:YES FASTING: YES DEXAMETHASONE 357 Reference Ranges for Dexamethasone: Baseline: Less than 20 ng/dL 1 mg dexamethasone overnight: 180-550 ng/dL (8:00-10:00 AM) This test was developed and its analytical performance characteristics have been determined by [employer]. It has not been cleared or approved by FDA. This assay has been validated pursuant to the CLIA regulations and is used for clinical purposes. CORTISOL, TOTAL Reviewed date:06/06/2024 10:15:12 AM Interpretation: Performing Lab:[facility], [address] [facility] [place], [address] Mary Anne Potter MD Notes/Report: FASTING:YES FASTING: YES ACTH, PLASMA Reviewed date:06/20/2024 07:39:26 PM Interpretation: Performing Lab:[facility], [address], [place], [address] Dominick Diana M.D.,PhD Notes/Report: DHEA SULFATE Reviewed date:06/18/2024 01:24:34 PM Interpretation: Performing Lab:KS, [facility], [address], [place], [address] Mary Anne Potter MD Notes/Report: FSH Reviewed date:06/18/2024 01:24:34 PM Interpretation: Performing Lab:KS, [facility], [address], [place], [address] Mary Anne Potter MD Notes/Report: INSULIN Reviewed date:06/18/2024 01:24:34 PM Interpretation: Performing Lab:KS, [facility], [address], [place], [address] Mary Anne Potter MD Notes/Report: LH Reviewed date:06/18/2024 01:24:34 PM Interpretation: Performing Lab:KS, [facility], [address], [place], [address] Mary Anne Potter MD Notes/Report: VITAMIN B12/FOLATE, SERUM PA MARIA T Reviewed date:06/18/2024 01:24:34 PM Interpretation: Performing Lab:KS, [facility], [address], [place], [address] Mary Anne Potter MD Notes/Report: PROLACTIN Reviewed date:06/18/2024 01:24:34 PM Interpretation: Performing Lab:KS, [facility], [address], [place], [address] Mary Anne Potter MD Notes/Report: LIPID PANEL Reviewed date:06/18/2024 01:24:34 PM Interpretation: Performing Lab:[facility], [facility], [address], [place], [address] Mary Anne Potter Notes/Report: Reason For Referral [...] Status W/U Status Risk Notes Problem Obesity (869679023) Obesity, unspecified (E66.9) Active confirmed Problem Generalized anxiety disorder (34467423) Generalized anxiety disorder (F41.1) Active confirmed Problem Insomnia (519559342) Insomnia due to medical condition (G47.01) Active confirmed Vital Signs Heart Rate 82 /min 05/25/2024 Respiratory Rate 12 /min 05/25/2024 Blood pressure diastolic 80 mm Hg 05/25/2024 Height 74 in 06/29/2024 Blood pressure systolic 130 mm Hg 05/25/2024 Weight 250 lbs 06/29/2024 BMI 32.09 kg/m2 06/29/2024 Encounters Encounter Location Date Provider Diagnosis [facility] [address] [place] [address] 05/25/2024 [facility] - Lis [employer] [address] [place] [address] 06/11/2024 Lis Polk [facility] - Lis [employer] [address] [place] [address] 06/19/2024 Lis Polk [facility] - Lis [employer] [address] [place] [address] 05/25/2024 Lis Polk Obesity, unspecified E66.9 ; Abnormal weight gain R63.5 ; Generalized anxiety disorder F41.1 ; Insomnia due to medical condition G47.01 and Encounter for screening for lipoid disorders Z13.220 [facility] - Lis [employer] [address] [place] [address] 06/29/2024 Lis Polk Assessments Encounter Date Diagnosis [...] Insomnia- Persist with current sleep aids, including [id number]-[id number] options, Mirtazapine 15 mg, and Acetaminophen- Evaluate [...] for blood work and dexamethasone prescription to [facility]- Provide explicit instructions for lab tests, [...] procedures, referring and communicating with other health pediatric care coordinator, documenting clinical information in the electronic or [...] Insured Coverage Start Date Coverage End Date [facility] [address] [address] [place] [address] [id number] Soy Bucio Self - patient is the insured Medical (General) History Medical History History ICD Code hypertension obesity insomnia generalized anxiety
--- OUTSIDE RECORDS SUMMARY | 2024-12-10 09:18 | XMS_ITS | Patient Health Record ---
Author Organization [facility] [employer] Address [address] [place] [address] Care Team Providers Care Carry In Worker Name Role Phone Bryson Samuels DO Primary Care Provider Rodney Cedeno Unavailable [phone] Allergies No Known Allergies Reason For Referral No Information Medications Medication SIG (Take, Route, Fr equency, Duration) Notes Start Date End Date Status clonazePAM 1 MG 1 tablet Oral three times a day; Duration: 30 days 02/03/2024 Active Mirtazapine 15 MG 1 tablet at bedtime Oral Once a day; Duration: 30 days Active Simvastatin 20 MG TAKE 1 TABLET BY CHARMAINE TH DAILY Oral; Duration: 90 Days Active Trintellix 20 MG 1 tablet Orally Once a day; Duration: 30 days Active Fenofibrate 54 MG TAKE 1 TABLET BY CHARMAINE TH EVERY DAY Oral; Duration: 90 Days Active Omeprazole 40 MG TAKE 1 CAPSULE BY [place] UTH EVERY DAY Oral; Duration: 90 Days Active Lisinopril 20 MG TAKE 1 TABLET BY CHARMAINE TH DAILY Oral; Duration: 90 Days Active Social History Tobacco Use: [...] W/U Status Risk Notes Problem Alcohol dependence (33846975) Alcohol dependence, uncomplicated (F10.20) Active confirmed Problem Severe recurrent major depression without psychotic features (48573812) Major depressive disorder, recurrent severe without psychotic features (F33.2) Active confirmed Problem Generalized anxiety disorder (F41.1) Active confirmed Vital Signs Heart Rate 68 /min 02/03/2024 Height-cm 193.04 cm 02/03/2024 Blood pressure diastolic 78 mm Hg 02/03/2024 Weight-kg 113.58 kg 02/03/2024 Height 76.00 in 02/03/2024 Blood pressure systolic 133 mm Hg 02/03/2024 Weight 250.4 lbs 02/03/2024 BMI 30.48 kg/m2 02/03/2024 Encounters Encounter Location Date Provider Diagnosis [facility] [address] [address] 02/03/2024 Rodney Mcgregor Major depressive disorder, recurrent severe without psychotic features F33.2 ; On halfway drug therapy Z79.899 ; Generalized anxiety disorder F41.1 and Alcohol dependence, uncomplicated F10.20 [facility] [employer] [place] [id number] [facility] [address] [address] 03/25/2024 Rodney Mcgregor [facility] [employer] [facility] [address] [facility] [address] [address] 03/25/2024 Rodney [facility]am Assessments Encounter Date Diagnosis (ICD Code) Assessment Notes Treatment Notes Treatment Clinical Notes Section Notes 02/03/2024 Major depressive disorder, recurrent severe without [...] occur before the scheduled follow-up. 02/03/2024 On termination clerk drug therapy (ICD-10 - Z79.899) Depression - [...] symptoms occur before the scheduled follow-up. 02/03/2024 Generalized anxiety disorder (ICD-10 - F41.1) [...] in symptoms occur before the scheduled follow-up. Plan Of Treatment No Information Insurance Providers Payer Name Payer Address Payer Phone Subscriber Number Group Number Insured Name Patient Relationship to Insured Coverage Start Date Coverage End Date [employer] [address] [place] [address] [id number] GERALDO FRENCH Self - patient is the insured Medical (General) History Medical History History ICD Code Problems: Alcohol dependence Complaining of erectile dysfunction Essential hypertension Generalized anxiety disorder Hyperglycemia Hyperlipidemia Severe recurrent major depression withou t psychotic features ,
--- OUTSIDE RECORDS SUMMARY | 2024-12-10 09:18 | XMS_ITS | Encounter Summary ---
Author Organization 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
--- OUTSIDE RECORDS SUMMARY | 2024-12-10 09:18 | XMS_ITS ---
Author Name Auto Generated, Auto Generated Organization [facility] Address [address] [place] [address] Phone [phone] Care Team Providers Care Tabulating Clerk Name Role Phone Angelica Fowler Unavailable Bryson Samuels I Unavailable [phone] Functional Status Mental Status Allergies and Intolerances Encounters Medications Problems Reason for Referral
--- OUTSIDE RECORDS SUMMARY | 2024-12-10 09:18 | XMS_ITS | Patient Health Record ---
Author Organization [facility] Address [id number] [place] [id number] Care Team Providers Care Inventory Control/Shipping Receiving Name Role Phone Lis Polk Unavailable [phone] Allergies No Known Allergies Results Component Value Reference Range Flag Notes ACTH, PLASMA Reviewed date:06/18/2024 01:24:34 PM Interpretation: Performing Lab:[facility]by DRISCOLL[facility], [address], [place], [address] Dominick Diana M.D.,PhD Notes/Report: DEXAMETHASONE Reviewed date:06/14/2024 02:53:31 PM Interpretation: Performing Lab:Tabby THOMAS/[facility],, [address] [place], [address] Mindy Bird MD,PhD,SEAN Notes/Report: FASTING:YES FASTING: YES Reference Ranges for Dexamethasone: Baseline: Less than 20 ng/dL 1 mg dexamethasone overnight: 180-550 ng/dL (8:00-10:00 AM) This test was developed and its analytical performance characteristics have been determined by [facility]. It has not been cleared or approved by FDA. This assay has been validated pursuant to the CLIA regulations and is used for clinical purposes. DEXAMETHASONE 357 CORTISOL, TOTAL Reviewed date:06/06/2024 10:15:12 AM Interpretation: Performing Lab:STEPHANIE, [facility]by [place], [address] [place], [address] Mary Anne Potter MD Notes/Report: FASTING:YES FASTING: YES Reference Range: For 8 a.m.(7-9 a.m.) Specimen: 4.0-22.0 Reference Range: For 4 p.m.(3-5 p.m.) Specimen: 3.0-17.0 * Please interpret above results accordingly * Your request to have a duplicate copy faxed has been acknowledged. Queued to: [id number] CORTISOL, TOTAL 1.6 L DHEA SULFATE Reviewed date:06/18/2024 01:24:34 PM Interpretation: Performing Lab:[facility]IE [facility], [place], [address] Mary Anne Potter MD Notes/Report: DHEA SULFATE 326 32-279 mcg/dL H FSH Reviewed date:06/18/2024 01:24:34 PM Interpretation: Performing Lab:[facility]IE [facility], [place], [address] Mary Anne Potter MD Notes/Report: FSH 8.3 1.4-12.8 mIU/mL N INSULIN Reviewed date:06/18/2024 01:24:34 PM Interpretation: Performing Lab:[facility]IE [facility], [address] [place], [address] Mary Anne Potter MD Notes/Report: Reference Range < or = 18.4 Risk: Optimal < or = 18.4 Moderate NA High >18.4 Adult cardiovascular event risk category cut points (optimal, moderate, high) are based on Insulin Reference Interval studies performed at [facility] in 2021. INSULIN 13.8 N LH Reviewed date:06/18/2024 01:24:34 PM Interpretation: Performing Lab:[facility]IE [facility], [address] [place], [address] Mary Anne Potter MD Notes/Report: LH 7.8 1.5-9.3 mIU/mL N VITAMIN B12/FOLATE, SERUM PA MARIA T Reviewed date:06/18/2024 01:24:34 PM Interpretation: Performing Lab:[facility]IE [facility], [address], [place], [address] Mary Anne Potter MD Notes/Report: Reference Range Low: <3.4 Borderline: 3.4-5.4 Normal: >5.4 VITAMIN B12 309 206-2686 pg/mL N FOLATE, SERUM 21.6 N PROLACTIN Reviewed date:06/18/2024 01:24:34 PM Interpretation: Performing Lab:[place], [facility], [address], [place], [address] Mary Anne Potter MD Notes/Report: PROLACTIN 6.1 2.0-18.0 ng/mL N LIPID PANEL Reviewed date:06/18/2024 01:24:34 PM Interpretation: Performing Lab:[facility], [address], [place], [address] Mary Anne Potter Notes/Report: Reference range: <100 Desirable range <100 mg/dL for primary prevention; <70 mg/dL for patients with CHD or diabetic patients with > or = 2 CHD risk factors. LDL-C is now calculated using the Dwaine-Yolanda calculation, which is a validated novel method providing better accuracy than the Friedewald equation in the estimation of LDL-C. Dwaine SS et al. VISHAL. 2013;310(19): 4002-9005 (http://education.GeoPay.Equifax/faq/SPN761) For patients with diabetes plus 1 major ASCVD risk factor, treating to a non-HDL-C goal of <100 mg/dL (LDL-C of <70 mg/dL) is considered a therapeutic option. CHOLESTEROL, TOTAL 224 <200 mg/dL H HDL CHOLESTEROL 58 > OR = 40 mg/dL N TRIGLYCERIDES 132 <150 mg/dL N LDL-CHOLESTEROL 140 H CHOL/HDLC RATIO 3.9 <5.0 (calc) N NON HDL CHOLESTEROL 166 <130 mg/dL (calc) H Reason For Referral No Information Medications Medication SIG (Take, Route, Frequency, Duration) Notes Start Date End Date Status dexAMETHasone 1 MG Tablet 1 tablet Orally at 10 pm night before 8 am cortisol; Duration: 1 days 05/25/2024 Active Lisinopril 20 MG Tablet 1 tablet Orally Once a day Active Fenofibrate 54 MG Tablet 1 tablet with f ood Orally Once a day Active Mirtazapine 15 MG Tablet 1 tablet at bed time Orally Once a day Active clomiPRAMINE HCl 50 MG Capsule 1 capsule at bedtime Orally Once a day taken for OCD Active Aspirin 325 MG Tablet 1 tablet Orally On ce a day Active Omeprazole 40 MG Capsule Delayed Release 1 capsule 1/2 to 1 hour before morning meal Orally Once a day Active Simvastatin 20 MG Tablet 1 tablet in the evening Orally Once a day Active KlonoPIN 1 MG Tablet 1 tablet Orally Onc e a day twice daily Active Carvedilol 12.5 MG Tablet 1 tablet with food Orally Twice a day Active Problems Problem Type SNOMED Code ICD Code Onset Dates Problem Status W/U Status Risk Notes Problem Obesity (917689679) Obesity, unspecified (E66.9) Active confirmed Problem Generalized anxiety disorder (34274450) Generalized anxiety disorder (F41.1) Active confirmed Problem Insomnia (176395163) Insomnia due to medical condition (G47.01) Active confirmed Problem Obstructive sleep apnea (37416949) Obstructive sleep apnea (G47.33) Active confirmed Vital Signs Heart Rate 80 /min 06/29/2024 Respiratory Rate 12 /min 06/29/2024 Blood pressure diastolic 82 mm Hg 06/29/2024 Weight-kg 113.4 kg 06/29/2024 Height 74 in 06/29/2024 Blood pressure systolic 132 mm Hg 06/29/2024 Weight 250 lbs 06/29/2024 BMI 32.09 kg/m2 06/29/2024 Encounters Encounter Location Date Provider Diagnosis [facility] Dr[facility] Polk [address] [place] [phone] 05/25/2024 Lis Polk Obesity, unspecified E66.9 ; Abnormal weight gain R63.5 ; Generalized anxiety disorder F41.1 ; Insomnia due to medical condition G47.01 and Encounter for screening for lipoid disorders Z13.[address] Polk [address] [place] [phone] 06/29/2024 Lis Polk Obesity, unspecified E66.9 ; Generalized anxiety disorder F41.1 ; Insomnia due to medical condition G47.01 and Obstructive sleep apnea G47.[address] [address] 05/25/2024 Lis Polk [address] [place] [phone] 06/11/[address] Polk [address] [place] [phone] 08/24/2024 Lis Wood [facility] [address] [place] [address] 08/26/2024 Lis ALTMAN [address] [address] 08/31/2024 Lis Polk [address] [place] [address] 09/09/2024 Lis Polk Assessments Encounter Date Diagnosis (ICD Code) Assessment Notes Treatment Notes Treatment Clinical Notes Section Notes 05/25/2024 Obesity, unspecified (ICD-10 - E66.9) 05/25/2024 Abnormal weight gain (ICD-10 - R63.5) 06/29/2024 Obesity, unspecified (ICD-10 - E66.9) 06/29/2024 Generalized anxiety disorder (ICD-10 - F41.1) 06/29/2024 Insomnia due to medical condition (ICD-10 - G47.01) 05/25/2024 Generalized anxiety disorder (ICD-10 - F41.1) 05/25/2024 Insomnia due to medical condition (ICD-10 - G47.01) 06/29/2024 Obstructive sleep apnea (ICD-10 - G47.33) 05/25/2024 Encounter for screening for lipoid disorders [...] Insomnia- Persist with current sleep aids, including dnwr-[id number]-[id number] options, Mirtazapine 15 mg, and Acetaminophen- Evaluate [...] for blood work and dexamethasone prescription to [facility]- Provide explicit instructions for lab tests, ensuring tests are conducted separately and at least 3-4 days apart to prevent inaccurate results Spent 45 minutes preparing to see the patient (ex review of tests/chart), obtaining and / or reviewing separately obtained history, performing a medically appropriate examination and/or evaluation, counseling and educating the patient/family/caregiver, ordering medications, tests, or procedures, referring and communicating with other health patient care technician instructor, documenting clinical information in the electronic or other health record, independently interpreting results and communicating results to the patient/family/caregiver and care coordinating patient plan. Patient alert [...] were discussed and all questions were answered. 06/29/2024 Other Assessment and Plan: Suspected HypercortisolismPatient presents with borderline cortisol level of 1.6, close to the positive threshold of 1.8, and symptoms indicative of hypercortisolism such as weight gain, high blood pressure, high cholesterol, sleep disturbances, and a family history of cardiovascular disease. DHEAS is slightly elevated.Await pending lab results, including ACTH levelConsider imaging of pituitary or adrenal glands if ACTH is very lowSchedule a repeat DHEAS test in the futureOrder a sleep study to rule out sleep apneaRepeat cortisol testing if sleep study results are normalSchedule an in-person follow-up in 6-8 weeks for a physical examination HyperlipidemiaPatient has high cholesterol with elevated LDL levels, though there has been some improvement since February. HDL is nearly 60, with a family history of heart disease and stroke.Continue current managementMonitor lipid levels HypertensionPatient reports high blood pressure and has a family history of hypertension. Suspected hypercortisolism and possible undiagnosed sleep apnea may be exacerbating factors.Continue current managementReassess after sleep study and cortisol evaluation ObesityPatient's current weight is 250 lbs at a height of 6'4, with a recent 5 lb weight gain. The ideal weight range is estimated at 220-230 lbs. This weight gain may be contributing to other health issues and increasing the risk of sleep apnea.Encourage diet modification and exercise (when medically cleared post-surgery) Labrum TearPatient sustained a labrum tear from overextension while crossing a [place]. Hip surgery is scheduled for the coming Saturday.Proceed with scheduled hip surgeryFollow post-operative instructions, including 45-degree positioning for 6 weeksInitiate physical therapy as prescribed post-surgery Follow-up:Schedule follow-up appointments as necessary to review lab results, assess the response to interventions, and after the completion of the sleep study and cortisol evaluation. Encourage the patient to contact the clinic if any new or worsening symptoms occur. Spent 25 minutes preparing to see the patient (ex review of tests/chart), obtaining and / or reviewing separately obtained history, performing a medically appropriate examination and/or evaluation, counseling and educating the patient/family/caregiver, ordering medications, tests, or procedures, referring and communicating with other health patient care technician instructor, documenting clinical information in the electronic or other health record, independently interpreting results and communicating results to the patient/family/caregiver and care coordinating patient plan. Patient alert and oriented x 4 and aware of discussion noted above and in agreeance to plan in management of obesity, anxiety/insomnia and concern for underlying hypercortisolism (need to rule out CEZAR and treat as untreated CEZAR can lead to false positive cortisol elevation). Due to the nature of telemedicine, the [...] all questions were answered. Plan Of Treatment Pending Test Test Name Order Date Sleep Study ResMed [id number] 06/29/2024 Insurance Providers Payer Name Payer Address Payer Phone Subscriber Number Group Number Insured Name Patient Relationship to Insured Coverage Start Date Coverage End Date [facility] NIRMAL [address] [place] [id number] [place] [id number] Soy Bucio Self - patient is the insured Medical (General) History Medical History History ICD Code hypertension obesity insomnia generalized anxiety
--- OUTSIDE RECORDS SUMMARY | 2024-12-10 09:18 | XMS_ITS | Clinical Summary ---
Author Organization [facility] Address [address] [place] [address] Care Team Providers Care Pharmacist Per Diem Name Role Phone Cam Joseph MD Unavailable [phone] Bryson Samuels DO Unavailable Bryson Samuels DO Primary Care Provider [phone] Allergies No known active allergies Medications clonazePAM [...] CAPSULE BY MOUTH WEEKLY. MAX DAILY DOSE: 54714 UNITS Active dextroamphetam ine-amphetamin e XR (ADDERALL XR) 20 mg 24 hr capsule TAKE 1 CAPSULE BY MOUTH EVERY DAY. MAX DAILY DOSE: 20 5 Active oxyCODONE (ROXICODONE) 5 mg immediate release tabletIndicati ons:Pain Take 1 tablet (5 mg total) by mouth every 4 (four) hours as needed for pain 30 tablet 5 Active Active Problems Problem Noted Date Diagnosed [...] - 12/07/2024 11:59 PM CDT Hospital Encounter [facility] [address] [place] [phone] Arrived Discharge Disposition: Discharge to home or self care 11/11/2024 11:30 AM CDT Office Visit [facility] Orth[facility] Building [address] [place] [phone] Angelica King MD Pain of right hip (Primary Dx); Right hip pain; Orthopedic aftercare from Last 3 Months Surgical History Surgery [...] on file Legal Sex Male 2:02 AM ALLERGIST/IMMUNOLOGIST Gender Identity Not on file Sexual Orientation Not on file Obstetrics History Last Filed Vital Signs Vital Sign Reading Time Taken Comments Blood Pressure 155/69 07/06/2024 2:50 PM ALLERGIST/IMMUNOLOGIST Pulse 62 07/06/2024 3:00 PM ALLERGIST/IMMUNOLOGIST Temperature 36.9 C (98.4 F) 07/06/2024 3:00 PM ALLERGIST/IMMUNOLOGIST Respiratory Rate 22 07/06/2024 3:00 PM ALLERGIST/IMMUNOLOGIST Oxygen Saturation 92% 07/06/2024 3:00 PM ALLERGIST/IMMUNOLOGIST Inhaled Oxygen Concentration - - Weight 118.4 kg (261 lb) 07/06/2024 11:37 AM ALLERGIST/IMMUNOLOGIST Height 193 cm (6' 3.98) 07/06/2024 11:37 AM ALLERGIST/IMMUNOLOGIST Body Mass Index 31.78 07/06/2024 11:37 AM ALLERGIST/IMMUNOLOGIST Plan of Treatment Health Maintenance Due Date Last Done Comments Colon Cancer Screening-Colonoscopy 1971 Depression Screening 1971 Hepatitis C Screening 1971 Prostate Cancer Screening-PSA 1971 DTaP/Tdap/Td Vaccine (1 - Tdap) 1982 Hepatitis B Screening 1989 Regular Well Visit/Exam 18-64 1989 Pneumococcal vaccine <65 (1 of 2 - PCV) 1990 Lung Cancer Screening 2021 Zoster Vaccine (1 of 2) 2021 Covid-19 Vaccine (4 - 2024-25 season) 2024 06/05/2021, 08/29/2020, 08/01/2020 Influenza Vaccine (#1) 2025 Medical Devices Implanted Type Area Stockroom Selector Device Identifier Shelf Expiration Date Model / Serial / Lot [place] Suture 4.75mm Mo-6 Alphavent Taper Biocompos 2 Implanted:Qty : 1 on 07/06/2024 at [facility] Other - see comments Right: Hip [place] 02/03/2025 3910-847- 120 / / [id number] [employer] Suture 4.75mm Mo-6 Alphavent Taper Biocompos 2 Implanted:Qty : 1 on 07/06/2024 at [facility] Other - see comments Right: Hip [place] 01/16/2025 3910-847- 120 / / [id number] [facility] Charlotte Suture Alphavent Knotless Sp 4.75mm Peek Sterile 7367-197-953 - [id number] Implanted:Qty : 1 on 07/06/2024 at [facility] Right: Hip [facility] 03/23/2026 3911-956- 547 / / [id number] [facility] Charlotte Suture Alphavent Knotless Sp 4.75mm Peek Sterile [id number] - [id number] Implanted:Qty : 1 on 07/06/2024 at [facility] Right: Hip [facility] 03/23/2026 3911-956- 547 / / [id number] Procedures Procedure Name Priority Date/Time Associated Diagnosis Comments MR BODY OUTSIDE REFERENCE Routine 12/07/2024 10:21 AM CDT from Last 3 Months Results * MR Body Outside Reference (12/07/2024 10:21 AM CDT) Impressions [facility] - 12/07/2024 10:21 AM CDT These images are for Reference purposes only and have not been reviewed by [facility]iology. There will be no report generated by a [facility] Radiologist. Narrative [facility]PACS[facility] - 12/07/2024 10:21 AM CDT EXAMINATION: Images For Reference Purposes Only us Angelica Quan MD IMG MRI PROCEDURES Fi nal Result RAD_PACS_[facility] from Last 3 Months Insurance DipJar AL DipJar AL Care Teams Pharmacist Per Diem Relationship Specialty Start Date End Date Bryson Samuels DO [address] [facility] [address] [place] [address] PCP - General Internal Medicine 06/25/24 Cam Joseph MD [address] [facility] [address] [place] [address] Internal Medicine 10/12/20 Bryson Samuels DO [address] [facility] [address] [place] [address] Referring Physician Internal Medicine 09/24/23
--- OUTSIDE RECORDS SUMMARY | 2024-12-10 09:18 | XMS_ITS | Clinical Summary ---
Author Organization [facility] Address [address] [place] [address] Care Team Providers Care Treating Machine Operator Name Role Phone Unavailable Primary Care Provider [...]
--- NOTE | 2025-01-05 09:36 | WPDSLEEPSTUD ---
Sleep Study Date of Study: 12/10/24 Ordering Provider: Moo Myers APRN Interpreting Physician: Kary Rodriguez DO Sleep Study Type: Split Polysomnogram Height: 1.93 m Weight: 113.398 kg Body Mass Index: 30.4 Neck Circumference (inches): 17.5 [place]: 12 Reason for Sleep Study Daytime hypersomnia Sleep History The patient is a 54-year-old male that had a sleep study ordered by his primary care for evaluation of sleep apnea. The patient admits to snoring loudly, trouble falling asleep, trouble staying asleep, and unwanted behaviors during sleep. The patient does have interruptions in breathing while asleep. He denies choking or gasping at night. He denies having trouble breathing on his back. He denies morning headaches. He does have a dry or sore mouth/throat in the morning. He denies nocturnal heartburn. He denies nocturia. He denies having difficulty returning to sleep if he wakes up throughout the night. He does use hypnotics or sedatives. He does feel anxious about sleep. He does feel tired or sleepy during the day. He does feel tired in the morning. He does have the urge to fall asleep during the day. He denies feeling drowsy while driving. He denies sleep paralysis, cataplexy, and hypnagogic/hypnopompic hallucinations. He does clench or grind his teeth. He denies kicking or jerking his legs excessively. He denies having a restless feeling in his legs. He goes to bed at 10 p.m. on workdays and at 11:30 p.m. on his days off. It takes him 45 minutes to fall asleep on workdays and 30 minutes on his days off. He gets 8 hours of sleep on his days off. His sleep is somewhat restorative on his days off. He does take planned naps in the afternoon that are less than 1 hour. His naps are restorative. He does act out his dreams. He does sleepwalk as an adult. He denies consuming any caffeinated beverages throughout the day. He consumes 2 alcoholic beverages 3-4 nights per week. He smokes 6-20 cigarettes per day. He denies exercising on a regular basis. [facility] Past Medical History Medical History History of pulmonary embolism Anxiety disorder, unspecified Essential (primary) hypertension Pure hypercholesterolemia, unspecified Surgical History Surgical History S/P pilonidal cyst excision 03/09/24 Dr. Bowden Hx of umbilical hernia repair Open umbilical hernia repair on 10/17/22. Family History Family History Father Cerebrovascular accident Patient's father is Family history of aortic aneurysm Mother Patient's mother is Sibling Hypertension Social History Social History Smoking packs per day: 0.5 Smoking cigarettes per day: 10.0 Years smoked: 35 Smoking pack-years: 17.50 Smoking status: Former smoker Tobacco type: cigarettes Second hand tobacco smoke exposure: No Smoking end date: 05/20/10 Alcohol intake: current Drinks per week: 6 Substance use: never Substance use type: does not use Do You Feel Safe in your Home?: Yes Lack of Transportation: No Lack of Food: Never True Current Housing: I Have Housing Concerned About Future Housing: No Difficulty Paying Gas/Electric Bills: No Difficulty Paying for Meds: No Currently Unemployed: No Education: Bachelor's Degree Difficulty w/ Childcare or Family Care: No Living arrangements: with family Occupation/Education: occupation 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[employer] Gender identity (if verbalized by the patient): Male Spiritual care concerns: No Medications Home Medications ?Medication ?Instructions ?Recorded ?Confirmed ?Type aspirin 325 mg tablet 325 mg PO DAILY 10/11/22 05/02/24 History gabapentin 300 mg capsule 300 mg PO QHS #30 caps 04/20/24 05/02/24 Rx clonazepam 1 mg tablet (Klonopin) 1 mg PO DAILY #90 tabs 06/09/24 Rx omeprazole 40 mg capsule,delayed See Rx Instructions .Route 07/31/24 Rx release .COMPLEX #90 caps carvedilol 12.5 mg tablet 12.5 mg PO Q12H #180 tabs 09/02/24 Rx lisinopril 20 mg tablet See Rx Instructions .Route 09/28/24 Rx .COMPLEX #90 tabs fenofibrate 54 mg tablet See Rx Instructions .Route 12/01/24 Rx .COMPLEX #90 tabs mirtazapine 15 mg tablet (Remeron) 15 mg PO HS #90 tabs 12/01/24 Rx triamcinolone acetonide 0.1 % 1 applic dental TID #5 grams 12/11/24 Rx dental paste simvastatin 20 mg tablet See Rx Instructions .Route 01/04/25 Rx .COMPLEX #90 tabs Sleep Procedure A full night split study using the [employer] multi-channel system recorded the standard physiologic parameters including EEG, EOG, submentalis EMG, anterior tibialis EMG, EKG, body position, nasal and oral airflow using nasal pressure sensor and thermistor.? Respiratory parameters of chest and abdominal movements were recorded with Respiratory Inductance Plethysmography belts. Oxygen saturation was recorded by pulse oximetry. Video monitoring was also performed. Sleep stages, periodic limb movements, and EEG arousals were scored in 30 second epochs according to the criteria of the AASM Scoring Manual. The Apnea-Hypopnea Index was calculated using CMS guidelines for definition of hypopnea with 4% O2 desaturations while scoring respiratory events. Sleep Architecture During the diagnostic portion of the study, the total recording time was 213.4 minutes. The total sleep time was 127.5 minutes. Sleep latency was 60.4 minutes.? REM sleep was not achieved during this portion of the study. Sleep Efficiency was 59.7%. The patient had 25 awakenings for an awakening index of 11.8. Wake after sleep onset time was 25.5 minutes. The patient spent 14.5 minutes, 11.4% of total sleep time in Stage N1. The patient spent 113.0 minutes, 88.6% in Stage N2. The patient spent 0.0 minutes, 0.0% in Stage N3. The patient spent 0.0 minutes, 0.0% in Stage REM sleep. At 01:17:07 AM the patient was placed on PAP treatment and was titrated at pressures ranging from 5 cm H20 up to 10 cm H20. During the treatment portion of the study, the total recording time was 260.0 minutes.? The total sleep time was 228.0 minutes. Sleep latency was 12.0 minutes. REM latency was 105.0 minutes. Sleep Efficiency was 87.7%. Wake after Sleep Onset time was 20.0 minutes. The patient spent 21.5 minutes, 9.4% of total sleep time in Stage N1. The patient spent 160.0 minutes, 70.2% in Stage N2. The patient spent 0.0 minutes, 0.0% in Stage N3. The patient spent 46.5 minutes, 20.4% in Stage REM. REM without atonia was not present during this study. Respiratory Analysis During the diagnostic portion of the study, the patient had 76 hypopneas and 2 obstructive apneas for an overall Apnea Hypopnea Index of 36.2 events per hour. The REM Apnea Hypopnea Index was 0. The NREM Apnea Hypopnea Index was 36.2. The patient had a Central Apnea Hypopnea Index of 0. There was no evidence of Blas-Wright Respirations. During the treatment portion of the study, the patient had 53 hypopneas for an overall Apnea Hypopnea Index of 13.9 events per hour. The REM Apnea Hypopnea Index was 2.6. The NREM Apnea Hypopnea Index was 16.9. The patient had a Central Apnea Hypopnea Index of 0. There was no evidence of Blas-Wright Respirations. The patient was started on CPAP 5 cm H2O and titrated to CPAP 10 cm H2O due to hypopneas. The patient was able to fall asleep starting on CPAP 5 cm H2O. The patient was able to achieve REM sleep starting on CPAP 10 cm H2O. The patient was able to achieve a residual AHI less than 5 with both NREM and REM sleep in the supine position on the final pressure setting. On CPAP 10 cm H2O, the patient spent 109 minutes in NREM and 46.5 minutes in REM with 4 hypopneas, resulting in an AHI of 1.5. The patient had a sleep efficiency of 93.1% on this pressure setting. Arousals During the diagnostic portion of the study, there were a total of 71 arousals for an arousal index of 33.4.? There were 23 respiratory arousals for an index of 10.8. There were 0 periodic limb movement arousals for an index of 0.? There were 0 isolated limb movement arousals for an index of 0. There were 48 spontaneous arousals for an index of 22.6. During the treatment portion of the study, there were a total of 90 arousals for an index of 23.7.? There were 24 respiratory arousals for an index of 6.3. There were 4 periodic limb movement arousals for an index of 1.1.? There were 0 isolated limb movement arousals for an index of 0. There were 62 spontaneous arousals for an index of 16.3. Periodic Limb Movements During the diagnostic portion of the study, the patient had 0 isolated limb movements with an index of 0. The patient had 0 periodic limb movements with an index of 0. The patient had a total of 0 limb movements with a total limb movement index of 0. During the treatment portion of the study, the patient had 3 isolated limb movements with an index of 0.8. The patient had 66 periodic limb movements with an index of 17.4, which is elevated (normal < 15). The patient had a total of 69 limb movements with a total limb movement index of 18.2. Oximetry Data During the diagnostic portion of the study, the patient had an average oxygen saturation of 93.9% in wake with a minimum oxygen saturation of 81% and a maximum oxygen saturation of 99%. The patient had an average oxygen saturation of 92.1% in sleep with a minimum oxygen saturation of 80.0% and a maximum oxygen saturation of 98.0%. The patient had 83 oxygen desaturations resulting in an Oxygen Desaturation Index of 39.5. The patient spent 8.4 minutes, 4.2% of total sleep time with an oxygen saturation less than 88%. During the treatment portion of the study, the patient had an average oxygen saturation of 94.1% in wake with a minimum oxygen saturation of 86.0% and a maximum oxygen saturation of 98.0%. The patient had an average oxygen saturation of 94.5% in sleep with a minimum oxygen saturation of 85.0% and a maximum oxygen saturation of 99.0%. The patient had 59 oxygen desaturations resulting in an Oxygen Desaturation Index of 15.5. The patient spent 2.4 minutes, 0.9% of total sleep time with an oxygen saturation less than 88%. Snoring Profile Moderate snoring was present in the diagnostic portion of the study. The snoring resolved once the patient was titrated to CPAP 9 cm H2O. Cardiac Profile The EKG lead showed normal sinus rhythm. No arrhythmias or premature beats were seen. During the diagnostic portion of the study, the average pulse rate was 70.7 bpm.? The minimum pulse rate was 65.0 bpm. The maximum pulse rate was 84.0 bpm. During the treatment portion of the study, the average pulse rate was 63.7 bpm.? The minimum pulse rate was 54.0 bpm. The maximum pulse rate was 78.0 bpm. EEG Profile No signs of seizure activity seen. Assessment and Plan Assessment and Plan (1) CZEAR (obstructive sleep apnea): Code(s): G47.33 - Obstructive sleep apnea (adult) (pediatric) Status: Acute Assessment and Plan: The patient had an overall AHI of 36.2 with desaturation down to 80%. This is consistent with severe sleep apnea. The patient was started on CPAP 5 cm H2O and titrated to CPAP 10 cm H2O due to hypopneas.The patient was able to achieve a residual AHI less than 5 with both NREM and REM sleep in the supine position on the final pressure setting with a high sleep efficiency. I recommend that the patient be prescribed CPAP 10 cm H2O, size large Resmed AirTouch F20 full face mask, CPAP filters/tubing and heated humidity. This should be used with all episodes of sleep.? Compliance should be reviewed within 31-90 days of starting therapy for usage greater than 4 hours per night greater than 70% of the nights. The patient should be asked about symptoms such as?excessive daytime sleepiness, quality of sleep, decreased nocturia, increased?mental functioning such as memory, mood, and concentration. Data The data obtained during this sleep study is adequate for interpretation. Certification This sleep study has been reviewed by a board certified sleep medicine physician.
[2025-01-05 09:37] VITALS: BMI 30.4
== END 2024-12-11 06:40 | disposition home or self-care (01) ==
LOC: ANHCSM 09:13
PROVIDERS: PCP Nurse Practitioner; Visit Provider Nurse Practitioner
DX: G47.33 Obstructive sleep apnea (adult) (pediatric) (principal); G47.10 Hypersomnia, unspecified; G47.52 REM sleep behavior disorder
CPT/HCPCS: 95811

== ENCOUNTER 2025-03-23 15:15 | Outpatient (CLI) | payer BC, SELFPAY ==
--- OUTSIDE RECORDS SUMMARY | 2024-06-29 08:20 | XMS_ITS ---
Author Organization [employer] [facility] Address [address] [place] [address] Care Team Providers Care Extension Supervisor Name Role Phone Lis Polk Primary Care Provider REASON FOR VISIT Lab Review/TEXT PLEASE Vital Signs Height 74 in 06/29/2024 Weight 250 lbs 06/29/2024 BMI 32.09 kg/m2 06/29/2024 Encounters Encounter Location Date Provider Diagnosis [facility], [facility] - Lis Polk [address] [place] [address] 06/29/2024 Lis Polk Plan Of Treatment No Information Progress Notes * Soy FRENCHDOB:[birth year] (55 yo M)Acc No.[id number]:06/29/2024 Progress Notes Patient: Soy ROWLAND Provider: Socrates Polk MD :1970 A ge:54 Y S ex:Male Date:06/29/2024 Address:[facility] [address] [facility] Subjective: * Chief Complaints: * 1 . Lab Review/TEXT PLEASE. * Medical History: Objective: * Vitals: H t: 74, Wt: 250, BMI: 32.09. Assessment: Plan: * Treatment: * Billing Information: * Visit Code: * Procedure Codes: * Electronic signature of Horacio Polk MD on 03/23/2025 at 04:35 PM TEST DIRECTOR Sign off status: Pending * Provider: Socrates Polk MD Date: 0 06/29/2024 Generated for Printi ng/Faxing/eTransmitting on: 1 05/23/2024 04:35 PM TEST DIRECTOR
--- OUTSIDE RECORDS SUMMARY | 2025-03-23 15:00 | XMS_ITS | Encounter Summary ---
Author Organization [facility] Address [address] [place] [address] Care Team Providers Care Senior Marketing Analyst Name Role Phone Moo Scott Primary Care Provider Reason for Visit * Reason Comments Establish Care Encounter Details Date Type Department Care Team (Late st Contact Info) Description 03/23/2025 3:00 PM TAKE AWAY MAN Office Visit [facility] Oncology and Hematology - [place] [address] [facility] [address] [place] [address] Bimal Walter MD [address] [facility] [address] [place] [address] Iron overload (Primary Dx); Erythrocytosis Social History Tobacco Use Types Packs/Day Years Used Date Smoking Tobacco: Former Cigarettes 1 30 1 05/23/1992 - 03/23/2023 Smokeless Tobacco: Never Tobacco Cessation:Counseling Given: Not Answered Alcohol Use Standard Drinks/Week Comments Yes 0 (1 standard drink = 0.6 oz pur e alcohol) Occasionally Sex and Gender Information Value Date Recorded Sex Assigned at Not on file Legal Sex Male 2:51 AM TAKE AWAY MAN Gender Identity Not on file Sexual Orientation Not on file documented as of this encounter Last Filed Vital Signs Vital Sign Reading Time Taken Comments Blood Pressure 136/91 03/23/2025 2:46 PM TAKE AWAY MAN Pulse 85 03/23/2025 2:43 PM TAKE AWAY MAN Temperature 36.7 C (98 F) 03/23/2025 2:43 PM TAKE AWAY MAN Respiratory Rate 16 03/23/2025 2:43 PM TAKE AWAY MAN Oxygen Saturation 93% 03/23/2025 2:43 PM TAKE AWAY MAN Inhaled Oxygen Concentration - - Weight 113.8 kg (250 lb 12.8 oz) 03/23/2025 2:43 PM TAKE AWAY MAN Height 193 cm (6' 4) 03/23/2025 2:43 PM TAKE AWAY MAN Body Mass Index 30.53 03/23/2025 2:43 PM TAKE AWAY MAN documented in this encounter Progress Notes * Bimal Walter MD - 03/23/2025 2:47 PM CST Hematology-oncology consult Note Requesting Physician Moo Scott, DO Primary Care Physician Moo Scott, DO Problem list Patient Active Problem List Diagnosis Code Secondary hypercoagulable state D68.69 Previous TREATMENT ? Measurable Disease ? Reason for Visit Soy Bucio is a 55 y.o. male who was referred for consultation for iron overload and erythrocytosis. History of present illness This is a pleasant 55-year-old male with history of unprovoked pulmonary embolism diagnosed in 2010 and then left greater saphenous vein superficial thrombophlebitis diagnosed in 2020. Workup revealed factor V Leiden heterozygous state and hyperhomocysteinemia. Patient has been taking aspirin and folic acid. He was seen by Dr. Lis Polk for erectile dysfunction and blood testing revealed elevated iron studies and erythrocytosis. He denies any chest pain and shortness of breath. Patient was also diagnosed with recently sleep apnea and has been using CPAP machine for the last 2 months duration. Patient has a history of smoking 1 pack/day but quit 5 years ago. Patient has a history of heavy drinking alcohol almost 16 drinks a day but now has been drinking just 2 drinks a day for the last 1 month duration. Labs from January 2025 showed elevated ferritin of 755 iron 281 iron saturation of 83%. Genetic testing for hemochromatosis came back negative. Patient denies any other newcomplaints. Past Medical History Past Medical History: Diagnosis Date Blood clot in vein Collapse of lung Hyperlipidemia Hypertension Surgical History Past Surgical History: Procedure Laterality Date HX HIP SURGERY HX TONSILLECTOMY Medications Current Outpatient Medications Medication Sig Dispense Refill carvediloL (COREG) 12.5 mg tablet Take 12.5 mg by mouth daily. DULoxetine (CYMBALTA) 60 mg Capsule, Delayed Release(E.C.) Take 60 mg by mouth daily. lisinopriL (PRINIVIL) 20 mg tablet Take 20 mg by mouth daily. naltrexone (DEPADE) 50 mg tablet Take 50 mg by mouth daily. omeprazole (PriLOSEC) 40 mg Capsule, Delayed Release(E.C.) Take 1 Capsule by mouth daily. Wegovy 0.5 mg/0.5 mL Pen Injector Inject 0.5 mg by subcutaneous injection every 7 days. aspirin (ECOTRIN EC) 81 mg Tablet, Delayed Release (E.C.) Take 81 mg by mouth. clonazePAM (KlonoPIN) 1 mg tablet Take 1 mg by mouth. fenofibrate (LOFIBRA) 54 mg Take 54 mg by mouth. mirtazapine (REMERON) 15 mg tablet Take 15 mg by mouth daily at bedtime. simvastatin (ZOCOR) 20 mg tablet Take 20 mg by mouth daily at bedtime. No current facility-administered medications for this visit. Allergies No Known Allergies Immunizations: There is no immunization history on file for this patient. Family History Family History Problem Relation Name Age of Onset No Known Problems Father Breast Cancer Mother No Known Problems Sister No Known Problems Son Social History Social History Tobacco Use Smoking status: Former Current packs/day: 0.00 Average packs/day: 1 pack/day for 30.0 years (30.0 ttl pk-yrs) Types: Cigarettes Start date: 03/23/1993 Quit date: 03/23/2023 Years since quittin.0 Smokeless tobacco: Never Substance Use Topics Alcohol use: Yes Comment: Occasionally Review of Systems Constitutional: Patient did not mention fever; no night sweats; no anorexia; no weight loss; no fatique NEENT: Patient did not mention headache; no change in vision; no change in hearing; no sore throat;no dysphagia Respiratory: Patient did not mention shortness of breath; no pleuritic chest pain; no cough; no hemoptysis Cardiac: Patient did not mention cardiac-like chest pain; no palpitations; no orthopnea; no PND; noDOE GI: Patient did not mention abdominal pain; no nausea; no vomiting; no diarrhea; no hematochezia; no melena : Patient did not mention dysuria; no frequency; no hesitancy; no hematuria SOLDERER ELECTRONIC: Musculosketetal: Patient did not mention bone pain; no arthralgia; no joint swelling; no myalgia; Skin: Patient did not mention pruritis; no rash; no petechiae; no ecchymoses Endocrine: Patient did not mention polydipsia; no polyuria; no unusual weight gain Neuro: Patient did not mention headache; no change in vision; no sensory changes; no muscle weakness; no confusion; no seizures Psych: Patient did not mention anxiety; no depression; Physical Exam Vitals: As per nursing note Constitutional: Well developed, well nourished, no acute distress, non-toxic appearance Teeth and gum. No signs of infection or swelling. Eyes: PERRL, conjunctiva normal HEENT: Atraumatic, external ears normal, nose normal, oropharynx moist, no pharyngeal exudates. no sinus tenderness Neck- normal range of motion, no tenderness, supple Respiratory: No respiratory distress, normal breath sounds, no rales, no wheezing Cardiovascular: Normal rate, normal rhythm, no murmurs, no gallops, no rubs GI: Soft, nondistended, normal bowel sounds, nontender, no splenomegaly, no hepatomegaly, no mass, no rebound, no guarding : No costovertebral angle tenderness Musculoskeletal: No edema, no tenderness, no deformities. Back- no tenderness Integument: Well hydrated, no rash, Digits and nails inspection normal Lymphatic: No lymphadenopathy noted Neurologic: Alert & oriented x 3, CN 2-12 normal, normal motor function, normal sensory function, no focal deficits noted Psychiatric: Speech and behavior appropriate ? labs No results found for this or any previous visit (from the past 24 hours). Labs from January 2025 showed AST 83 ALT 85 iron 281 saturation 83% ferritin 755 WBC 9.3 hemoglobin 15.7 hematocrit 47.8 platelet 184,000 Pathology ? Imaging & Other Studies Performance Status? Assessment / Plan: ? Iron overload. Genetic testing for hemochromatosis was negative. Patient has a history of hypercoagulable state with unprovoked pulmonary embolism diagnosed in June 2010 and then unprovoked left superficial thrombophlebitis diagnosed in July 2020. Workup revealed at that time factor V Leiden heterozygous state and MTHFR mutation. Patient is on aspirin. Iron overload is secondary to heavy alco hol consumption. He drinks 2 drinks a day but previously used to drink 16 drinks a day. He is also taking multivitamin with iron which we will discontinue today. I recommended further reducing alcohol consumption and avoiding any iron containing food and supplements. We will repeat labs today and decide about phlebotomy based on the repeat labs. Our goal is to keep iron saturation less than 50% and ferritin of less than 200. I have discussed the complication of iron overload in detail. I have answered all the questions to patient's satisfaction. Follow-up in 1 week. Erythrocytosis. Patient has a history of smoking but quit previously. He was diagnosed with sleep apnea 2 months ago and currently using CPAP machine. Will check erythropoietin level and decide aboutphlebotomy to keep hematocrit less than 50%. He is already taking aspirin. Hypercoagulable state. Patient has a history of unprovoked pulmonary embolism diagnosed in June2010 and then unprovoked left superficial thrombophlebitis in July 2020. Previous workup showed factor V Leiden heterozygous state and hyperhomocysteinemia. He is already taking aspirin and folic acid. Erectile dysfunction. He will follow-up with manager administrative services and the primary care physician. Thank you very much for allowing me to participate in Soy Bucio's evaluation and management. Please feel free to contact if I can be of any further assistance in your patient???s care requiring hematology or oncology evaluation. Sincerely, ? ? Bimal Walter M.D. cell TOBACCO COUNSELING He is not a tobacco/nicotine user. Bimal Walter MD ,03/23/2025 3:27 PM ? Total time spent 60 minutes, two third of the total time spent counseling patient [id number]. CC:?Moo Scott, DO AWAY MAN documented in this encounter Plan of Treatment Upcoming Encounters Date Type Department Care Team (Late st Contact Info) Description 04/07/2025 4:30 PM TAKE AWAY MAN Telephone Check Up [facility] Oncology and Hematology - [place] [address] [place] [address] Lorena Foster MD [address] [place] [address] Scheduled Orders Name Type Priority Associated Diagnoses Orde r Schedule CBC WITH DIFFERENTIAL Lab Stat Iron overload Expected: 03/23/2025, Expires: 03/23/2026 COMPREHENSIVE METABOLIC PANEL Lab Stat Iron overload Expected: 03/23/2025, Expires: 03/23/2026 ERYTHROPOIETIN LEVEL Lab Routine Erythrocytosis Expected: 03/23/2025, Expires: 03/23/2026 FERRITIN Lab Routine Iron overload Expected: 03/23/2025, Expires: 03/23/2026 IRON, TIBC, AND PERCENT SATURATION Lab Routine Iron overload Expected: 03/23/2025, Expires: 03/23/2026 documented as of this encounter Visit Diagnoses Diagnosis Iron overload- Primary Other disorders of iron metabolism Erythrocytosis Reserved for inherently not codable concepts WITHOUT codable children documented in this encounter Care Teams Senior Marketing Analyst Relationship Specialty Start Date End Date Moo Scott DO [facility] [address] [address] PCP - General Internal Medicine 03/23/25 documented as of this encounter
[2025-03-23 15:27] LABS: Hematocrit 45.6 % (42.0-52.0); Hemoglobin 15.1 g/dL (14.0-18.0); Immature Granulocyte Percent A 0.6 % (0-0.5); Lymphocytes Absolute Auto 1.76 K/mm3 (0.9-3.2); Mean Corpuscular HGB Conc 33.1 g/dl (32-36); Mean Corpuscular Hemoglobin 30.8 pg (26-34); Mean Corpuscular Volume 92.9 fl (80-100); Nucleated Red Blood Cells Absolute Auto 0.000 K/mm3 (0.0-0.012); Nucleated Red Blood Cells Perc 0.0 % (0.0-0.2); Platelet Count Result 183 k/mm3 (150-375); Red Blood Count 4.91 M/mm3 (4.6-6.20); White Blood Count 7.3 K/mm3 (4.5-10.0)
--- OUTSIDE RECORDS SUMMARY | 2025-03-23 16:34 | XMS_ITS | Patient Health Record ---
Author Organization [facility] Address [address] [place] [address] Care Team Providers Care Cat Cracker Operator Name Role Phone Bryson Samuels DO Primary Care Provider Rodney Cedeno Unavailable [phone] Allergies No Known Allergies Reason For Referral No Information Medications Medication SIG (Take, Route, Frequency, Duration) Notes Start Date End Date Status clonazePAM 1 MG Tablet 1 tablet Oral thr ee times a day; Duration: 30 days 02/03/2024 Active Mirtazapine 15 MG Tablet 1 tablet at bed time Oral Once a day; Duration: 30 days Active Simvastatin 20 MG Tablet TAKE 1 TABLET B Y MOUTH DAILY Oral; Duration: 90 Days Active Trintellix 20 MG Tablet 1 tablet Orally Once a day; Duration: 30 days Active Fenofibrate 54 MG Tablet TAKE 1 TABLET B Y MOUTH EVERY DAY Oral; Duration: 90 Days Active Omeprazole 40 MG Capsule Delayed Release TAKE 1 CAPSULE BY MOUTH EVERY DAY Oral; Duration: 90 Days Active Lisinopril 20 MG Tablet TAKE 1 TABLET BY MOUTH DAILY Oral; Duration: 90 Days Active Social History Tobacco Use: Social History Observation Description Date Details (start date - stop date) Former Smoker NA - NA Sex Assigned At : Social History Observation Description Sex Assigned At Male Social History Drug/Alcohol: Social Info Question Answer Notes AUDIT-C (Standard) Did you have a drink containing alcohol in the past year? Yes How often did you have six or more drinks on one occasion in the past year? Never (0 point) Tobacco Use: Social Info Question Answer Notes Tobacco Control (Standard) Tobacco use: Former smoker Additional Details Category Social Info Options Details Migrated Social History Migrated Social History Alcohol Intake: Moderate 08/12/2023,Tobacco Years: Former smoker 08/12/2023,Smoking Status: 39 08/12/2023 Problems Problem Type SNOMED Code ICD Code Onset Dates Problem Status W/U Status Risk Notes Problem Alcohol dependence (59558387) Alcohol dependence, uncomplicated (F10.20) Active confirmed Problem Severe recurrent major depression without psychotic features (20479078) Major depressive disorder, recurrent severe without psychotic features (F33.2) Active confirmed Problem Generalized anxiety disorder (30762540) Generalized anxiety disorder (F41.1) Active confirmed Encounters Encounter Location Date Provider Diagnosis [facility] [address] [facility] [address] [facility] [address] [place] [address] 03/25/2024 Rodney Mcgregor [facility] [address] [facility] [address] [facility] [address] [place] [address] 03/25/2024 Rodney Mcgregor Plan Of Treatment No Information Insurance Providers Payer Name Payer Address Payer Phone Subscriber Number Group Number Insured Name Patient Relationship to Insured Coverage Start Date Coverage End Date [facility] [address] [place] [address] [id number] GERALDO FRENCH Self - patient is the insured Medical (General) History Medical History History ICD Code Problems: Alcohol dependence Complaining of erectile dysfunction Essential hypertension Generalized anxiety disorder Hyperglycemia Hyperlipidemia Severe recurrent major depression withou t psychotic features ,
--- OUTSIDE RECORDS SUMMARY | 2025-03-23 16:34 | XMS_ITS | Encounter Summary ---
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 Gender Identity Not on file Sexual Orientation Not on file documented as of this encounter Plan of Treatment Upcoming Encounters Date Type Department Care Team (Late st Contact Info) Description 04/07/2025 4:30 PM INSTRUCTOR WATCH ASSEMBLY Telephone Check Up [facility] [place] [address] [place] [address] Lorena Foster MD [address] [place] [address] documented as of this encounter Visit Diagnoses Not on filedocumented in this encounter Care Teams Systems Analysis Manager Relationship Specialty Start Date End Date Moo Scott DO [address] [facility] [address] [place] [address] PCP - General Internal Medicine 03/23/25 documented as of this encounter
--- OUTSIDE RECORDS SUMMARY | 2025-03-23 16:34 | XMS_ITS | Encounter Summary ---
Author Organization [facility] Address [address] [facility] Attn: Epic Prelude ADT NIRMAL SOARES [address] Care Team Providers Care Manager Simulation Name Role Phone Moo Scott DO Primary Care Provider Encounter Details Date Type Department Care Team (Late st Contact Info) Description 12/14/1993 Outpatient Historical Singh Fischer Social History Tobacco Use Types Packs/Day Years Used Date Smoking Tobacco: Never Assessed Sex and Gender Information Value Date Recorded Sex Assigned at Not on file Legal Sex Male 2:51 AM SECTION CHIEF Gender Identity Not on file Sexual Orientation Not on file documented as of this encounter Plan of Treatment Upcoming Encounters Date Type Department Care Team (Late st Contact Info) Description 04/07/2025 4:30 PM SECTION CHIEF Telephone Check Up [facility] - [place] [address] [place] [address] Lorena Foster MD [address] [place] [address] documented as of this encounter Visit Diagnoses Not on filedocumented in this encounter Care Teams Manager Simulation Relationship Specialty Start Date End Date Moo Scott DO [address] [facility] [address] [place] [address] PCP - General Internal Medicine 03/23/25 documented as of this encounter
--- OUTSIDE RECORDS SUMMARY | 2025-03-23 16:35 | XMS_ITS | Clinical Summary ---
Author Organization [facility] Address [facility] [place] [address] Care Team Providers Care Interlocking Pavement Installer Name Role Phone Unavailable Primary Care Provider Unavailabl e Encounters Date Type Department Care Team Description 02/25/2025 Scan [facility] Scanned, Doc Med Group from Last 3 Months Social History Tobacco Use Types Packs/Day Years [...] Vaccines (1 of 2) 2021 COVID-19 Vaccine (1 - 2024-2 6 season) 2025 Influenza Adult (#1) 2025 Hepatitis A Vaccines Aged Out No long er eligible based on patient's age to complete this topic Meningococcal B Vaccine Aged Out No l onger eligible based on patient's age to complete this topic Meningococcal Vaccine Aged Out No julianna cheyanne eligible based on patient's age to complete this topic RSV Immunizations Under 20 Months Aged Out No longer eligible based on patient's age to complete this topic
--- OUTSIDE RECORDS SUMMARY | 2025-03-23 16:35 | XMS_ITS | Clinical Summary ---
Author Organization [facility] Address [address] [place] [address] Care Team Providers Care Construction Area Manager Name Role Phone Cam Joseph MD Unavailable [phone] Bryson Samuels DO Unavailable Bryson Samuels DO Primary Care Provider [phone] Allergies No known active allergies Medications clonazePAM [...] surgery, and morning of surgery. 120 mL Active diazePAM (VALIUM) 5 mg tablet Take 1 tab every 8 hours as needed for muscle spasms 15 tablet Active acetaminophen (TYLENOL) 500 mg tablet Take 2 tablets (1,000 mg total) by mouth every 8 (eight) hours as needed for pain Do not exceed 4g acetaminophen in 24hrs 90 tablet Active sildenafiL (VIAGRA) 100 mg tablet TAKE 1 TABLET BY MOUTH DAILY NEEDED. MAX DAILY DOSE: 1 TABLET Active ergocalciferol (VITAMIN D) 50,000 unit capsule TAKE 1 CAPSULE BY MOUTH WEEKLY. MAX DAILY DOSE: 21340 UNITS Active dextroamphetam ine-amphetamin e XR (ADDERALL XR) 20 mg 24 hr capsule TAKE 1 CAPSULE BY MOUTH EVERY DAY. MAX DAILY DOSE: 20 5 Active Active Problems Problem Noted Date Diagnosed Date Means esophagus 01/06/2025 Cigarette smoker 01/06/2025 Dysphagia 01/06/2025 Elevated LFTs 01/06/2025 Hip pain 01/06/2025 Hyperglycemia 01/06/2025 Leg pain, bilateral 01/06/2025 Lower extremity edema 01/06/2025 Obesity, Class I, BMI 30-34.9 01/06/2025 Umbilical hernia 01/06/2025 Pilonidal cyst without abscess 01/06/2025 Wound cellulitis after surgery 01/06/2025 Alcohol dependence 11/11/2024 Severe recurrent major depre [...] Encounters Date Type Department Care Team Description 01/06/2025 10:15 AM CDT Office Visit [facility] Medicine Orthopaedic Surgery [address] [facility] [address] [place] [id number] Angelica King MD Pain of right hip (Primary Dx) from Last 3 Months Surgical History Surgery Date Site/Laterality Comments OTHER SURGICAL HISTORY 05/20/2014 - 05/19/2015 Right lung collapsed chest tube ESOPHAGOGASTRODUODENOSCOPY 05/20/2020 - 05/19/2021 Medical History Medical History Date Comments Pulmonary embolism HTN (hypertension) Hyperglycemia Dysphagia Anxiety Broken ankle r PE (pulmonary thromboembolism) Family History Medical History Relation Name Comments Aortic aneurysm Father Heart attack Father No Known Problems Mother Relation Name Status Comments Father Mother Social History Tobacco Use Types Packs/Day Years Used Date Smoking Tobacco: Some Days Cigarettes 1 25.8 Started: 06/15/1999 Smokeless Tobacco: Never Tobacco Cessation:Ready [...] on file Legal Sex Male 2:02 AM ESTHETICIAN/SKIN THERAPIST Gender Identity Not on file Sexual Orientation Not on file Last Filed Vital Signs Vital Sign Reading Time Taken Comments Blood Pressure 155/69 07/06/2024 2:50 PM ESTHETICIAN/SKIN THERAPIST Pulse 62 07/06/2024 3:00 PM ESTHETICIAN/SKIN THERAPIST Temperature 36.9 C (98.4 F) 07/06/2024 3:00 PM ESTHETICIAN/SKIN THERAPIST Respiratory Rate 22 07/06/2024 3:00 PM ESTHETICIAN/SKIN THERAPIST Oxygen Saturation 92% 07/06/2024 3:00 PM ESTHETICIAN/SKIN THERAPIST Inhaled Oxygen Concentration - - Weight 118.4 kg (261 lb) 07/06/2024 11:37 AM ESTHETICIAN/SKIN THERAPIST Height 193 cm (6' 3.98) 07/06/2024 11:37 AM ESTHETICIAN/SKIN THERAPIST Body Mass Index 31.78 07/06/2024 11:37 AM ESTHETICIAN/SKIN THERAPIST Plan of Treatment Health Maintenance Due Date [...] 2) 2021 Covid-19 Vaccine (4 - season) 2025 06/05/2021, 08/29/2020, 08/01/2020 Influenza Vaccine (#1) 2025 Medical Devices Implanted Type Area Lapeler Device Identifier Shelf Expiration Date Model / Serial / Lot Worth Suture 4.75mm Mo-6 Alphavent Taper Biocompos 2 Implanted:Qty : 1 on 07/06/2024 at [facility] Other - see comments Right: Hip [place] 02/03/2025 3910-847- 120 / / [id number] Worth Suture 4.75mm Mo-6 Alphavent Taper Biocompos 2 Implanted:Qty : 1 on 07/06/2024 at [facility] Other - see comments Right: Hip Aditya 01/16/2025 3910-847- 120 / / [id number] [place] [facility] Worth Suture Alphavent Knotless Sp 4.75mm Peek Sterile [id number] - [id number] Implanted:Qty : 1 on 07/06/2024 at [facility] Right: Hip [facility] 03/23/2026 [facility]-956- 547 / / [id number] [place] [facility] Worth Suture Alphavent Knotless Sp 4.75mm Peek Sterile [id number] - [id number] Implanted:Qty : 1 on 07/06/2024 at [facility] Right: Hip [facility] 03/23/2026 [facility]-956- 547 / / [id number] Insurance [facility] Care Teams Construction Area Manager Relationship Specialty Start Date End Date Bryson Samuels DO [address] [place] [address] PCP - General Internal Medicine 06/25/24 Cam Joseph MD [address] [place], [place] [id number] Internal Medicine 10/12/20 Bryson Samuels DO [address] [place] [address] Referring Physician Internal Medicine 09/24/23
--- OUTSIDE RECORDS SUMMARY | 2025-03-23 16:35 | XMS_ITS | Patient Health Record ---
Author Organization [facility] Address [address] [place] [address] Care Team Providers Care Risk Assessment Analyst Name Role Phone Lis Polk Unavailable [phone] Allergies No Known Allergies Results Component Value Reference Range Flag Notes ACTH, PLASMA Reviewed date:06/18/2024 01:24:34 PM Interpretation: Performing Lab:Tabby DRISCOLL/[facility], [address], [place], [place], Dominick Diana M.D.,PhD Notes/Report: DHEA SULFATE Reviewed date:06/18/2024 01:24:34 PM Interpretation: Performing Lab:Tabby BROWN, [address] [place], [address] Mary Anne Potter MD Notes/Report: DHEA SULFATE 326 32-279 mcg/dL H FSH Reviewed date:06/18/2024 01:24:34 PM Interpretation: Performing Lab:Tabby BROWN, [place], [address] Mary Anne Potter MD Notes/Report: FSH 8.3 1.4-12.8 mIU/mL N INSULIN Reviewed date:06/18/2024 01:24:34 PM Interpretation: Performing Lab:Tabby BROWN [address], [place], [address] Mary Anne Potter MD Notes/Report: Reference Range < or = 18.4 Risk: Optimal < or = 18.4 Moderate NA High >18.4 Adult cardiovascular event risk category cut points (optimal, moderate, high) are based on Insulin Reference Interval studies performed at [facility] in 2021. INSULIN 13.8 N LH Reviewed date:06/18/2024 01:24:34 PM Interpretation: Performing Lab:Tabby BROWN, [address] [place], [address] Mary Anne Potter MD Notes/Report: LH 7.8 1.5-9.3 mIU/mL N VITAMIN B12/FOLATE, SERUM PA MARIA T Reviewed date:06/18/2024 01:24:34 PM Interpretation: Performing Lab:Tabby BROWN, [address] [place], [address] Mary Anne Potter MD Notes/Report: Reference Range Low: <3.4 Borderline: 3.4-5.4 Normal: >5.4 VITAMIN B12 355 021-2785 pg/mL N FOLATE, SERUM 21.6 N PROLACTIN Reviewed date:06/18/2024 01:24:34 PM Interpretation: Performing Lab:Tabby BROWN, [place], [address] Mary Anne Potter MD Notes/Report: PROLACTIN 6.1 2.0-18.0 ng/mL N LIPID PANEL Reviewed date:06/18/2024 01:24:34 PM Interpretation: Performing Lab:[facility], [address], [place], [address] Mary Anne Potter Notes/Report: Reference range: <100 For patients with diabetes plus 1 major ASCVD risk factor, treating to a non-HDL-C goal of <100 mg/dL Desirable range <100 mg/dL for primary prevention; (LDL-C of <70 mg/dL) is considered a therapeutic <70 mg/dL for patients with CHD or diabetic patients option. with > or = 2 CHD risk factors. LDL-C is now calculated using the Alvino calculation, which is a validated novel method providing better accuracy than the Friedewald equation in the estimation of LDL-C. Dwaine MITCHELL et al. VISHAL. 2013;310(19): 8987-3383 (http://education.Heverest.ru.Logisticare/faq/RGF471) CHOLESTEROL, TOTAL 224 <200 mg/dL H HDL CHOLESTEROL 58 > OR = 40 mg/dL N TRIGLYCERIDES 132 <150 mg/dL N LDL-CHOLESTEROL 140 H CHOL/HDLC RATIO 3.9 <5.0 (calc) N NON HDL CHOLESTEROL 166 <130 mg/dL (calc) H CORTISOL, TOTAL (367) Reviewed date:01/05/2025 08:37:11 PM Interpretation: Performing Lab:Tabby BROWN [facility], [place] Mary Anne Potter MD Notes/Report: FASTING:YES FASTING: YES CORTISOL, TOTAL 1.0 L * Please interpret above results accordingly * Reference Range: For 4 p.m.(3-5 p.m.) Specimen: 3.0-17.0 Reference Range: For 8 a.m.(7-9 a.m.) Specimen: 4.0-22.0 DEXAMETHASONE ([id number]) Reviewed date:01/14/2025 07:25:52 PM Interpretation: Performing Lab:Tabby THOMAS/[facility],[address] [facility] CenterCA[address] Mindy Bird MD,PhD,SEAN Notes/Report: FASTING:YES FASTING: YES DEXAMETHASONE 465 This test was developed and its analytical performance has been validated pursuant to the CLIA regulations and is characteristics have been determined by [facility]. Reference Ranges for Dexamethasone: used for clinical purposes. It has not been cleared or approved by the FDA. This assay Baseline: Less than 20 ng/dL 1 mg dexamethasone overnight: 180-550 ng/dL (8:00-10:00 AM) .COMPREHENSIVE METABOLIC BAHENA (11266) [facility] Reviewed date:01/07/2025 08:27:48 PM Interpretation: Performing Lab:Tabby [facility] [facility] HospitalZhfmljhOL[address] Mary Anne Potter Notes/Report: FASTING: YES FASTING:YES GLUCOSE 117 65-99 mg/dL H between 100 and 125 mg/dL is consistent with follow-up test. prediabetes and should be confirmed with a Fasting reference interval For someone without known diabetes, a glucose value UREA NITROGEN (BUN) 12 7-25 mg/dL N CREATININE 1.00 0.70-1.30 mg/dL N EGFR 90 > OR = 60 mL/min/1.73m2 N BUN/CREATININE RATIO SEE NOTE: 6-22 (calc) reference range. Not Reported: BUN and Creatinine are within SODIUM 139 135-146 mmol/L N POTASSIUM 4.6 3.5-5.3 mmol/L N CHLORIDE 100 98-110 mmol/L N CARBON DIOXIDE 29 20-32 mmol/L N CALCIUM 9.4 8.6-10.3 mg/dL N PROTEIN, TOTAL 7.1 6.1-8.1 g/dL N ALBUMIN 4.6 3.6-5.1 g/dL N GLOBULIN 2.5 1.9-3.7 g/dL (calc) N ALBUMIN/GLOBULIN RATIO 1.8 1.0-2.5 (calc) N BILIRUBIN, TOTAL 1.0 0.2-1.2 mg/dL N ALKALINE PHOSPHATASE 59 35-144 U/L N AST 104 10-35 U/L H ALT 114 9-46 U/L H .LIPID PANEL, STANDARD (7600 ) Reviewed date:01/07/2025 08:27:48 PM Interpretation: Performing Lab:HOLLI, [facility] Hospital[facility]qkxr[address] , [address] [facility] Notes/Report: FASTING:YES FASTING: YES CHOLESTEROL, TOTAL 231 <200 mg/dL H HDL CHOLESTEROL 59 > OR = 40 mg/dL N TRIGLYCERIDES 114 <150 mg/dL N LDL-CHOLESTEROL 149 H with > or = 2 CHD risk factors. Reference range: <100 Desirable range <100 mg/dL for primary prevention; (http://education.[employer]aceuticals/faq/DYV951) Dwaine MITCHELL et al. VISHAL. 2013;310(19): 6718-3076 estimation of LDL-C. better accuracy than the Friedewald equation in the <70 mg/dL for patients with CHD or diabetic patients calculation, which is a validated novel method providing LDL-C is now calculated using the Alvino CHOL/HDLC RATIO 3.9 <5.0 (calc) N NON HDL CHOLESTEROL 172 <130 mg/dL (calc) H factor, treating to a non-HDL-C goal of <100 mg/dL For patients with diabetes plus 1 major ASCVD risk (LDL-C of <70 mg/dL) is considered a therapeutic option. .CBC (INCLUDES DIFF/PLT) (63 99) Reviewed date:01/07/2025 08:27:48 PM Interpretation: Performing Lab:HOLLI [place] [address] [address] QuedvhdDR[address] [facility] Tariq Notes/Report: FASTING:YES FASTING: YES WHITE BLOOD CELL COUNT 6.5 3.8-10.8 Thousand/uL N RED BLOOD CELL COUNT 5.24 4.20-5.80 Million/uL N HEMOGLOBIN 17.3 13.2-17.1 g/dL H HEMATOCRIT 48.6 38.5-50.0 % N MCV 92.7 80.0-100.0 fL N MCH 33.0 27.0-33.0 pg N MCHC 35.6 32.0-36.0 g/dL N value (in the range of 30 to 32 g/dL) is most likely For adults, a slight decrease in the calculated MCHC condition. red cell parameters and the patient's clinical interpreted with caution in correlation with other not clinically significant; however, it should be RDW 12.1 11.0-15.0 % N PLATELET COUNT 195 140-400 Thousand/uL N MPV 8.9 7.5-12.5 fL N ABSOLUTE NEUTROPHILS 3933 6755-0181 cells/uL N ABSOLUTE LYMPHOCYTES 0862 226-3278 cells/uL N ABSOLUTE MONOCYTES 637 200-950 cells/uL N ABSOLUTE EOSINOPHILS 221 15-500 cells/uL N ABSOLUTE BASOPHILS 39 0-200 cells/uL N NEUTROPHILS 60.5 N LYMPHOCYTES 25.7 N MONOCYTES 9.8 N EOSINOPHILS 3.4 N BASOPHILS 0.6 N .HEMOGLOBIN A1c (496) Reviewed date:01/07/2025 08:27:48 PM Interpretation: Performing Lab:HOLLI [place] [address] [address] ClvuftaBX[address] [facility] Notes/Report: FASTING:YES FASTING: YES HEMOGLOBIN A1c 5.8 <5.7 % of total Hgb H A1c value between 5.7% and 6.4% is consistent with prediabetes and should be confirmed with a Currently, no consensus exists regarding use of indicates that their diabetes is well controlled. A1c This assay result is consistent with an increased risk diabetes, age, comorbid conditions, and other For someone with known diabetes, a value <7% follow-up test. For someone without known diabetes, a hemoglobin targets should be individualized based on duration of hemoglobin A1c for diagnosis of diabetes for children. of diabetes. considerations. INSULIN (561) Reviewed date:01/07/2025 08:27:48 PM Interpretation: Performing Lab:Tabby BROWN-Bernie Crooks, SqomubOX[address] Mary Anne Potter MD Notes/Report: FASTING:YES FASTING: YES INSULIN 13.2 N Risk: High >18.4 Adult cardiovascular event risk category studies performed at [facility] are based on Insulin Reference Interval Reference Range < or = 18.4 in 2021. cut points (optimal, moderate, high) Moderate NA Optimal < or = 18.4 VITAMIN B12/FOLATE, SERUM PA MARIA T (2293) Reviewed date:01/07/2025 08:27:48 PM Interpretation: Performing Lab:Tabby BROWN [place] Mary Anne Potter MD Notes/Report: FASTING:YES FASTING: YES VITAMIN B12 125 797-6568 pg/mL N FOLATE, SERUM 10.4 N Normal: >5.4 Low: <3.4 Reference Range Borderline: 3.4-5.4 T4, FREE (866) Reviewed date:01/07/2025 08:27:48 PM Interpretation: Performing Lab:HOLLI [employer] [facility] Nyasn[address] [address] [place] [address] HinaKatty Potter Notes/Report: FASTING:YES FASTING: YES T4, FREE 1.6 0.8-1.8 ng/dL N TSH (899) Reviewed date:01/07/2025 08:27:48 PM Interpretation: Performing Lab:HOLLI [facility] [id number] [place] [address] HinaJune Carmina Potter Notes/Report: FASTING: YES FASTING:YES TSH 1.88 0.40-4.50 mIU/L N .VITAMIN D,25-OH,TOTAL,IA (1 7306) Reviewed date:01/07/2025 08:27:48 PM Interpretation: Performing Lab:Tabby BROWN [place] Mary Anne Potter MD Notes/Report: FASTING:YES FASTING: YES VITAMIN D,25-OH,TOTAL,IA 42 30-100 ng/mL N educational purposes only.) Vitamin D Status 25-OH Vitamin D: For additional information, please refer to code 81923 (patients >2yrs). of D2 and D3 fractions is required, the [facility]() Note 1 Insufficiency: 20 - 29 ng/mL For 25-OH Vitamin D testing on patients on Optimal: > or = 30 ng/mL D2-supplementation and patients for whom quantitation http://education.swiftQueue/faq/TVM493 Deficiency: <20 ng/mL (This link is being provided for informational/ 25-OH VIT D, (D2,D3), LC/MS/MS is recommended: order See Note 1 TESTOSTERONE, FREE (DIALYSIS ) AND TOTAL,MS (73929) Reviewed date:01/13/2025 12:22:05 PM Interpretation: Performing Lab:Z3E, [facility]fs[address] [place] [address], [address], BwbfpislyyKZ[address] Mikayla Parker MD,PhD Notes/Report: FASTING:YES FASTING: YES TESTOSTERONE, TOTAL, MS 712 977-1261 ng/dL been validated pursuant to the CLIA regulations and is https://Starbelly.com.Ask.com/faq/KDW782 not been cleared or approved by the FDA. This assay has For additional information, please refer to (This link is being provided for informational/educational purposes only.) This test was developed and its analytical performance characteristics have been determined by [employer]. It has (Note) used for clinical purposes. TESTOSTERONE, FREE 49.8 35.0-155.0 pg/mL [facility] [address] Your request to have a duplicate copy faxed has been acknowledged. This test was developed and its analytical performance [address] [place] [address],[address] Queued to: [phone] been validated pursuant to the CLIA regulations and is Mikayla Parker MD, PhD characteristics have been determined by [employer]. It has (Note) [facility] not been cleared or approved by the FDA. This assay has [phone] used for clinical purposes. .COMPREHENSIVE METABOLIC BAHENA EL (69172) [facility] Reviewed date:01/22/2025 01:35:15 PM Interpretation: Performing Lab:HOLLI [facility] HospitalAtakp[address] [address] EabxmjiPR[address] Mary Anne Potter Notes/Report: FASTING:YES PRIOR AUTH REQUIRED, PATIENT ADVISED TO CONTACT PHYSICIAN. FASTING: YES GLUCOSE 107 65-99 mg/dL H prediabetes and should be confirmed with a follow-up test. For someone without known diabetes, a glucose value between 100 and 125 mg/dL is consistent with Fasting reference interval UREA NITROGEN (BUN) 22 7-25 mg/dL N CREATININE 1.05 0.70-1.30 mg/dL N EGFR 85 > OR = 60 mL/min/1.73m2 N BUN/CREATININE RATIO SEE NOTE: 6-22 (calc) reference range. Not Reported: BUN and Creatinine are within SODIUM 134 135-146 mmol/L L POTASSIUM 5.0 3.5-5.3 mmol/L N CHLORIDE 96 98-110 mmol/L L CARBON DIOXIDE 29 20-32 mmol/L N CALCIUM 9.8 8.6-10.3 mg/dL N PROTEIN, TOTAL 7.1 6.1-8.1 g/dL N ALBUMIN 4.6 3.6-5.1 g/dL N GLOBULIN 2.5 1.9-3.7 g/dL (calc) N ALBUMIN/GLOBULIN RATIO 1.8 1.0-2.5 (calc) N BILIRUBIN, TOTAL 1.2 0.2-1.2 mg/dL N ALKALINE PHOSPHATASE 62 35-144 U/L N AST 83 10-35 U/L H ALT 85 9-46 U/L H IRON AND TOTAL IRON BINDING CAPACITY (7573) Reviewed date:01/22/2025 01:35:15 PM Interpretation: Performing Lab:STEPHANIE [facility]-Hntxko72943 [facility], ZnvqmvUW[address] Mary Anne Potter MD Notes/Report: FASTING:YES PRIOR AUTH REQUIRED, PATIENT ADVISED TO CONTACT PHYSICIAN. FASTING: YES IRON, TOTAL 281 50-180 mcg/dL H IRON BINDING CAPACITY 337 250-425 mc g/dL (calc) N % SATURATION 83 20-48 % (calc) H .CBC (INCLUDES DIFF/PLT) (63 99) Reviewed date:01/22/2025 01:35:15 PM Interpretation: Performing Lab:HOLLI [facility] [id number], [facility] HospitalLdujoyqHX[address] Mary Anne Potter Notes/Report: FASTING:YES PRIOR AUTH REQUIRED, PATIENT ADVISED TO CONTACT PHYSICIAN. FASTING: YES WHITE BLOOD CELL COUNT 9.3 3.8-10.8 Thousand/uL N RED BLOOD CELL COUNT 5.17 4.20-5.80 Million/uL N HEMOGLOBIN 15.7 13.2-17.1 g/dL N HEMATOCRIT 47.8 38.5-50.0 % N MCV 92.5 80.0-100.0 fL N MCH 30.4 27.0-33.0 pg N MCHC 32.8 32.0-36.0 g/dL N red cell parameters and the patient's clinical condition. interpreted with caution in correlation with other value (in the range of 30 to 32 g/dL) is most likely For adults, a slight decrease in the calculated MCHC not clinically significant; however, it should be RDW 12.0 11.0-15.0 % N PLATELET COUNT 184 140-400 Thousand/uL N MPV 9.2 7.5-12.5 fL N ABSOLUTE NEUTROPHILS 6436 5113-3203 cells/uL N ABSOLUTE LYMPHOCYTES 9145 712-1049 cells/uL N ABSOLUTE MONOCYTES 846 200-950 cells/uL N ABSOLUTE EOSINOPHILS 93 15-500 cells/uL N ABSOLUTE BASOPHILS 37 0-200 cells/uL N NEUTROPHILS 69.2 N LYMPHOCYTES 20.3 N MONOCYTES 9.1 N EOSINOPHILS 1.0 N BASOPHILS 0.4 N FERRITIN (457) Reviewed date:01/22/2025 01:35:15 PM Interpretation: Performing Lab:KS, [facility]-Qjsefi[address] [facility], YwysweUR[address] Mary Anne Potter MD Notes/Report: FASTING:YES PRIOR AUTH REQUIRED, PATIENT ADVISED TO CONTACT PHYSICIAN. FASTING: YES FERRITIN 755 38-380 ng/mL H Queued to: [id number] Your request to have a duplicate copy faxed has been acknowledged. COPY(IES) SENT TO: Reviewed date:01/22/2025 01:35:15 PM Interpretation: Performing Lab: Notes/Report: FASTING:YES PRIOR AUTH REQUIRED, PATIENT ADVISED TO CONTACT PHYSICIAN. FASTING: YES COPY(IES) SENT TO: [place] [address] HEREDITARY HEMOCHROMATOSIS D NA MUT (66244) Reviewed date:02/10/2025 06:26:13 PM Interpretation: Performing Lab:EZ, [facility],[address] [address] [place] Louis[place]cilzttbwiSL[address] Mindy Bird MD,PhD,SEAN Notes/Report: SPLIT 01/20/2025 FROM [id number] FASTING:YES FASTING: YES HEREDITARY HEMOCHROMATOSIS DNA MUT See Below secondary iron overload disorders. http://education.Pixsta/faq/hemochro matosis. associated with HH. These variants are detected by LIMITATIONS: This assay does not detect other pathogenic characteristics have been determined by [facility] ethnicity. This assay does not test for other primary or METHODOLOGY: This assay detects two pathogenic variants in for the C282Y pathogenic variant. A smaller percentage of occur. All results should be interpreted in the context of ( ) for assistance with the interpretation of individual. However, it does not rule out the presence of results monitored by Dale Nye, Ph.D., FAC, [facility], Health care providers, please contact your local [facility] DETAILED ASSAY INFORMATION: Hereditary hemochromatosis (HH) [facility], Signed on 02/09/2025 at 13:09 is one of the most common genetic disorders in individuals likelihood of hereditary hemochromatosis (HH) in this [facility]. It has not been the HFE gene. This negative result significantly reduces the depends greatly on family and clinical history as well as Diagnostics' genetic counselor or call [phone] these results. pathogenic variant other than those tested in this assay cleared or approved by FDA. This assay has been validated HFE gene. Most individuals with HH (60-90%) are homozygous Although rare, false positive or false negative results may (This link is being provided for informational/educational is negative for the C282Y and H63D pathogenic variants in Your request to have a duplicate copy faxed has been acknowledged. H63D (NM 416209.2: c.187C>G, p.Sda85Xjj), that are commonly the C282Y and H63D pathogenic variants (3%-8%), or can result in iron overload and potential organ failure. It purposes only.) Queued to: [id number] Interpretation: DNA testing indicates that this individual Reviewed and signed by Laboratory testing supervised and other pathogenic variants within the HFE gene or a diagnosis data. frequency of 10%. HH is caused by pathogenic variants in the homozygous for the H63D pathogenic variant (approximately clinical findings, relevant history, and other laboratory is an autosomal recessive disorder of iron metabolism that RESULT: NEGATIVE purposes. multiplex-polymerase chain reaction (PCR) amplification, followed by restriction enzyme digestion and capillary of - ancestry, with an estimated carrier A portion of the testing was performed at [facility]. Laboratory testing supervised and results monitored by Dale Nye, Ph.D., FACMG, HCLD, CGMB. the HFE gene, C282Y (NM 590314.2: c.845G>A, p.[id number]) and electrophoresis. variants in the HFE gene that may be associated with HH. pursuant to the CLIA regulations and is used for clinical of HH. The risk of this individual to carry an HFE This test was developed and its analytical performance affected individuals are either compound heterozygous for For more information, please refer to 1%). COPY(IES) SENT TO: Reviewed date:02/10/2025 09:10:40 AM Interpretation: Performing Lab: Notes/Report: SPLIT 01/20/2025 FROM [id number] FASTING:YES FASTING: YES COPY(IES) SENT TO: [address] [place] [address] [address]OPE[address] [facility] Reviewed date:06/14/2024 02:53:31 PM Interpretation: Performing Lab:MARTHA [facility],, [address] [place], [address] Mindy Bird MD,PhD,SEAN Notes/Report: FASTING:YES Reference Ranges for Dexamethasone: FASTING: YES Baseline: Less than 20 ng/dL 1 mg dexamethasone overnight: 180-550 ng/dL (8:00-10:00 AM) This test was developed and its analytical performance characteristics have been determined by [facility]. It has not been cleared or approved by FDA. This assay has been validated pursuant to the CLIA regulations and is used for clinical purposes. DEXAMETHASONE 357 CORTISOL, TOTAL Reviewed date:06/06/2024 10:15:12 AM Interpretation: Performing Lab:STEPHANIE, [facility], [address] [address] [facility], [place], [address] Mary Anne Potter MD Notes/Report: Reference Range: For 8 a.m.(7-9 a.m.) Specimen: 4.0-22.0 FASTING:YES Reference Range: For 4 p.m.(3-5 p.m.) Specimen: 3.0-17.0 * Please interpret above results accordingly * FASTING: YES Your request to have a duplicate copy faxed has been acknowledged. 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 Polk Referring Provider First Name Lis Referring Provider Last Name Jam Referring Provider Speciality Endocrinol afia Referred Provider Specialty Hematology Referral Priority Routine Medications Medication SIG (Take, Route, Frequency, Duration) Notes Start Date End Date Status dexAMETHasone 1 MG Tablet 1 tablet Orally at 10 pm night before 8 am cortisol; Duration: 1 days 05/25/2024 Active Fenofibrate 54 MG Tablet 1 tablet with food Orally Once a day Active Lisinopril 20 MG Tablet 1 tablet Orally Once a day Active Simvastatin 20 MG Tablet 1 tablet in the evening Orally Once a day Active Omeprazole 40 MG Capsule Delayed Release 1 capsule 1/2 to 1 hour before morning meal Orally Once a day Active Carvedilol 12.5 MG Tablet 1 tablet with food Orally Twice a day Active KlonoPIN 1 MG Tablet 1 tablet Orally Onc e a day twice daily Active clomiPRAMINE HCl 50 MG Capsule 1 capsule at bedtime Orally Once a day taken for OCD Active Mirtazapine 15 MG Tablet 1 tablet at bedtime Orally Once a day Active Aspirin 325 MG Tablet 1 tablet Orally On ce a day Active Wegovy 0.5 MG/0.5ML Solution Auto-injector 0.5 mL Subcutaneous weekly; Duration: 90 days 01/14/2025 Active Wegovy 0.25 MG/0.5ML Solution Auto-injector 0.5 mL Subcutaneous weekly; Duration: 30 days 01/14/2025 Active Problems Problem Type SNOMED Code ICD Code Onset Dates Problem Status W/U Status Risk Notes Problem Secondary polycythemia (31267087) Secondary polycythemia (D75.1) Active confirmed Problem Obesity (147012102) Obesity, unspecified (E66.9) Active confirmed Problem Hemochromatosis (890727866) Hemochromatosis, unspecified (E83.119) Active confirmed Problem Generalized anxiety disorder (14059251) Generalized anxiety disorder (F41.1) Active confirmed Problem Insomnia (875963806) Insomnia due to medical condition (G47.01) Active confirmed Problem Erectile dysfunction co-occurrent and due to arterial insufficiency (disorder) (076985529564312) Erectile dysfunction due to arterial insufficiency (N52.01) Active confirmed Problem Erectile dysfunction (disorder) (061058261) Other male erectile dysfunction (N52.8) Active confirmed Problem Prediabetes (752092807) Prediabetes (R73.03) Active confirmed Problem Obstructive sleep apnea (84088116) Obstructive sleep apnea (G47.33) Active confirmed Problem Secondary erythrocytosis (66504664) 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 Polk [address] [place] [id number] 05/25/2024 Lis Wood Obesity, unspecified E66.9 ; Abnormal weight gain R63.5 ; Generalized anxiety disorder F41.1 ; Insomnia due to medical condition G47.01 and Encounter for screening for lipoid disorders Z13.[address] Polk [address] [place] [address] 06/29/2024 Lis Wood Obesity, unspecified E66.9 ; Generalized anxiety disorder F41.1 ; Insomnia due to medical condition G47.01 and Obstructive sleep apnea G47.[address] Polk [address] [place] [phone] 01/14/2025 Lis Wood Obstructive sleep ap mg G47.33 ; Impaired fasting glucose R73.01 ; Secondary polycythemia D75.1 ; Obesity, class 1 E66.811 ; Erectile dysfunction due to arterial insufficiency N52.01 and Dietary counseling and surveillance Z71.[address] Polk [address] [place], [place] [phone] 01/26/2025 Lis Polk Secondary erythrocyt osis D75.1 ; Elevated liver enzymes R74.8 ; Other male erectile dysfunction N52.8 and Prediabetes R73.03 [facility] [address] [place], [place] [phone] 05/25/[address] Polk [address] [place], [place] [phone] 06/11/[address] Polk [address] [place], [place] [phone] 08/24/2024 Lis Polk [facility] [address] [place] [id number] 08/26/2024 Lis Polk AMMO [facility] [address] [place], [place] [phone] 08/31/[address] Polk [address] [place] [phone] 09/09/2024 Lis Polk [address] [place], [place] [phone] 12/24/2024 Lis Polk [address] [place] [phone] 12/24/2024 Lis Polk AMMO [facility] [address] [place] [phone] 01/01/2025 Lis Polk Obesity, unspecified E66.[address] Polk [address] [place] [phone] 01/14/2025 Lis Polk [address] [place] [phone] 01/20/2025 Lis Polk AMMO [facility] [address] [place], [place] [phone] 01/26/2025 Lis Polk Elevated liver enzym es R74.8 AMMO [facility] [address] [place], [place] [phone] 01/27/20[address] Lis [address]k [id number] [place] [phone] 02/04/2025 Lis Polk Assessments Encounter Date Diagnosis (ICD Code) Assessment Notes Treatment Notes Treatment Clinical Notes Section Notes 05/25/2024 Obesity, unspecified (ICD-10 - E66.9) 05/25/2024 Abnormal weight gain (ICD-10 - R63.5) 06/29/2024 Obesity, unspecified (ICD-10 - E66.9) 06/29/2024 Generalized anxiety disorder (ICD-10 - F41.1) 01/01/2025 Obesity, unspecified (ICD-10 - E66.9) 01/14/2025 Impaired fasting glucose (ICD-10 - R73.01) 01/14/2025 Obstructive sleep apnea (ICD-10 - G47.33) 01/26/2025 Elevated liver enzymes (ICD-10 - R74.8) 01/26/2025 Secondary erythrocytosis (ICD-10 - D75.1) 01/26/2025 Elevated liver enzymes (ICD-10 - R74.8) 01/26/2025 Other male erectile dysfunction (ICD-10 - N52.8) 01/14/2025 Secondary polycythemia (ICD-10 - D75.1) 06/29/2024 Insomnia due to medical condition (ICD-10 - G47.01) 05/25/2024 Generalized anxiety disorder (ICD-10 - F41.1) 05/25/2024 Insomnia due to medical condition (ICD-10 - G47.01) 06/29/2024 Obstructive sleep apnea (ICD-10 - G47.33) 01/26/2025 Prediabetes (ICD-10 - R73.03) 01/14/2025 Obesity, class 1 (ICD-10 - E66.811) 01/14/2025 Erectile dysfunction due to arterial insufficiency (ICD-10 - N52.01) 05/25/2024 Encounter for screening for lipoid disorders (ICD-10 - Z13.220) 01/14/2025 Dietary counseling and surveillance (ICD-10 - Z71.3) Spent 15 minutes preventative counseling patient on dietary recommendations and changes in setting of hyperglycemia- need to restrict refined sugars and processed foods and incorporate up to 150 minutes of moderate level activity weekly. 05/25/2024 Other Assessment and Plan: 1. Anxiety [...] Insomnia- Persist with current sleep aids, including [id number]-sanrbcj options, Mirtazapine 15 mg, and Acetaminophen- Evaluate [...] for blood work and dexamethasone prescription to [facility]- Provide explicit instructions for lab tests, [...] procedures, referring and communicating with other health medicare coordinator, documenting clinical information in the electronic [...] labrum tear from overextension while crossing a rampart. Hip surgery is scheduled for the coming [...] procedures, referring and communicating with other health medicare coordinator, documenting clinical information in the electronic [...] were discussed and all questions were answered. 01/14/2025 Nelson Lopez is a male patient with a history of hip surgery, presenting with multiple health concerns including pre-diabetes, elevated liver enzymes, sleep apnea, and erectile dysfunction. Pre-diabetesAssessment: Patient's recent blood work indicates high blood sugar levels, suggesting pre-diabetes. This condition is further complicated by the patient's sleep apnea and weight issues. The patient failed a sleep study and has not yet started CPAP therapy.Plan:- Consider prescribing Wegovy (semaglutide) for weight loss and liver issues, pending insurance coverage- Encourage initiation of CPAP therapy for at least 2 months to improve lung and heart function- Recommend walking for exercise, particularly to aid in recovery from recent hip surgery Elevated liver enzymesAssessment: Patient has elevated liver enzymes, potentially indicating liver dysfunction. There is concern about possible hemochromatosis, which can cause iron deposition in the liver, pituitary, and heart. The patient's hemoglobin is 17, suggesting a volume issue. The patient's has expressed concern about his liver due to alcohol consumption.Plan:- Order tests for hemochromatosis and iron levels- If iron levels are over 500, refer to Dr. Walter in [place] for phlebotomies- Consider MRI of the liver if iron levels are high- Advise patient to reduce alcohol intake- Monitor liver function closely Erectile dysfunctionAssessment: Patient reports longstanding issues with sexual dysfunction, progressively worsening since his twenties. He has a history of testicular torsion at age 17, which may be contributing to his current symptoms. Testosterone levels are within normal range at 543. Cardiovascular factors may be contributing, as the patient has elevated blood pressure.Plan:- Refer patient to a urologist for further evaluation of erectile dysfunction, including assessment of blood flow and anatomical issues- Consider trial of sildenafil or Cialis if not contraindicated- Advise against testosterone therapy as levels are normal and it may increase risk of heart attack and stroke Sleep apneaAssessment: Patient failed a sleep study, indicating sleep apnea. CPAP therapy has been recommended but not yet initiated.Plan:- Strongly encourage initiation of CPAP therapy for at least 2 months- Follow up on CPAP kit order status- Educate patient on the importance of CPAP therapy for improving lung and heart function, and potentially alleviating other health issues Medication managementAssessment: Patient is currently taking multiple medications including simvastatin, lisinopril, fenofibrate, mirtazapine, clomipramine, clonidine, clozapine, carvedilol, omeprazole, and aspirin 325 mg.Plan:- Continue current medication regimen, including aspirin 325 mg- Monitor for any side effects or interactions- Reassess medication efficacy at follow-up appointments Spent 25 minutes preparing to see the patient (ex review of tests/chart), obtaining and / or reviewing separately obtained history, performing a medically appropriate examination and/or evaluation, counseling and educating the patient/family/caregiver, ordering medications, tests, or procedures, referring and communicating with other health medicare coordinator, documenting clinical information in the electronic or other health record, independently interpreting results and communicating results to the patient/family/caregiver and care coordinating patient plan. Patient alert and oriented x 4 and aware of discussion noted above and in agreeance to plan in management of CEZAR, impaired glucose/prediabetes, ED, obesity, secondary erythrocytosis, and concern for hemochromatosis. 01/26/2025 Nelson Lopez is a male patient with elevated liver enzymes, high iron levels, and possible hemochromatosis, presenting with concerns about diabetes and erectile dysfunction. Suspected HemochromatosisAssessment : Patient presents with laboratory findings suggestive of hemochromatosis, including elevated iron saturation (83%, normal 45%) and ferritin (755, normal ~250). Additional symptoms include elevated liver enzymes, low testosterone, and glucose metabolism issues. Genetic testing for hemochromatosis is pending. The combination of these findings raises strong suspicion for hemochromatosis, a genetic disorder affecting iron metabolism.Plan:- Await results of genetic testing for hemochromatosis- Referral to window shade cloth sewer (Dr. Walter) for further evaluation and potential treatment- Order liver MRI to assess for iron deposition- Recommend dietary modifications: avoid high iron foods (red meat, organ meats, deer, bison), focus on low iron foods (salads, fruits, vegetables, turkey, chicken, cooked fish, white fish)- If hemochromatosis is confirmed, consider new medication options and potential phlebotomy treatment- Follow up with patient once genetic test results are available Elevated Liver EnzymesAssessment: Patient has persistently elevated liver enzymes. This finding, in conjunction with high iron levels, raises concern for potential liver damage secondary to iron overload. Alcohol use may be a contributing factor.Plan:- Order liver MRI for detailed assessment of liver tissue- Encourage reduction in alcohol consumption- If MRI shows iron deposition, refer to ski topper for further management PrediabetesAssessment: Patient mentions having diabetes. Specific details about glycemic control or current management were not discussed.Plan:- Continue current hyperglycemia management (details not specified in transcript)- Patient to inform [employer] program about diabetes diagnosis Erectile DysfunctionAssessment: Patient has been diagnosed with erectile dysfunction. No details provided about severity or current management.Plan:- Urologist to manage erectile dysfunction- Patient advised to schedule appointment with urologist (no referral needed if PPO insurance) Spent 25 minutes preparing to see the patient (ex review of tests/chart), obtaining and / or reviewing separately obtained history, performing a medically appropriate examination and/or evaluation, counseling and educating the patient/family/caregiver, ordering medications, tests, or procedures, referring and communicating with other health medicare coordinator, documenting clinical information in the electronic or other health record, independently interpreting results and communicating results to the patient/family/caregiver and care coordinating patient plan. Patient alert and oriented x 4 and aware of discussion noted above and in agreeance to plan in management of erythrocytosis, elevated liver enzymes, prediabetes and erectile dysfunction. Due to the nature of telemedicine, the [...] Treatment Pending Test Test Name Order Date MRI : Abdomen with and without Contrast 01/26/2025 Sleep Study [facility] [id number] 06/29/2024 *MRI ABDOMEN W/ AND W/O [id number] 01/26/2025 Insurance Providers Payer Name Payer Address Payer Phone Subscriber Number Group Number Insured Name Patient Relationship to Insured Coverage Start Date Coverage End Date [place] [address] [address] [place] [id number] Soy Bucio Self - patient is the insured Medical (General) History Medical History History ICD Code hypertension obesity insomnia generalized anxiety
--- OUTSIDE RECORDS SUMMARY | 2025-03-23 16:35 | XMS_ITS | Clinical Summary ---
Author Organization [facility] Bubbamechelle isatu Jocelynlyle Address [address] [place] [address] Care Team Providers Care Apartment Community Assistant Manager Name Role Phone Sonia Moo Koenig DO Primary Care Provider Allergies No known active allergies Medications aspirin (ECOTRIN EC) 81 mg Tablet, Delayed Release (E.C.) Take 81 mg by mouth. Active clonazePAM (KlonoPIN) 1 mg tablet Take 1 mg by mouth. Active fenofibrate (LOFIBRA) 54 mg Take 54 mg by mouth. Active mirtazapine (REMERON) 15 mg tablet Take 15 mg by mouth daily at bedtime. Active simvastatin (ZOCOR) 20 mg tablet Take 20 mg by mouth daily at bedtime. Active carvediloL (COREG) 12.5 mg tablet Take 12.5 mg by mouth daily. 5 Active DULoxetine (CYMBALTA) 60 mg Capsule, Delayed Release(E.C.) Take 60 mg by mouth daily. 5 Active lisinopriL (PRINIVIL) 20 mg tablet Take 20 mg by mouth daily. Active naltrexone (DEPADE) 50 mg tablet Take 50 mg by mouth daily. Active omeprazole (PriLOSEC) 40 mg Capsule, Delayed Release(E.C.) Take 1 Capsule by mouth daily. 5 Active Wegovy 0.5 mg/0.5 mL Pen Injector Inject 0.5 mg by subcutaneous injection every 7 days. 5 Active Active Problems Problem Noted Date Diagnosed Date Secondary hypercoagulable state 09/22/2020 Encounters Date Type Department Care Team Description 03/23/2025 3:00 PM CONTINGENTS SUPERVISOR Office Visit [facility] - [place] [address] [place] [address] Bimal Walter MD Iron overload (Primary Dx); Erythrocytosis from Last 3 Months Family History Medical History Relation Name Comments No Known Problems Father Breast Cancer Mother No Known Problems Sister No Known Problems Son Relation Name Status Comments Father Mother Sister Alive Son Alive Social History [...] on file Legal Sex Male 2:51 AM CONTINGENTS SUPERVISOR Gender Identity Not on file Sexual Orientation Not on file Last Filed Vital Signs Vital Sign Reading Time Taken Comments Blood Pressure 136/91 03/23/2025 2:46 PM CONTINGENTS SUPERVISOR Pulse 85 03/23/2025 2:43 PM CONTINGENTS SUPERVISOR Temperature 36.7 C (98 F) 03/23/2025 2:43 PM CONTINGENTS SUPERVISOR Respiratory Rate 16 03/23/2025 2:43 PM CONTINGENTS SUPERVISOR Oxygen Saturation 93% 03/23/2025 2:43 PM CONTINGENTS SUPERVISOR Inhaled Oxygen Concentration - - Weight 113.8 kg (250 lb 12.8 oz) 03/23/2025 2:43 PM CONTINGENTS SUPERVISOR Height 193 cm (6' 4) 03/23/2025 2:43 PM CONTINGENTS SUPERVISOR Body Mass Index 30.53 03/23/2025 2:43 PM CONTINGENTS SUPERVISOR Plan of Treatment Upcoming Encounters Date Type Department Care Team (Late st Contact Info) Description 04/07/2025 4:30 PM CONTINGENTS SUPERVISOR Telephone Check Up [facility] - [facility] [address] [place] [address] Lorena Foster MD [address] [place] [address] Health Maintenance Due Date Last Done Comments DTAP/TDAP/TD VACCINES (1 - Tdap) 1990 HEPATITIS B VACCINES (1 of 3 - 19+ 3-dose series) 02/17 COLORECTAL SCREENING 2016 Colorectal Cancer Screening 2016 FIT-DNA Q 3 years 2016 FIT/FOBT Q 1 year 2016 Flex Sig/CT Colonography Q 5 years 2016 ZOSTER VACCINE (1 of 2) 2021 Preventative Visit- Commercial 05/20/2024 INFLUENZA VACCINE (#1) 2024 Insurance BS BLUE ACCESS/TRUE BLUE PPO Care Teams Apartment Community Assistant Manager Relationship Specialty Start Date End Date Moo Scott DO [address] [facility] [address] [place] [address] PCP - General Internal Medicine 03/23/25
--- OUTSIDE RECORDS SUMMARY | 2025-03-23 16:35 | XMS_ITS | Patient Health Record ---
Author Organization [facility] Address [address] [address] Care Team Providers Care Information Security Architect Name Role Phone Jam Lis Primary Care Provider [phone] Allergies No Known Allergies Results Component Value Reference Range Notes DEXAMETHASONE Reviewed date:06/14/2024 02:53:31 PM Interpretation: Performing Lab:[facility],, [address] [place], [address] Mindy Bird MD,PhD,SEAN Notes/Report: FASTING:YES FASTING: YES DEXAMETHASONE 357 Reference Ranges for Dexamethasone: Baseline: Less than 20 ng/dL 1 mg dexamethasone overnight: 180-550 ng/dL (8:00-10:00 AM) This test was developed and its analytical performance characteristics have been determined by [facility]. It has not been cleared or approved by FDA. This assay has been validated pursuant to the CLIA regulations and is used for clinical purposes. CORTISOL, TOTAL Reviewed date:06/06/2024 10:15:12 AM Interpretation: Performing Lab:[facility], [address] [facility] [place], [address] Mary Anne Potter MD Notes/Report: FASTING:YES FASTING: YES ACTH, PLASMA Reviewed date:06/20/2024 07:39:26 PM Interpretation: Performing Lab:[facility], [address], [place], [address] Dominick Diana M.D.,PhD Notes/Report: DHEA SULFATE Reviewed date:06/18/2024 01:24:34 PM Interpretation: Performing Lab:[place], [facility], [address], [place], [address] Mary Anne Potter MD Notes/Report: FSH Reviewed date:06/18/2024 01:24:34 PM Interpretation: Performing Lab:[place], [facility], [address], [place], [address] Mary Anne Potter MD Notes/Report: INSULIN Reviewed date:06/18/2024 01:24:34 PM Interpretation: Performing Lab:[place], [facility], [address], [place], [address] Mary Anne Potter MD Notes/Report: LH Reviewed date:06/18/2024 01:24:34 PM Interpretation: Performing Lab:[place], [facility], [address], [place], [address] Mary Anne Potter MD Notes/Report: VITAMIN B12/FOLATE, SERUM PA MARIA T Reviewed date:06/18/2024 01:24:34 PM Interpretation: Performing Lab:[place], [facility], [address], [place], [address] Mary Anne Potter MD Notes/Report: PROLACTIN Reviewed date:06/18/2024 01:24:34 PM Interpretation: Performing Lab:[place], [facility], [address], [place], [address] Mary Anne Potter MD Notes/Report: LIPID PANEL Reviewed date:06/18/2024 01:24:34 PM Interpretation: Performing Lab:[facility], [facility], [address], [place], [address] Mary Anne Potter Notes/Report: Reason For Referral No Information Medications Medication SIG (Take, Route, Frequency, Duration) Notes Start Date End Date Status Fenofibrate 54 MG 1 tablet with food Orally Once a day Active Lisinopril 20 MG 1 tablet Orally Once a day Active dexAMETHasone 1 MG 1 tablet Orally at 1 0 pm night before 8 am cortisol; Duration: 1 days 05/25/2024 Active Simvastatin 20 MG [...] Status W/U Status Risk Notes Problem Obesity (244892699) Obesity, unspecified (E66.9) Active confirmed Problem Generalized anxiety disorder (63990316) Generalized anxiety disorder (F41.1) Active confirmed Problem Insomnia (701569512) Insomnia due to medical condition (G47.01) Active confirmed Vital Signs Heart Rate 82 /min 05/25/2024 Respiratory Rate 12 /min 05/25/2024 Blood pressure diastolic 80 mm Hg 05/25/2024 Height 74 in 06/29/2024 Blood pressure systolic 130 mm Hg 05/25/2024 Weight 250 lbs 06/29/2024 BMI 32.09 kg/m2 06/29/2024 Encounters Encounter Location Date Provider Diagnosis [facility] [address] [place] [address] 05/25/2024 Lis [employer] [facility], [facility] - [facility] [employer] [address] [place] [address] 06/11/2024 Lis [facility] [facility], [facility] - [facility] [employer] [address] [place] [address] 06/19/2024 Lis [employer] [facility], [facility] - [facility] [employer] [address] [place] [address] 05/25/2024 Lis Polk Obesity, unspecified E66.9 ; Abnormal weight gain R63.5 ; Generalized anxiety disorder F41.1 ; Insomnia due to medical condition G47.01 and Encounter for screening for lipoid disorders Z13.220 [facility], [facility] - [facility] [employer] [address] [place] [address] 06/29/2024 Lis Polk Assessments Encounter Date Diagnosis [...] Insomnia- Persist with current sleep aids, including mbvw-fan-tzhhrxm options, Mirtazapine 15 mg, and Acetaminophen- Evaluate [...] for blood work and dexamethasone prescription to [facility]- Provide explicit instructions for lab tests, [...] procedures, referring and communicating with other health care coordinator, documenting clinical information in the [...] Insured Coverage Start Date Coverage End Date [facility] [address] [address] [place] [address] [phone] [id number] Soy Bucio Self - patient is the insured Medical (General) History Medical History History ICD Code hypertension obesity insomnia generalized anxiety
[2025-03-23 17:59] LABS: Alanine Aminotransferase 41 U/L (6-50); Albumin Level 4.9 g/dL (3.5-5.1); Alkaline Phosphatase 54 U/L (38-126); Anion Gap 9 mmol/L (4-12); Aspartate Amino Transferase 49 U/L (17-59); Bilirubin,Total 0.5 mg/dL (0.2-1.3); Blood Urea Nitrogen 14 mg/dL (9-20); Calcium 9.8 mg/dL (8.4-10.2); Carbon Dioxide 27 mmol/L (22-30); Chloride 100 mmol/L (98-107); Estimated Glomerular Filt Rate > 60; Glucose 96 mg/dL (65-110); Potassium 4.9 mmol/L (3.4-5.0); Sodium 136 mmol/L (137-145); Total Protein 7.7 g/dL (6.3-8.2)
[2025-03-23 18:00] LABS: Iron 114 ug/dL (49-181)
[2025-03-23 18:11] LABS: Percent Iron Saturation 37 % (20-50)
[2025-03-23 18:46] LABS: Ferritin 344.00 ng/mL (11.1-264)
== END 2025-03-23 15:16 | disposition home or self-care (01) ==
LOC: ANHLAB 15:16
PROVIDERS: PCP Internal Medicine; Visit Provider Internal Medicine Hematology & Oncology
DX: E83.19 Other disorders of iron metabolism (principal); D75.1 Secondary polycythemia
CPT/HCPCS: 36415; 80053; 82668; 82728; 83540; 83550; 85025